=== PATIENT | male | born 1965 | race Caucasian/White ===

== ENCOUNTER 2017-10-21 05:13 | Inpatient (IN) | payer OTHER ==
[2017-10-01 11:06] VITALS: Ht 175.3 cm; Wt 109.5 kg
--- NOTE | 2017-10-01 11:32 | PAT Medication Instructions ---
Service Date Oct 01, 2017. Current Home Medication List Acetaminophen Tab (Tylenol), 650 MG PO PRN Azathioprine (Imuran), 100 MG PO QPM B-Complex W/ Folic Acid (Super B Complex Maxi), 1 TAB PO QPM Cholecalciferol (Vitamin D3), 1,000 UNITS PO BID Cyanocobalamin (Vitamin B12), 1,000 MCG PO QAM Fenugreek (Trigonella Foenum-G (Fenugreek), 1,220 MG PO BID Fish Oil ([place]-3), 1 CAP PO BID Ginkgo Biloba (Ginkgo Biloba), 60 MG PO BID Misc Natural Products (Ginkgo Biloba) Multivitamin (Multivitamin), 1 TAB PO QAM Omeprazole (Prilosec), 20 MG PO QAM Saw Headrick (Serenoa Repens) (Saw Headrick), 900 MG PO BID Blu's Wort (Sand Pillow Perf (St Wyman Wort), 300 MG PO BID Sulfasalazine (Azulfidine), 1,000 MG PO BID [Calcium], 1,200 MG PO BID [Folic Acid], 800 MCG PO QPM [Voltaren Gel], 1 DOSE TOP PRN Medication Instructions For Your Scheduled Surgery - Check with surgeon and prescribing physician for instructions: Sulfasalazine (Azulfidine), 1,000 MG PO BID Azathioprine (Imuran), 100 MG PO QPM - Hold the following medications 2 weeks prior to surgery: Saw Headrick (Serenoa Repens) (Saw Headrick), 900 MG PO BID Blu's Wort (Sand Pillow Perf (St Wyman Wort), 300 MG PO BID Fish Oil ([place]-3), 1 CAP PO BID Ginkgo Biloba (Ginkgo Biloba), 60 MG PO BID Misc Natural Products (Ginkgo Biloba) Fenugreek (Trigonella Foenum-G (Fenugreek), 1,220 MG PO BID - Hold the following medications 24 hours prior to surgery: [Voltaren Gel], 1 DOSE TOP PRN - Hold the following medications the morning of surgery: B-Complex W/ Folic Acid (Super B Complex Maxi), 1 TAB PO QPM Cholecalciferol (Vitamin D3), 1,000 UNITS PO BID Cyanocobalamin (Vitamin B12), 1,000 MCG PO QAM Multivitamin (Multivitamin), 1 TAB PO QAM [Calcium], 1,200 MG PO BID - Take the following medications the morning of surgery with a sip of water: Omeprazole (Prilosec), 20 MG PO QAM Acetaminophen Tab (Tylenol), 650 MG PO PRN (okay to take up to 4 hours prior to surgery if needed) - Take the following medications as scheduled the night before surgery: [Folic Acid], 800 MCG PO QPM [Calcium], 1,200 MG PO BID Acetaminophen Tab (Tylenol), 650 MG PO PRN (if needed) If you have any questions please call us at [phone] or [phone] or [phone]
--- NOTE | 2017-10-01 12:14 | DIAGNOSTIC IMAGING REPORT ---
CHEST 2 VIEWS ROUTINE HISTORY: 52 years-old Male PAT preoperative exam. No acute chest complaints. COMPARISON: None available TECHNIQUE: PA and lateral views of the chest FINDINGS: Cardiac mediastinal and hilar silhouettes are within normal limits. Patient is slightly rotated to the right. There is no pneumothorax, pleural effusion, focal airspace consolidation or overt pulmonary edema. The bones of the chest appear grossly intact. Degenerative changes are seen within the shoulders and spine. Mild anterior wedging of a lower thoracic segment, likely the T11 vertebral body is noted which is age indeterminate. IMPRESSION: No acute process of the chest. The above report was generated using voice recognition software. It may contain grammatical, syntax or spelling errors. Electronically signed by: Jl Apple M.D. 10/01/2017 12:13 PM Dictated Date/Time: 10/01/2017 12:11 PM
[2017-10-01 12:16] LABS: BASO % 0.2 %; BASO ABS # 0.01 K/uL (0-0.2); EOS % 0.4 %; EOS ABS # 0.02 K/uL (0-0.5); HEMATOCRIT 40.4 % (42-52); HEMOGLOBIN 13.5 g/dL (14.0-18.0); IG# 0.01 K/uL (0.00-0.02); LYMPH % 20.2 %; LYMPH ABS # 1.03 K/uL (1.2-3.4); MEAN CELL VOLUME 84.3 fL (80-100); MEAN CORPUSCULAR HEMOGLOBIN 28.2 pg (25-34); MEAN CORPUSCULAR HGB CONC 33.4 g/dl (32-36); MEAN PLATELET VOLUME 8.9 fL (7.4-10.4); MONO ABS # 0.51 K/uL (0.11-0.59); NEUT ABS # 3.52 K/uL (1.4-6.5); PLATELET COUNT 257 K/uL (130-400); RED CELL DISTRIBUTION WIDTH CV 14.3 % (11.5-14.5); RED CELL DISTRIBUTION WIDTH SD 44.6 fL (36.4-46.3)
[2017-10-01 12:27] LABS: ALBUMIN 3.4 gm/dl (3.4-5.0); CALCIUM 9.1 mg/dl (8.5-10.1); CREATININE 0.79 mg/dl (0.60-1.40); POTASSIUM 4.1 mmol/L (3.5-5.1)
[2017-10-01 12:35] LABS: INR 1.1 (0.9-1.1); PTT PATIENT 29.9 SECONDS (21.0-31.0)
[2017-10-01 12:56] LABS: HEMOGLOBIN A1C 4.6 % (4.5-5.6)
--- NOTE | 2017-10-14 15:35 | HISTORY & PHYSICAL EXAMINATION ---
DATE OF ADMISSION: 10/21/2017 CHIEF COMPLAINT: Right knee pain. HISTORY OF PRESENT ILLNESS: Mr. Pham is a 52-year-old male with a multiple year history of right knee pain. The patient rates his pain at 5/10. He has pain with his daily activities. He has limited standing and walking tolerance. Pain is worse with weightbearing. The patient has previous injections, knee arthroscopy and bracing and Tylenol without relief. He has failed conservative treatment and is scheduled for right knee replacement. PAST MEDICAL HISTORY: Crohn's disease. Denies heart disease, diabetes or DVT. PAST SURGICAL HISTORY: Umbilical hernia resection and right knee arthroscopy. SOCIAL HISTORY: The patient denies alcohol or tobacco use. He lives in a single story home with his and his father. He is currently off on disability. FAMILY HISTORY: Negative for DVT. MEDICATIONS: Fish oil, Tylenol, Super B Complex, Prilosec 20 mg, folic acid 1 mg, sulfasalazine 500 mg, and vitamin D3 of 5000 units. ALLERGIES: None. REVIEW OF SYSTEMS: See HPI. Ten other systems reviewed, all negative. PHYSICAL EXAMINATION: VITAL SIGNS: Height 5 feet 9 inches, weight 242 pounds, and BMI 36. GENERAL: This is a well-developed and well-nourished male who is alert and oriented x3. Mood and affect are appropriate. HEENT: Normocephalic and atraumatic. Mucous membranes are moist and intact. NECK: Supple without lymphadenopathy. HEART: Regular rate and rhythm without murmurs, rubs or gallops. LUNGS: Clear to auscultation without wheezes or rhonchi. ABDOMEN: Soft and nontender. Bowel sounds are equal and active. EXTREMITIES: No ecchymosis, redness or warmth. He has varus deformity. Range of motion is from 10-95 degrees with no laxity. He is neurovascularly intact. He has moderate effusion. Mild distal edema noted. Strength is +5/5. X-RAY EXAMINATION: AP and lateral views show joint space narrowing and osteophyte formation. IMPRESSION: Degenerative joint disease, right knee. PLAN: The patient will be admitted for a right total knee arthroplasty. We will plan on aspirin for DVT prophylaxis. The patient will do home health physical therapy upon discharge. VALERIY
[~2017-10-21] VITALS: Ht 175.3 cm; Wt 109.5 kg
[2017-10-21] VITALS (11 sets, daily range): BP systolic 107–132; BP diastolic 72–91; PULSE 80–110; TEMP 36.3–37; O2SAT 94–98
[~2017-10-21 05:13] MED LIST: ACET-1693 PO; AZAT50TA17 PO; B-CO-25 PO; CALC-51 PO; CHOL1CAP57 PO; CYAN100020 PO; FENU1CAP2 PO; FOLIC ACID PO; GINK60TA PO; MISCTAB26; MULT-506 PO; OMEG10007 PO; PRLSR20 PO; SAW450CA5 PO; ST J300T2 PO; SULF500T36 PO; VOLTAREN GEL TOP
[2017-10-21] MEDS ORDERED: CeleBREX 200 MG CAP PO SCH (06:00)
[2017-10-21] MEDS ORDERED: DEXAMETHASONE 4 MG TAB PO SCH (06:00)
[2017-10-21] MEDS ORDERED: CEFAZOLIN 2000MG IV PUSH 15 ML IV SCH (06:00)
[2017-10-21] MEDS ORDERED: GABAPENTIN 900 MG PO SCH (06:00)
[2017-10-21] MEDS ORDERED: LACTATED RINGER'S 1000ML 1,000 ML IV SCH (06:00)
[2017-10-21] MEDS ORDERED: ROPIVACAINE 5MG/ML 30 ML 150 MG, BUPIVACAINE 0.5% MPF INJ 30 ML, EpINEphrine HCL INJ 0.... INFIL SCH ×8 (06:00)
[2017-10-21] MEDS ORDERED: LACTATED RINGER'S 1000ML 500 ML IV SCH (06:00)
[2017-10-21] MEDS ORDERED: METOCLOPRAMIDE HCL 10 MG TAB PO SCH (06:00)
[2017-10-21] MEDS ORDERED: ACETAMINOPHEN 500 MG TAB PO SCH (06:00)
[2017-10-21] MEDS ORDERED: FAMOTIDINE 20 MG TAB PO SCH (06:00)
[2017-10-21] MEDS ORDERED: PROPOFOL IV EMULSION 10 MG/ML 20 ML VIAL IV ONE (06:23)
[2017-10-21] MEDS ORDERED: FENTANYL CITRATE INJ 50 MCG/1 ML 2 ML VIAL ONE (06:24)
[2017-10-21] MEDS ORDERED: MIDAZOLAM HCL 1 MG/ML 2ML VIAL ONE ×2 (06:24→06:46)
[2017-10-21] MEDS: TRANEXAMIC ACID INJ 1,000 MG x 2 Bags IV SCH ×4 (06:30→06:41)
[2017-10-21] MEDS ORDERED: ROPIVACAINE 0.5% 5 MG/ML 30 ML VIAL ONE (06:32)
[2017-10-21] MEDS ORDERED: BUPIVACAINE 0.5 % 5 MG/1 ML PF 10ML VIAL ONE (06:32)
[2017-10-21] MEDS ORDERED: POVIDONE-IODINE OP SOLN 30 ML BTL ONE (06:51)
[2017-10-21] MEDS ORDERED: ORTHO JOINT ANESTHETIC ONE (06:51)
[2017-10-21] MEDS ORDERED: BACITRACIN 50000 UNIT VIAL ONE (06:51)
--- NOTE | 2017-10-21 07:07 | History & Physical Bridge Note ---
H&P Re-Evaluation Bridge Note: I have examined the patient, reviewed the History & Physical and in the interval since the performance of the History & Physical I have noted the following changes of clinical significance: No changes noted
--- NOTE | 2017-10-21 08:29 | [facility] Post Operative Brief Note ---
Immediate Operative Summary Operative Date Oct 21, 2017. Pre-Operative Diagnosis Degenerative joint disease, right knee Post-Operative Diagnosis Same as preop Procedure(s) Performed Right Total Knee Arthroplasty utilizing Mccartney nephPredictivez journey to non block total knee arthroplasty size 7 femur 6 tibia 9 hien [address] Rothman Harvest Manager Surgeon(s) Renato Agosto PA-C Estimated Blood Loss 5 cc Findings Consistent with Post-Op Diagnosis Specimens A: right knee bone and tissue Anesthesia Type MAC Spinal Regional Complication(s) none Disposition Disposition: Recovery Room / PACU
--- NOTE | 2017-10-21 08:30 | [facility] Operative Report ---
Operative Report Operative Date Oct 21, 2017. Pre-Operative Diagnosis Degenerative joint disease, right knee Post-Operative Diagnosis Same as preop Procedure(s) Performed Right Total Knee Arthroplasty utilizing [facility]ney [facility] [employer] journey to non block total knee arthroplasty size 7 femur 6 tibia 9 hien [address] Rothman Drawbench Operator Helper Surgeon(s) Renato Agosto PA-C Estimated Blood Loss 5 cc Findings Patient presents with severe end-stage tricompartmental degenerative joint disease no response to conservative therapy including physical therapy anti- inflammatories relative rest activity modification x-rays will be evidence of subchondral cystic changes marginal osteophyte sclerosis Specimens A: right knee bone and tissue Anesthesia Type MAC Spinal Regional Complication(s) none Disposition Recovery Room / PACU Indications Patient presents after failing attempts at conservative management including physical therapy anti-inflammatories relative rest patient's bone to bone varus alignment subchondral cystic changes marginal osteophyte sclerosis Description of Procedure After proper prepping and draping of the Right lower extremity anterior midline incision was made over the region of the extensor extensor mechanism after meticulous hemostasis was obtained and maintained in subcutaneous tissues a medial parapatellar incision was made The patella was subluxed lateralward the medial lateral gutter were cleaned from any hypertrophic synovitis and scar tissue of the distal femoral block was placed and the distal femoral osteotomy cut was made subsequently the chamfers anterior and posterior osteotomy cuts were made utilizing the 4-in-1 block the tibia was subsequently subluxed anteriorward medial and ateral meniscal remnants were excised in their entirety remnants of the anterior and posterior cruciate ligaments were excised in their entirety excellent exposure of the proximal tibia was obtained the tibial osteotomy guide was placed on the proximal tibial osteotomy cut was made once again the knee was irrigated with copious amounts of sterile saline solution the patella was subsequently everted lateralward thickened scar tissue around the patella was removed the patella was subsequently cut utilizing a freehand technique and was drilled prepared for final preparation and placement of patella socially flexion-extension gaps were checked and the equal and symmetric trials were placed to the appropriate femoral and tibial trials with poly-spacer being placed for equal flexion and extension gaps and full range of motion including extension to 0 and flexion to 140 the trial components after having been taken to recovery range of motion was subsequently removed meticulous hemostasis was obtained and maintained subsequently a knee block injection of joint cocktail including ropivacaine 0.5% 150 mg. Bupivacaine 0.5 % epinephrine 1-200,030 mL's toradol 30 mg dexamethasone 4 mg ketamine 10 mg clonidine 100 micrograms normal saline solution 30 mg was infiltrated into the soft tissues of the posterior knee medial lateral gutters and periosteal synovium special attention was paid to protect neurovascular structures at all times subsequently trial components having been removed the knee was irrigated with sterile saline solution. debris was removed the proximal tibia was subsequently prepared and was made ready for the placement of the tibial component tibial component was also cemented and tamped into position the femoral component was subsequently placed and cemented in the position the patellar component was subsequently cemented in position because hemostasis once again obtained and maintained wound having been thoroughly irrigated with debridement and debridement lavage was performed as well as a medial parapatellar incision closed with #1 Vicryl in interrupted fashion subcutaneous was closed with #2 Vicryl skin was closed with skin clips. PA-C was necessary for prepping and drapping as well as wound closure of deep fascia Sub cutaneous tissue and skin and was necessary for the case. A sterile compressive dressing was placed patient was taken to recovery in stable condition of report dictated by Stephan I attest to the content of the Intraoperative Record and any orders documented therein. Any exceptions are noted below. I attest to the content of the Intraoperative Record and any orders documented therein. Any exceptions are noted below.
[2017-10-21] MEDS ORDERED: EpHEDrine SULFATE INJ 50 MG/ML AMP IV PRN (09:00)
[2017-10-21] MEDS ORDERED: ATROPINE SULFATE 0.1 MG/ML 5ML SYR IV PRN (09:00)
[2017-10-21] MEDS ORDERED: SOD PHOSPHATE/SOD BIPHOSPHATE ENEMA 132 ML BTL PR PRN (09:15)
[2017-10-21] MEDS ORDERED: BISACODYL 10 MG SUPP PR PRN (09:15)
[2017-10-21] MEDS ORDERED: MoRPHine SULFATE 2 MG/ML CARP IV PRN (09:15)
[2017-10-21] MEDS ORDERED: ONDANSETRON INJ 2 MG/ML 2 ML VIAL IV PRN (09:15)
[2017-10-21] MEDS ORDERED: MAGNESIUM HYDROXIDE SUSP 30 ML UDC PO PRN (09:15)
[2017-10-21] MEDS ORDERED: ZOLPIDEM TARTRATE 5 MG TAB PO PRN (09:15)
[2017-10-21] MEDS ORDERED: ALUMINUM/MAGNESIUM/SIMETH (MAALOX MAX) 30 ML UDC PO PRN (09:15)
--- NOTE | 2017-10-21 09:43 | DIAGNOSTIC IMAGING REPORT ---
R KNEE 1 OR 2 VIEWS ROUTINE CLINICAL HISTORY: 52 years-old Male presenting with AP/LATERAL IN PACU RIGHT KNEE. TECHNIQUE: Frontal and lateral views of the right knee were obtained. COMPARISON: None. FINDINGS: Postsurgical changes of total right knee arthroplasty with patellar resurfacing. A surgical drain is in place. Expected intra-articular and soft tissue emphysema. Diffuse soft tissue swelling at the knee. No malalignment. No periprosthetic fracture or complication. IMPRESSION: Expected postsurgical appearance status post total right knee arthroplasty with patellar resurfacing. Electronically signed by: Kevin Martini M.D. 10/21/2017 9:42 AM Dictated Date/Time: 10/21/2017 9:41 AM
--- NOTE | 2017-10-21 09:44 | Anesthesiology Progress Note ---
Anesthesia Post Op Note Date & Time Oct 21, 2017 at 09:43 Vital Signs Pain Intensity: 0 Vital Signs Past 12 Hours Date Time Temp Pulse Resp B/P (MAP) Pulse Ox O2 Delivery O2 Flow Rate FiO2 10/21/17 09:35 36.4 88 22 121/84 97 Nasal Cannula 2 10/21/17 09:05 36.0 100 16 113/73 96 Oxymask 10 10/21/17 06:00 36.7 80 18 125/91 94 Room Air Notes Mental Status: alert / awake / arousable, participated in evaluation Pt Amnestic to Procedure: Yes Nausea / Vomiting: adequately controlled Pain: adequately controlled Airway Patency, RR, SpO2: stable & adequate BP & HR: stable & adequate Hydration State: stable & adequate Neuraxial Anesthesia: was administered, sensory block is resolving Anesthetic Complications: no major complications apparent
[2017-10-21] MEDS: KETOROLAC TROMETHAMINE 30 MG/ML VIAL IV. PRN ×2 (12:43→21:58)
[2017-10-21] MEDS ORDERED: MoRPHine SULFATE 10 MG/ML CARP/VIAL IV PRN (12:45)
[2017-10-21] MEDS ORDERED: MoRPHine SULFATE 4 MG/ML 1 ML CARP\\VIAL IV PRN (12:45)
[2017-10-21] MEDS: ACETAMINOPHEN 500 MG TAB PO SCH ×2 (13:25→21:48)
[2017-10-21] MEDS: D5W AND 1/2NSS + 20MEQ KCL 1,000 ML IV SCH ×2 (13:25→22:51)
[2017-10-21] MEDS: OXYCODONE HCL IR 5 MG TAB (IMMEDIATE RELEASE) PO PRN ×2 (16:03→20:51)
[2017-10-21] MEDS: CEFAZOLIN IV 2,000 MG in SYRINGE 0 ML IV SCH ×2 (16:50→23:57)
[2017-10-21] MEDS: VITAMIN B COMPLEX TAB PO SCH (20:43)
[2017-10-21] MEDS: CHOLECALCIFEROL 1000 INTER.UNIT TAB PO SCH (20:43)
[2017-10-21] MEDS: AZATHIOPRINE 50 MG TAB PO SCH (20:43)
[2017-10-21] MEDS: DOCUSATE SODIUM 100 MG CAP PO SCH (20:44)
[2017-10-21] MEDS: ASPIRIN 81 MG ECTAB PO SCH (20:44)
[2017-10-21] MEDS: FoLIC ACID TAB 400 MCG TAB PO SCH (20:44)
[2017-10-21] MEDS: SULFASALAZINE 500 MG TAB PO SCH (20:45)
[2017-10-21] MEDS: CALCIUM 600MG + VIT D 400 IU TAB PO SCH (20:45)
[2017-10-21] MEDS: SENNA 8.6 MG TAB PO SCH (20:47)
[2017-10-21] MEDS ORDERED: CALCIUM 600MG + VIT D 400 IU TAB PO SCH (21:00)
[2017-10-22] VITALS (7 sets, daily range): BP systolic 106–132; BP diastolic 69–82; PULSE 75–103; TEMP 36.5–36.9; O2SAT 92–95
[2017-10-22] MEDS: OXYCODONE HCL IR 5 MG TAB (IMMEDIATE RELEASE) PO PRN ×3 (02:41→13:41)
[2017-10-22] MEDS: KETOROLAC TROMETHAMINE 30 MG/ML VIAL IV. PRN (04:24)
[2017-10-22] MEDS: ACETAMINOPHEN 500 MG TAB PO SCH ×3 (05:34→20:58)
[2017-10-22 08:23] LABS: HEMATOCRIT 32.3 % (42-52); HEMOGLOBIN 10.8 g/dL (14.0-18.0); MEAN CELL VOLUME 82.8 fL (80-100); MEAN CORPUSCULAR HEMOGLOBIN 27.7 pg (25-34); MEAN CORPUSCULAR HGB CONC 33.4 g/dl (32-36); MEAN PLATELET VOLUME 8.6 fL (7.4-10.4); PLATELET COUNT 203 K/uL (130-400); WHITE BLOOD COUNT 6.57 K/uL (4.8-10.8)
--- NOTE | 2017-10-22 08:23 | Orthopedic Progress Note ---
Orthopedic Progress Note Date of Service Oct 22, 2017. Subjective Post OP Day: 1 Reports: feeling well, Denies: chest pain, SOB, nausea / vomiting, light headedness, calf pain Objective calves soft nontender, N/V intact, capillary refill less than 2 sec., dressing C /D/I, A&O x3, toes mobile, hemovac drainage (475/100CC PER SHIFT) Date Time Temp Pulse Resp B/P (MAP) Pulse Ox O2 Delivery O2 Flow Rate FiO2 10/22/17 07:50 36.6 75 16 122/74 (90) 94 Room Air 10/22/17 03:20 36.8 89 18 106/69 (81) 95 Room Air 10/21/17 23:55 Room Air 10/21/17 23:15 37.0 90 18 107/72 (84) 94 Room Air 10/21/17 19:17 36.5 110 18 112/80 (91) 94 Room Air 10/21/17 16:15 95 Nasal Cannula 2.0 10/21/17 14:51 36.3 102 16 107/73 (84) 95 Nasal Cannula 2.0 10/21/17 13:00 98 16 117/82 (94) 98 Nasal Cannula 2.0 10/21/17 12:02 100 16 132/85 (101) 97 Nasal Cannula 2.0 10/21/17 11:00 89 16 123/86 (98) 97 Nasal Cannula 2.0 10/21/17 10:30 98 16 117/80 (92) 96 Nasal Cannula 2.0 10/21/17 10:00 96 Nasal Cannula 2.0 10/21/17 09:59 96 Nasal Cannula 2.0 10/21/17 09:57 36.9 84 18 113/77 (89) 96 Nasal Cannula 2.0 10/21/17 09:45 92 24 115/86 95 Nasal Cannula 2 10/21/17 09:35 36.4 88 22 121/84 97 Nasal Cannula 2 10/21/17 09:05 36.0 100 16 113/73 96 Oxymask 10 Laboratory Results 24 Hours: Test 10/22/17 07:54 Assessment & Plan Assessment: POD#1 SP RIGHT TKA Plan: PT/OT DVT PROPH-ASA 8MG BID PAIN MANAGEMENT- YONI, TYLENOL, CELEBREX DC PLANNING- DC HOME THURS WITH ADVANTAGE DC DRESSING/DRAIN IN AM.
--- NOTE | 2017-10-22 08:24 | Discharge Instructions ---
Discharge Instructions Date of Service Oct 22, 2017. Admission Reason for Admission: Right Knee Osteoarthritis Discharge Discharge Diagnosis / Problem: SP RIGHT TKA Discharge Goals Goal(s): Decrease discomfort, Improve function, Increase independence Activity Recommendations Activity Limitations: per Instructions/Follow-up section . Instructions / Follow-Up Instructions / Follow-Up ACTIVITY RECOMMENDATIONS: SELF CARE INSTRUCTIONS AFTER TOTAL KNEE REPLACEMENT A. You may need to continue a physical therapy program after discharge from the hospital. There are several options available to you. Your doctor will assist you in selecting the best one for you. 1. An out-patient facility 2 to 3 times a week for therapy or home therapy. 2. Continue working on all exercises taught to you in the hospital. Your goals should be to increase bending of your knee to 90 degrees and beyond and to fully straighten your knee. B. You may progress at your own pace from walking with a walker or crutches to a cane; then to no assistive devices. C. Make walking a part of your daily routine. Be up as much as comfortable with rest periods throughout the day. Rest with leg elevation is very important. Use the ice wrap frequently for the first 3-4 weeks. D. There are no restrictions on activities. You may ride in a car, shop, participate in outreach rep and all social activities. E. Wear the long elastic stockings (BUD hose) 20 hours a day for 2 weeks after surgery. They can be removed several times a day for laundering and for a bath. F. You may shower, no tub baths until cleared by your doctor. SPECIAL CARE INSTRUCTIONS: VERY IMPORTANT TO READ AND REVIEW A. There are a few signs you need to watch for after you are home. Call [facility] if you notice any of the followin. Increased severe knee pain. Some pain is expected especially when you exercise. 2. Increased swelling in your leg or knee; pain or swelling of the calf muscle in either lower leg. 3. Any fluid drainage from the incision. 4. Shortness of breath or chest pain. B. Please call [facility] at if you have any concerns or questions about your operation or recovery. The doctor or his nurse will return your call promptly. C. You must take antibiotics before dental work, bladder, bowel or other surgery. Your doctor will provide you with a permanent care to carry describing this precaution. IMPORTANT: * REMEMBER TO TAKE ASPIRIN, 81 MG, TWICE DAILY FOR 4 WEEKS UNLESS OTHERWISE DIRECTED. THIS IS YOUR BLOOD THINNER. * HIGH RISK PATIENTS MAY BE PRESCRIBED A STRONGER BLOOD THINNER. THIS WILL BE PROVIDED AT DISCHARGE. * CALL IF INCREASED PAIN, REDNESS, DRAINAGE OR FEVER GREATER THAT 101. * WEAR BUD HOSE 20 HOURS PER DAY FOR 2 WEEKS. DERMABOND Prineo- This is a mesh tape dressing that is covered with glue. It should remain in place until the incision is properly healed, usually 10-14 days. This dressing is designed to naturally slough off. You may trim the excess mesh tape as it peels off. Incision may be briefly wet in a shower. Dry immediately by blotting with a clean, dry towel. Do not bath or swim until instructed by your doctor. Do not scratch, rub, or pick at the dressing. Do not apply any topical ointments or lotions until dressing is completely removed and/or instructed by your doctor. There may be a small piece of suture material at one end of your incision. Do not pull or trim this. If it is bothersome or catching on clothing, you may cover it with a band-aid. FOLLOW UP VISIT: If appointment is not already scheduled: Please call [facility] to make a follow-up appointment for 2 weeks after your surgery at . Current Hospital Diet Patient's current hospital diet: Regular Diet Discharge Diet Recommended Diet: Regular Diet Procedures Procedures Performed: Right Total Knee Arthroplasty utilizing Mccartney nephTrader Sam journey to non block total knee arthroplasty size 7 femur 6 tibia 9 hien 32 oval patella Pending Studies Studies pending at discharge: no Laboratory Results Hemoglobin A1c Test 10/01/17 11:36 Range/Units Estimated Average Glucose 85 mg/dl Hemoglobin A1c 4.6 4.5-5.6 % Medical Emergencies . Who to Call and When: Medical Emergencies: If at any time you feel your situation is an emergency, please call 911 immediately. . Non-Emergent Contact Non-Emergency issues call your: Surgeon . "Provider Documentation" section prepared by Malka Youngblood. . [place] Drug Monitoring Program Search Results: patient reviewed within database, no issues identified
[2017-10-22] MEDS: D5W AND 1/2NSS + 20MEQ KCL 1,000 ML IV SCH (08:31)
[2017-10-22 08:32] LABS: INR 1.1 (0.9-1.1)
[2017-10-22] MEDS: PANTOprazole SOD 40 MG TAB PO SCH (08:52)
[2017-10-22] MEDS: CHOLECALCIFEROL 1000 INTER.UNIT TAB PO SCH ×2 (08:52→20:58)
[2017-10-22] MEDS: MULTIVITAMIN TAB PO SCH (08:52)
[2017-10-22] MEDS: CYANOCOBALAMIN 500 MCG TAB (VIT B-12) PO SCH (08:52)
[2017-10-22] MEDS: DOCUSATE SODIUM 100 MG CAP PO SCH ×2 (08:53→20:58)
[2017-10-22] MEDS: ASPIRIN 81 MG ECTAB PO SCH ×2 (08:53→20:57)
[2017-10-22] MEDS: CALCIUM 600MG + VIT D 400 IU TAB PO SCH ×2 (08:53→20:57)
[2017-10-22] MEDS: SULFASALAZINE 500 MG TAB PO SCH ×2 (08:53→20:57)
[2017-10-22 08:55] LABS: CALCIUM 8.7 mg/dl (8.5-10.1); CREATININE 0.76 mg/dl (0.60-1.40); POTASSIUM 3.6 mmol/L (3.5-5.1)
--- NOTE | 2017-10-22 11:00 | Anesthesiology Progress Note ---
Anesthesia Post Op Note Date & Time Oct 22, 2017 at 10:59 Vital Signs Pain Intensity: 2.0 Vital Signs Past 12 Hours Date Time Temp Pulse Resp B/P (MAP) Pulse Ox O2 Delivery O2 Flow Rate FiO2 10/22/17 07:55 94 Room Air 10/22/17 07:50 36.6 75 16 122/74 (90) 94 Room Air 10/22/17 03:20 36.8 89 18 106/69 (81) 95 Room Air 10/21/17 23:55 Room Air 10/21/17 23:15 37.0 90 18 107/72 (84) 94 Room Air Notes Mental Status: alert / awake / arousable, participated in evaluation Pt Amnestic to Procedure: Yes Nausea / Vomiting: adequately controlled Pain: adequately controlled Airway Patency, RR, SpO2: stable & adequate BP & HR: stable & adequate Hydration State: stable & adequate Neuraxial Anesthesia: was administered, sensory block resolved Anesthetic Complications: no major complications apparent
[2017-10-22] MEDS: TRAMADOL HCL 50 MG TAB PO PRN ×3 (11:41→23:59)
[2017-10-22] MEDS: VITAMIN B COMPLEX TAB PO SCH (20:55)
[2017-10-22] MEDS: AZATHIOPRINE 50 MG TAB PO SCH (20:56)
[2017-10-22] MEDS: FoLIC ACID TAB 400 MCG TAB PO SCH (20:57)
[2017-10-22] MEDS: CeleBREX 200 MG CAP PO SCH (20:57)
[2017-10-22] MEDS: SENNA 8.6 MG TAB PO SCH (20:57)
[2017-10-23] VITALS: PULSE 80
[2017-10-23] MEDS: ACETAMINOPHEN 500 MG TAB PO SCH ×2 (05:46→14:37)
[2017-10-23 07:31] VITALS: BP 143/88; PULSE 86; TEMP 36.4; O2SAT 95
--- NOTE | 2017-10-23 07:44 | Orthopedic Progress Note ---
Orthopedic Progress Note Date of Service Oct 23, 2017. Subjective Post OP Day: 2 Reports: feeling well, pain controlled w PO medications, Denies: complaints, chest pain, SOB, nausea / vomiting, light headedness, calf pain Objective calves soft nontender, N/V intact, capillary refill less than 2 sec., incision C /D/I, A&O x3, toes mobile Date Time Temp Pulse Resp B/P (MAP) Pulse Ox O2 Delivery O2 Flow Rate FiO2 10/23/17 07:31 36.4 86 16 143/88 (106) 95 Room Air 10/23/17 00:00 80 10/23/17 00:00 Room Air 10/22/17 23:43 36.9 103 20 132/76 (94) 92 Room Air 10/22/17 15:31 36.7 87 18 119/78 (92) 94 Room Air 10/22/17 15:20 94 Room Air 10/22/17 11:53 36.5 80 16 130/82 (98) 95 Room Air 10/22/17 07:55 94 Room Air 10/22/17 07:50 Room Air 10/22/17 07:50 36.6 75 16 122/74 (90) 94 Room Air Laboratory Results 24 Hours: Test 10/22/17 07:54 Hematocrit 32.3 % Hemoglobin 10.8 g/dL Prothromb Time International Ratio 1.1 Prothrombin Time 11.9 SECONDS Assessment & Plan Assessment: POD#2 SP RIGHT TKA Plan: PT/OT DVT PROPH-ASA 8MG BID PAIN MANAGEMENT- YONI, TYLENOL, CELEBREX DC PLANNING- DC HOME TODAy WITH ADVANTAGE Discharge Planning Discharge Planning: home with home health DVT Prophylaxis: TEDs, SCDs, ASA
[2017-10-23] MEDS ORDERED: CLC100 PO (08:14)
[2017-10-23] MEDS ORDERED: ASPEC81 PO (08:14)
[2017-10-23] MEDS ORDERED: CLB200 PO (08:14)
[2017-10-23] MEDS ORDERED: ACET-24 PO (08:14)
[2017-10-23] MEDS ORDERED: ONDA-170 PO (08:14)
[2017-10-23] MEDS ORDERED: RXC5 PO (08:14)
[2017-10-23] MEDS: CeleBREX 200 MG CAP PO SCH (08:54)
[2017-10-23] MEDS: DOCUSATE SODIUM 100 MG CAP PO SCH (08:55)
[2017-10-23] MEDS: CHOLECALCIFEROL 1000 INTER.UNIT TAB PO SCH (08:55)
[2017-10-23] MEDS: PANTOprazole SOD 40 MG TAB PO SCH (08:55)
[2017-10-23] MEDS: CYANOCOBALAMIN 500 MCG TAB (VIT B-12) PO SCH (08:55)
[2017-10-23] MEDS: ASPIRIN 81 MG ECTAB PO SCH (08:55)
[2017-10-23] MEDS: CALCIUM 600MG + VIT D 400 IU TAB PO SCH (08:55)
[2017-10-23] MEDS: MULTIVITAMIN TAB PO SCH (08:55)
[2017-10-23] MEDS: SULFASALAZINE 500 MG TAB PO SCH (08:55)
[2017-10-23] MEDS: OXYCODONE HCL IR 5 MG TAB (IMMEDIATE RELEASE) PO PRN ×2 (08:57→14:37)
--- NOTE | 2017-10-23 09:57 | Discharge Summary ---
Orthopedic Discharge Summary Admission Date/Reason Oct 21, 2017 at 06:45 Right Knee Osteoarthritis. Discharge Date/Disposition Oct 23, 2017 Home with services Diagnosis Principal Diagnosis: right knee osteoarthritis Procedure(s) Performed Right Total Knee Arthroplasty utilizing Mccartney neph journey to non block total knee arthroplasty size 7 femur 6 tibia 9 hien 32 oval patella Consultations NONE Medication Reconciliation New Medications: Ondansetron Hcl (Zofran) 8 Mg Tab 8 MG PO Q8 PRN for Nausea, #20 TAB Acetaminophen (Sb Non-Aspirin Extra Stre) 500 Mg Tab 1000 MG PO Q8, #63 TAB Aspirin (Aspirin EC Low Dose) 81 Mg Ectab 81 MG PO BID for 30 Days, #60 TAB Celecoxib (Celebrex) 200 Mg Cap 200 MG PO BID for 30 Days, #60 CAP Docusate Sodium (Docusate Sodium) 100 Mg Cap 100 MG PO BID for 10 Days, #20 CAP Oxycodone HCl (Oxycodone HCl) 5 Mg Tab 5-10 MG PO Q4H PRN for Pain, #60 TAB Continued Medications: Azathioprine (Imuran) 50 Mg Tab 100 MG PO QPM, TAB B-Complex W/ Folic Acid (Super B Complex Maxi) 1 Tab Tab 1 TAB PO QPM Cholecalciferol (Vitamin D3) 1,000 Unit Cap 1000 UNITS PO BID Cyanocobalamin (Vitamin B12) 1,000 Mcg Tab 1000 MCG PO QAM Multivitamin (Multivitamin) Tab 1 TAB PO QAM, TAB Omeprazole (Prilosec) 20 Mg Capcr 20 MG PO QAM, CAP Sulfasalazine (Azulfidine) 500 Mg Tab 1000 MG PO BID, TAB [Calcium] () 1200 MG PO BID [Folic Acid] () 800 MCG PO QPM Discontinued Medications: Acetaminophen Tab (Tylenol) 325 Mg Tab 650 MG PO PRN, TAB Fenugreek (Trigonella Foenum-G (Fenugreek) 610 Mg Cap 1220 MG PO BID Fish Oil (Varnell-3) 1 Ea Cap 1 CAP PO BID, CAP Ginkgo Biloba (Ginkgo Biloba) 60 Mg Tab 60 MG PO BID Misc Natural Products (Ginkgo Biloba) 1 Tab Tab Saw Burke (Serenoa Repens) (Saw Burke) 450 Mg Cap 900 MG PO BID Blu's Wort ([place] Perf ([place] Wort) 300 Mg Tab 300 MG PO BID [Voltaren Gel] () 1 DOSE TOP PRN Admission Physical Exam As per Admitting History & Physical. Hospital Course Patient was a same day admission after undergoing a successful right TKA. He tolerated the procedure well. Post-operatively, his activity was progressed and well tolerated. Please refer to daily progress notes and PT notes for complete details. After exam on 10/23/17, patient felt to be stable for discharge home with HHPT. Patient will f/u in the office in 2 weeks for further evaluation including x-rays and incision check, sooner if having any issues or concerns. Below are pertinent labs/studies during their hospital stay: Last Vital Signs Documentation Date Time Temp Pulse Resp B/P (MAP) Pulse Ox O2 Delivery O2 Flow Rate FiO2 10/23/17 07:31 36.4 86 16 143/88 (106) 95 Room Air 10/21/17 16:15 2.0 Last Resulted CBC 10/22/17 07:54 Last Resulted BMP 10/22/17 07:54 Discharge Instructions ACTIVITY RECOMMENDATIONS: SELF CARE INSTRUCTIONS AFTER TOTAL KNEE REPLACEMENT A. You may need to continue a physical therapy program after discharge from the hospital. There are several options available to you. Your doctor will assist you in selecting the best one for you. 1. An out-patient facility 2 to 3 times a week for therapy or home therapy. 2. Continue working on all exercises taught to you in the hospital. Your goals should be to increase bending of your knee to 90 degrees and beyond and to fully straighten your knee. B. You may progress at your own pace from walking with a walker or crutches to a cane; then to no assistive devices. C. Make walking a part of your daily routine. Be up as much as comfortable with rest periods throughout the day. Rest with leg elevation is very important. Use the ice wrap frequently for the first 3-4 weeks. D. There are no restrictions on activities. You may ride in a car, shop, participate in planer operator and all social activities. E. Wear the long elastic stockings (BUD hose) 20 hours a day for 2 weeks after surgery. They can be removed several times a day for laundering and for a bath. F. You may shower, no tub baths until cleared by your doctor. SPECIAL CARE INSTRUCTIONS: VERY IMPORTANT TO READ AND REVIEW A. There are a few signs you need to watch for after you are home. Call [facility] if you notice any of the followin. Increased severe knee pain. Some pain is expected especially when you exercise. 2. Increased swelling in your leg or knee; pain or swelling of the calf muscle in either lower leg. 3. Any fluid drainage from the incision. 4. Shortness of breath or chest pain. B. Please call [facility] at if you have any concerns or questions about your operation or recovery. The doctor or his nurse will return your call promptly. C. You must take antibiotics before dental work, bladder, bowel or other surgery. Your doctor will provide you with a permanent care to carry describing this precaution. IMPORTANT: * REMEMBER TO TAKE ASPIRIN, 81 MG, TWICE DAILY FOR 4 WEEKS UNLESS OTHERWISE DIRECTED. THIS IS YOUR BLOOD THINNER. * HIGH RISK PATIENTS MAY BE PRESCRIBED A STRONGER BLOOD THINNER. THIS WILL BE PROVIDED AT DISCHARGE. * CALL IF INCREASED PAIN, REDNESS, DRAINAGE OR FEVER GREATER THAT 101. * WEAR BUD HOSE 20 HOURS PER DAY FOR 2 WEEKS. * DERMABOND Prineo- This is a mesh tape dressing that is covered with glue. It should remain in place until the incision is properly healed, usually 10-14 days. This dressing is designed to naturally slough off. You may trim the excess mesh tape as it peels off. Incision may be briefly wet in a shower. Dry immediately by blotting with a clean, dry towel. Do not bath or swim until instructed by your doctor. Do not scratch, rub, or pick at the dressing. Do not apply any topical ointments or lotions until dressing is completely removed and/or instructed by your doctor. There may be a small piece of suture material at one end of your incision. Do not pull or trim this. If it is bothersome or catching on clothing, you may cover it with a band-aid. FOLLOW UP VISIT: If appointment is not already scheduled: Please call [facility] to make a follow-up appointment for 2 weeks after your surgery at .
[2017-10-23 10:31] VITALS: BP 143/88; PULSE 86; TEMP 36.4; O2SAT 95
[2017-10-23 15:28] VITALS: BP 118/80; PULSE 102; TEMP 36.8; O2SAT 94
[2017-10-23] MEDS: TRAMADOL HCL 50 MG TAB PO PRN (17:11)
== END 2017-10-23 17:44 | disposition home health service (06) | DRG 470 ==
LOC: C.ACU 05:13 → C.3E 06:45 → ENRESERV 09:34
PROVIDERS: ADMIT Orthopaedic Surgery; ATTEND Orthopaedic Surgery
PROC: 0SRC0J9 Replacement of Right Knee Joint with Synthetic Substitute, Cemented, Open Approach (ICD-10-PCS; principal; 2017-10-21 07:15)
DX: M17.11 Unilateral primary osteoarthritis, right knee (principal); K50.90 Crohn's disease, unspecified, without complications

== ENCOUNTER 2017-12-24 20:37 | Inpatient (IN) | payer OTHER ==
[~2017-12-24] VITALS: Ht 175.3 cm; Wt 103.3 kg
[~2017-12-24 20:37] MED LIST changes: -ACET-1693 PO; +ACET-24 PO; +ASPI-320 PO; +CLB200 PO; +CLC100 PO; -FENU1CAP2 PO; -GINK60TA PO; -MISCTAB26; -OMEG10007 PO; +ONDA-170 PO; +RXC5 PO; -SAW450CA5 PO; -ST J300T2 PO; -VOLTAREN GEL TOP
[2017-12-24] MEDS ORDERED: ACETAMINOPHEN 500 MG TAB PO STA (20:54)
[2017-12-24] MEDS ORDERED: SODIUM CHLORIDE 0.9% 1000ML 1,000 ML IV ONE (20:54)
[2017-12-24] MEDS ORDERED: CEFTRIAXONE SOD INJ 1 GM ADDVIAL IV STA (20:54)
[2017-12-24] MEDS ORDERED: KETOROLAC TROMETHAMINE 30 MG/ML VIAL IV STA (20:54)
--- NOTE | 2017-12-24 21:18 | EMERGENCY ROOM VISIT NOTE ---
History Report prepared by Llaita: Harmony Mathur Under the Supervision of: Dr. Alexandr Soni M.D. First contact with patient: 20:49 Chief Complaint: ILLNESS Stated Complaint: FEVER, BODY PAIN, HEAD ACHE History of Present Illness The patient is a 52 year old male who presents to the Emergency Room with complaints of constant generalized illness beginning Friday, four days ago. The patient reports hot flashes, chills, joint pain, "brain fog" and confusion, sore throat, body aches, and dark urine. He also reports a headache which is focused in the front of his forehead. He reports some chest congestion beginning this afternoon. He denies any productive cough, vomiting, diarrhea, abdominal pain, or urinary burning. The patient was seen in a different ED three days ago. While there, he tested negative for the flu and was told he was having a Crohn's disease flare up. He was discharged with Levaquin which he only took two doses of. The patient reports some recent tic bites. He has a history of Crohn's disease which was diagnosed in the early . He is not currently on prednisone for his Crohn's disease. The patient took Tylenol around 1 pm today. Source of History: patient Onset: four days ago Position: other (generalized) Quality: other (illness) Timing: constant Associated Symptoms: + fevers, + chills, + headache, + urinary symptoms, No nausea, No vomiting, No diarrhea Review of Systems See HPI for pertinent positives & negatives. A total of 10 systems reviewed and were otherwise negative. Past Medical & Surgical Surgical Problems: (1) S/P TKR (total knee replacement) Family History Patient reports no known family medical history. Social History Smoking Status: Never Smoker Current/Historical Medications Scheduled Azathioprine (Imuran), 100 MG PO QPM B-Complex W/ Folic Acid (Super B Complex Maxi), 1 TAB PO QPM Calcium (Calcium), 1,200 MG PO DAILY Cholecalciferol (Vitamin D3), 1,000 UNITS PO BID Cyanocobalamin (Vitamin B12), 1,000 MCG PO QAM Cyanocobalamin (B-12 Super Strength), 5,000 MCG INJ WK Ergocalciferol (Vitamin D 66509 Unit), 50,000 UNIT PO WK Folic Acid (Folic Acid), 800 MCG PO DAILY Multivitamin (Multivitamin), 1 TAB PO QAM Omeprazole (Prilosec), 20 MG PO QAM Sulfasalazine (Azulfidine), 1,000 MG PO BID Scheduled PRN Acetaminophen (Tylenol), 1,000 MG PO Q8 PRN for Pain Oxycodone Hcl (Oxycodone Hcl), 5-10 MG PO Q4H PRN for Pain Tramadol (Ultram), 50-100 MG PO Q4H PRN for Pain Allergies Coded Allergies: No Known Allergies (Unverified , 12/24/17) Physical Exam Vital Signs Date Time Temp Pulse Resp B/P (MAP) Pulse Ox O2 Delivery O2 Flow Rate FiO2 12/25/17 00:26 78 18 121/83 95 Room Air 12/24/17 22:12 95 Room Air 12/24/17 22:11 37.6 12/24/17 22:09 90 18 114/79 95 Room Air 12/24/17 20:44 36.3 106 18 109/76 96 Room Air Physical Exam GENERAL: Patient is in no acute distress. HEENT: No acute trauma, normocephalic atraumatic, mucous membranes moist, no nasal congestion, no scleral icterus. No throat erythema or exudate. NECK: No stridor, no adenopathy, no meningismus, trachea is midline. LUNGS: Clear to auscultation bilaterally, no wheeze, no rhonchi, breath sounds equal. HEART: Without murmurs gallops or rubs, regular rate and rhythm. ABDOMEN: Soft, nontender, bowel sounds positive, no hernias, no peritonitis. EXTREMITIES: No cyanosis or edema, full range of motion of all the joints without pain or difficulty, no signs for acute trauma. NEUROLOGIC: Oriented x 3, no acute motor or sensory deficits, no focal weakness. SKIN: No rash, no jaundice, no diaphoresis. Medical Decision & Procedures ER Provider Diagnostic Interpretation: Radiology results as stated below per my review and radiologist interpretation: SINGLE VIEW CHEST CLINICAL HISTORY: Sepsis. FINDINGS: An AP, portable, upright chest radiograph is compared to study dated 10/01/2017. The examination is degraded by portable technique, apical lordotic positioning, and patient rotation. The heart is mildly enlarged. The pulmonary vasculature is noncongested. There is no airspace consolidation or large pleural effusion. Mild bibasilar atelectasis is noted. No pneumothorax is seen. The skeletal structures are osteopenic. The bony thorax is grossly intact. Degenerative change is noted in the shoulders. IMPRESSION: Mild cardiac enlargement with no acute cardiopulmonary abnormality. Electronically signed by: Alexandr Valentin M.D. Laboratory Results 12/24/17 21:10 Red Blood Count 4.46, Mean Corpuscular Volume 82.3, Mean Corpuscular Hemoglobin 27.8, Mean Corpuscular Hemoglobin Concent 33.8, Mean Platelet Volume 9.7, Neutrophils (%) (Auto) 50.9, Lymphocytes (%) (Auto) 32.3, Monocytes (%) (Auto) 13.0, Eosinophils (%) (Auto) 0.4, Basophils (%) (Auto) 3.0, Neutrophils # (Auto ) 1.37, Lymphocytes # (Auto) 0.87, Monocytes # (Auto) 0.35, Eosinophils # (Auto ) 0.01, Basophils # (Auto) 0.08 12/24/17 21:10 Test 12/24/17 21:10 12/24/17 21:17 12/24/17 21:44 White Blood Count 2.69 K/uL (4.8-10.8) Red Blood Count 4.46 M/uL (4.7-6.1) Hemoglobin 12.4 g/dL (14.0-18.0) Hematocrit 36.7 % (42-52) Mean Corpuscular Volume 82.3 fL (80-100) Mean Corpuscular Hemoglobin 27.8 pg (25-34) Mean Corpuscular Hemoglobin Concent 33.8 g/dl (32-36) Platelet Count 113 K/uL (130-400) Mean Platelet Volume 9.7 fL (7.4-10.4) Neutrophils (%) (Auto) 50.9 % Lymphocytes (%) (Auto) 32.3 % Monocytes (%) (Auto) 13.0 % Eosinophils (%) (Auto) 0.4 % Basophils (%) (Auto) 3.0 % Neutrophils # (Auto) 1.37 K/uL (1.4-6.5) Lymphocytes # (Auto) 0.87 K/uL (1.2-3.4) Monocytes # (Auto) 0.35 K/uL (0.11-0.59) Eosinophils # (Auto) 0.01 K/uL (0-0.5) Basophils # (Auto) 0.08 K/uL (0-0.2) RDW Standard Deviation 45.5 fL (36.4-46.3) RDW Coefficient of Variation 15.3 % (11.5-14.5) Immature Granulocyte % (Auto) 0.4 % Immature Granulocyte # (Auto) 0.01 K/uL (0.00-0.02) Prothrombin Time 12.4 SECONDS (9.0-12.0) Prothromb Time International Ratio 1.2 (0.9-1.1) Activated Partial Thromboplast Time 29.4 SECONDS (21.0-31.0) Partial Thromboplastin Ratio 1.1 Anion Gap 6.0 mmol/L (3-11) Est Creatinine Clear Calc Drug Dose 124.4 ml/min Estimated GFR () 118.3 Estimated GFR (Non- 102.1 BUN/Creatinine Ratio 8.7 (10-20) Calcium Level 8.6 mg/dl (8.5-10.1) Magnesium Level 1.7 mg/dl (1.8-2.4) Total Bilirubin 0.9 mg/dl (0.2-1) Aspartate Amino Transf (AST/SGOT) 36 U/L (15-37) Alanine Aminotransferase (ALT/SGPT) 43 U/L (12-78) Alkaline Phosphatase 102 U/L (45-117) Total Protein 7.1 gm/dl (6.4-8.2) Albumin 3.5 gm/dl (3.4-5.0) Globulin 3.6 gm/dl (2.5-4.0) Albumin/Globulin Ratio 1.0 (0.9-2) Lyme Disease IgG Antibody NEG (NEG) Lyme Disease IgM Antibody NEG (NEG) Bedside Lactic Acid Venous 1.97 mmol/L (0.90-1.70) Urine Color DK YELLOW Urine Appearance CLEAR (CLEAR) Urine pH 5.5 (4.5-7.5) Urine Specific [place] 1.026 (1.000-1.030) Urine Protein TRACE (NEG) Urine Glucose (UA) NEG (NEG) Urine Ketones TRACE (NEG) Urine Occult Blood 3+ (NEG) Urine Nitrite POS (NEG) Urine Bilirubin 1+ (NEG) Urine Urobilinogen NEG (NEG) Urine Leukocyte Esterase TRACE (NEG) Urine WBC (Auto) 1-5 /hpf (0-5) Urine RBC (Auto) >30 /hpf (0-4) Urine Hyaline Casts (Auto) 1-5 /lpf (0-5) Urine Epithelial Cells (Auto) 0-5 /lpf (0-5) Urine Bacteria (Auto) NEG (NEG) Laboratory results reviewed by me. Medications Administered Medications (Trade) Dose Ordered Sig/Tripp Route Start Time Stop Time Status Last Admin Dose Admin Sodium Chloride 1,000 ml @ 999 mls/hr Q1H1M ONCE IV 12/24/17 20:54 12/24/17 21:54 DC 12/24/17 21:32 999 MLS/HR Ketorolac Tromethamine (Toradol Inj) 30 mg NOW STAT IV 12/24/17 20:54 12/24/17 20:57 DC 12/24/17 21:33 30 MG Acetaminophen (Tylenol Tab) 1,000 mg NOW STAT PO 12/24/17 20:54 12/24/17 20:57 DC 12/24/17 21:33 1,000 MG Ceftriaxone Sodium (Rocephin Inj) 1 gm NOW STAT IV 12/24/17 20:54 12/24/17 20:57 DC 12/24/17 21:32 1 GM Magnesium Oxide (Mag-Ox Tab) 400 mg NOW STAT PO 12/24/17 22:00 12/24/17 22:01 DC 12/24/17 22:09 400 MG ED Course 2050: The patient was evaluated in room C7. A complete history and physical exam was performed. 2053: Ordered Rocephin Inj 1 gm IV, Acetaminophen 1000 mg PO, Toradol Inj 30 mg IV, Sodium Chloride 1000 ml @ 999 mls/hr IV. 2256: I updated the patient on his test results. He is agreeable to the treatment plan. 2199: Ordered Magnesium Oxide 400 mg PO. 5: Discussed the patient's case with Dr. Noman Gann. The patient will be evaluated for further management. Medical Decision Differential diagnoses include: dehydration, pneumonia, sepsis, bacteremia, UTI , Lyme's disease, electrolyte imbalance, viral illness, immunocompromise. There is no leukocytosis, in fact, the white count is low. Patient is slightly anemic and the platelet count is slightly low. Magnesium is low. No kidney failure. No hepatitis. Lyme disease testing was negative. Chest film does not show pneumonia or CHF. Blood cultures are pending. Urinalysis is consistent with infection. Urine culture is pending. Lactic acid level is very mildly elevated, consistent with dehydration or possibly infection. The patient received IV saline, IV Toradol and oral Tylenol. He was given IV ceftriaxone as antibiotic coverage. He was given oral magnesium. I do think the patient deserves a hospital stay. He is immunocompromised and has a lower white blood cell count. He appears to have a UTI. He has failed outpatient treatment. I did speak to the patient and case management. The on- call hospitalist was consulted. Medication Reconcilliation Current Medication List: was personally reviewed by me Blood Pressure Screening Patient's blood pressure: Normal blood pressure Consults Time Called: [phone] Consulting Physician: Dr. Noman Gann Returned Call: 9 Discussed the patient's case with Dr. Noman Gann. The patient will be evaluated for further management. Impression Primary Impression: UTI (urinary tract infection) Additional Impressions: Fever Immunocompromised Leukopenia Scribe Attestation The scribe's documentation has been prepared under my direction and personally reviewed by me in its entirety. I confirm that the note above accurately reflects all work, treatment, procedures, and medical decision making performed by me. Departure Information Dispostion Being Evaluated By Hospitalist Referrals Dejon Lang D.O. (PCP) Patient Instructions My [facility] Problem Qualifiers
[2017-12-24] MEDS ORDERED: ACET-1256 PO (21:27)
[2017-12-24] MEDS ORDERED: OXYC1CAP5 PO (21:27)
[2017-12-24] MEDS ORDERED: ERGO500037 PO (21:27)
[2017-12-24] MEDS ORDERED: TRAM-10 PO (21:27)
[2017-12-24] MEDS ORDERED: CALC600T37 PO (21:27)
[2017-12-24] MEDS ORDERED: [UNRECOGNIZED DRUG - CODE] INJ (21:27)
[2017-12-24] MEDS ORDERED: FOLI800T PO (21:27)
[2017-12-24 21:33] LABS: BASO ABS # 0.08 K/uL (0-0.2); EOS % 0.4 %; EOS ABS # 0.01 K/uL (0-0.5); HEMATOCRIT 36.7 % (42-52); HEMOGLOBIN 12.4 g/dL (14.0-18.0); IG# 0.01 K/uL (0.00-0.02); LYMPH % 32.3 %; LYMPH ABS # 0.87 K/uL (1.2-3.4); MEAN CELL VOLUME 82.3 fL (80-100); MEAN CORPUSCULAR HEMOGLOBIN 27.8 pg (25-34); MEAN CORPUSCULAR HGB CONC 33.8 g/dl (32-36); MEAN PLATELET VOLUME 9.7 fL (7.4-10.4); MONO ABS # 0.35 K/uL (0.11-0.59); NEUT % 50.9 %; NEUT ABS # 1.37 K/uL (1.4-6.5); PLATELET COUNT 113 K/uL (130-400); RED CELL DISTRIBUTION WIDTH CV 15.3 % (11.5-14.5); RED CELL DISTRIBUTION WIDTH SD 45.5 fL (36.4-46.3); WHITE BLOOD COUNT 2.69 K/uL (4.8-10.8)
[2017-12-24 21:47] LABS: ALBUMIN 3.5 gm/dl (3.4-5.0); CALCIUM 8.6 mg/dl (8.5-10.1); CREATININE 0.84 mg/dl (0.60-1.40); POTASSIUM 3.4 mmol/L (3.5-5.1); TOTAL PROTEIN 7.1 gm/dl (6.4-8.2)
[2017-12-24 21:48] LABS: INR 1.2 (0.9-1.1); PTT PATIENT 29.4 SECONDS (21.0-31.0)
--- NOTE | 2017-12-24 21:54 | DIAGNOSTIC IMAGING REPORT ---
SINGLE VIEW CHEST CLINICAL HISTORY: Sepsis. FINDINGS: An AP, portable, upright chest radiograph is compared to study dated 10/01/2017. The examination is degraded by portable technique, apical lordotic positioning, and patient rotation. The heart is mildly enlarged. The pulmonary vasculature is noncongested. There is no airspace consolidation or large pleural effusion. Mild bibasilar atelectasis is noted. No pneumothorax is seen. The skeletal structures are osteopenic. The bony thorax is grossly intact. Degenerative change is noted in the shoulders. IMPRESSION: Mild cardiac enlargement with no acute cardiopulmonary abnormality. Electronically signed by: Alexandr Valentin M.D. 12/24/2017 9:53 PM Dictated Date/Time: 12/24/2017 9:52 PM
[2017-12-24] MEDS ORDERED: MAGNESIUM OXIDE 400 MG TAB PO STA (22:00)
[2017-12-24] MEDS ORDERED: MAGNESIUM HYDROXIDE SUSP 30 ML UDC PO PRN (23:30)
[2017-12-24] MEDS ORDERED: ONDANSETRON INJ 2 MG/ML 2 ML VIAL IV PRN (23:30)
[2017-12-24] MEDS ORDERED: ALUMINUM/MAGNESIUM/SIMETH (MAALOX MAX) 30 ML UDC PO PRN (23:30)
[2017-12-25] MEDS: SODIUM CHLORIDE 0.9% 1000ML 1,000 ML IV SCH ×3 (00:15→23:49)
--- NOTE | 2017-12-25 00:15 | History and Physical ---
History & Physical Date & Time of Service: December 25, 2017 at 00:08 Chief Complaint: Fever, Body Pain, Head Ache Primary Care Physician: Dejon Lang D.O. History of Present Illness Source: patient, family, clinic records This is a 52 year old male with a past medical history of Crohn's on chronic immunosuppressive therapy - presents with abdominal pain, generalized weakness, lack of appetite, fevers/chills for the past few days. He went to [facility] and was given Levaquin and discharged - diagnosed with likely viral infection. States he did not get better and presented here. Found to have low white count which is new for him. States he did not have nausea/vomiting/ diarrhea. Chronic urinary frequency, no dysuria, hematuria. Past Medical/Surgical History Surgical Problems: (1) S/P TKR (total knee replacement) Family History Patient reports no known family medical history. Social History Smoking Status: Never Smoker Allergies Coded Allergies: No Known Allergies (Unverified , 12/24/17) Home Medications Scheduled Azathioprine (Imuran), 100 MG PO QPM B-Complex W/ Folic Acid (Super B Complex Maxi), 1 TAB PO QPM Calcium (Calcium), 1,200 MG PO DAILY Cholecalciferol (Vitamin D3), 1,000 UNITS PO BID Cyanocobalamin (Vitamin B12), 1,000 MCG PO QAM Cyanocobalamin (B-12 Super Strength), 5,000 MCG INJ WK Ergocalciferol (Vitamin D 71715 Unit), 50,000 UNIT PO WK Folic Acid (Folic Acid), 800 MCG PO DAILY Multivitamin (Multivitamin), 1 TAB PO QAM Omeprazole (Prilosec), 20 MG PO QAM Sulfasalazine (Azulfidine), 1,000 MG PO BID Scheduled PRN Acetaminophen (Tylenol), 1,000 MG PO Q8 PRN for Pain Oxycodone Hcl (Oxycodone Hcl), 5-10 MG PO Q4H PRN for Pain Tramadol (Ultram), 50-100 MG PO Q4H PRN for Pain Review of Systems Constitutional: + fever, + chills, + weakness, + fatigue, + problem reported ( lack of appetite) Eyes: No worsening of vision ENT: No hearing loss Respiratory: No cough, No sputum, No wheezing, No shortness of breath, No dyspnea on exertion, No dyspnea at rest, No hemoptysis Cardiovascular: No chest pain, No edema, No palpitations Abdomen: No pain, No nausea, No vomiting, No diarrhea, No constipation, No GI bleeding Musculoskeletal: No joint pain, No muscle pain Genitourinary - Male: + urinary frequency, No hematuria, No dysuria, No urinary urgency, No urinary hesitancy, No urinary retention, No urinary incontinence Neurologic: No weakness, No numbness/tingling, No vertigo, No balance problems Psychiatric: No depression symptoms, No anxiety, No insomnia Endocrine: No fatigue, No excessive thirst Hematologic / Lymphatic: No abnormal bleeding/bruising Physical Exam Vital Signs Date Time Temp Pulse Resp B/P (MAP) Pulse Ox O2 Delivery O2 Flow Rate FiO2 12/24/17 22:12 95 Room Air 12/24/17 22:11 37.6 12/24/17 22:09 90 18 114/79 95 Room Air 12/24/17 20:44 36.3 106 18 109/76 96 Room Air General Appearance: no apparent distress Head: normocephalic, atraumatic Eyes: normal inspection ENT: hearing grossly normal Respiratory/Chest: chest non-tender, lungs clear, normal breath sounds, no respiratory distress, no accessory muscle use Cardiovascular: regular rate, rhythm, no edema, no gallop, no JVD, no murmur, normal peripheral pulses Abdomen/GI: normal bowel sounds, non tender, soft Extremities/Musculoskelatal: normal inspection, no calf tenderness, normal capillary refill, no pedal edema, normal range of motion, + pertinent finding ( R knee scar noted) 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, no motor/sensory deficits, alert, normal mood/affect, oriented x 3 Skin: normal color, warm/dry, no rash Lymphatic: no adenopathy Diagnostics Laboratory Results Results Past 24 Hours Test 12/24/17 21:10 12/24/17 21:17 12/24/17 21:44 Range/Units White Blood Count 2.69 4.8-10.8 K/uL Red Blood Count 4.46 4.7-6.1 M/uL Hemoglobin 12.4 14.0-18.0 g/dL Hematocrit 36.7 42-52 % Mean Corpuscular Volume 82.3 80-100 fL Mean Corpuscular Hemoglobin 27.8 25-34 pg Mean Corpuscular Hemoglobin Concent 33.8 32-36 g/dl Platelet Count 113 130-400 K/uL Mean Platelet Volume 9.7 7.4-10.4 fL Neutrophils (%) (Auto) 50.9 % Lymphocytes (%) (Auto) 32.3 % Monocytes (%) (Auto) 13.0 % Eosinophils (%) (Auto) 0.4 % Basophils (%) (Auto) 3.0 % Neutrophils # (Auto) 1.37 1.4-6.5 K/uL Lymphocytes # (Auto) 0.87 1.2-3.4 K/uL Monocytes # (Auto) 0.35 0.11-0.59 K/uL Eosinophils # (Auto) 0.01 0-0.5 K/uL Basophils # (Auto) 0.08 0-0.2 K/uL RDW Standard Deviation 45.5 36.4-46.3 fL RDW Coefficient of Variation 15.3 11.5-14.5 % Immature Granulocyte % (Auto) 0.4 % Immature Granulocyte # (Auto) 0.01 0.00-0.02 K/uL Prothrombin Time 12.4 9.0-12.0 SECONDS Prothromb Time International Ratio 1.2 0.9-1.1 Activated Partial Thromboplast Time 29.4 21.0-31.0 SECONDS Partial Thromboplastin Ratio 1.1 Sodium Level 135 136-145 mmol/L Potassium Level 3.4 3.5-5.1 mmol/L Chloride Level 101 98-107 mmol/L Carbon Dioxide Level 28 21-32 mmol/L Anion Gap 6.0 3-11 mmol/L Blood Urea Nitrogen 7 7-18 mg/dl Creatinine 0.84 0.60-1.40 mg/dl Est Creatinine Clear Calc Drug Dose 124.4 ml/min Estimated GFR () 118.3 Estimated GFR (Non- 102.1 BUN/Creatinine Ratio 8.7 10-20 Random Glucose 112 70-99 mg/dl Calcium Level 8.6 8.5-10.1 mg/dl Magnesium Level 1.7 1.8-2.4 mg/dl Total Bilirubin 0.9 0.2-1 mg/dl Aspartate Amino Transf (AST/SGOT) 36 15-37 U/L Alanine Aminotransferase (ALT/SGPT) 43 12-78 U/L Alkaline Phosphatase 102 45-117 U/L Total Protein 7.1 6.4-8.2 gm/dl Albumin 3.5 3.4-5.0 gm/dl Globulin 3.6 2.5-4.0 gm/dl Albumin/Globulin Ratio 1.0 0.9-2 Lyme Disease IgG Antibody NEG NEG Lyme Disease IgM Antibody NEG NEG Bedside Lactic Acid Venous 1.97 0.90-1.70 mmol/L Urine Color DK YELLOW Urine Appearance CLEAR CLEAR Urine pH 5.5 4.5-7.5 Urine Specific [place] 1.026 1.000-1.030 Urine Protein TRACE NEG Urine Glucose (UA) NEG NEG Urine Ketones TRACE NEG Urine Occult Blood 3+ NEG Urine Nitrite POS NEG Urine Bilirubin 1+ NEG Urine Urobilinogen NEG NEG Urine Leukocyte Esterase TRACE NEG Urine WBC (Auto) 1-5 0-5 /hpf Urine RBC (Auto) >30 0-4 /hpf Urine Hyaline Casts (Auto) 1-5 0-5 /lpf Urine Epithelial Cells (Auto) 0-5 0-5 /lpf Urine Bacteria (Auto) NEG NEG Microbiology Results 12/24/17 Blood Culture, Received Pending 12/24/17 Blood Culture, Received Pending 12/24/17 Urine Culture, Received Pending Diagnostic Radiology SINGLE VIEW CHEST CLINICAL HISTORY: Sepsis. FINDINGS: An AP, portable, upright chest radiograph is compared to study dated 10/01/2017. The examination is degraded by portable technique, apical lordotic positioning, and patient rotation. The heart is mildly enlarged. The pulmonary vasculature is noncongested. There is no airspace consolidation or large pleural effusion. Mild bibasilar atelectasis is noted. No pneumothorax is seen. The skeletal structures are osteopenic. The bony thorax is grossly intact. Degenerative change is noted in the shoulders. IMPRESSION: Mild cardiac enlargement with no acute cardiopulmonary abnormality Impression Assessment and Plan This is a 52 year old male with a past medical history of Crohn's on chronic immunosuppressive therapy - presents with abdominal pain, generalized weakness, lack of appetite, fevers/chills for the past few days. Possible Urinary Tract Infection - UA dirty, urine culture pending - chronic urinary frequency - follows with urology, was prescribed Flomax, but now stopped - started on Rocephin - IVFs Leukopenia Thrombocytopenia - possibly related to infection - monitor for improvement Crohn's Disease - hold Imuran and Sulfasalazine - restart prior to discharge DVT ppx - SCDs FULL CODE Resuscitation Status VTE Prophylaxis Will order VTE Prophylaxis: Yes
[2017-12-25 00:45] VITALS: BP 111/73; PULSE 91; TEMP 37.2; O2SAT 95; Ht 175.3 cm; Wt 103.3 kg
[2017-12-25 06:27] LABS: HEMATOCRIT 34.4 % (42-52); HEMOGLOBIN 11.6 g/dL (14.0-18.0); MEAN CELL VOLUME 81.5 fL (80-100); MEAN CORPUSCULAR HEMOGLOBIN 27.5 pg (25-34); MEAN CORPUSCULAR HGB CONC 33.7 g/dl (32-36); PLATELET COUNT 101 K/uL (130-400); RED CELL DISTRIBUTION WIDTH CV 15.4 % (11.5-14.5); RED CELL DISTRIBUTION WIDTH SD 45.6 fL (36.4-46.3); WHITE BLOOD COUNT 2.67 K/uL (4.8-10.8)
[2017-12-25] MEDS: ACETAMINOPHEN 325 MG TAB PO PRN ×2 (06:30→23:49)
[2017-12-25 07:12] LABS: CALCIUM 8.1 mg/dl (8.5-10.1); CREATININE 0.77 mg/dl (0.60-1.40); POTASSIUM 3.7 mmol/L (3.5-5.1)
[2017-12-25] MEDS: PANTOprazole SOD 40 MG TAB PO SCH (07:39)
[2017-12-25 08:26] VITALS: BP 106/68; PULSE 78; TEMP 36.7; O2SAT 94
[2017-12-25 12:16] VITALS: BP 120/77; PULSE 94; O2SAT 98
[2017-12-25 16:25] VITALS: BP 112/74; PULSE 91; TEMP 37.1; O2SAT 94
--- NOTE | 2017-12-25 18:49 | Progress Note ---
Internal Med Progress Note Date of Service: December 25, 2017. Provider Documentation: SUBJECTIVE: feeling better today but still weak and tired afebrile no nausea no chest pain or sob no diarrhea OBJECTIVE: Vital Signs-as noted below Exam: General-alert and awake and oriented. Not in distress ENT-normal hearing Neck-supple Lungs-cta b/l no wheezing or crackles Heart-s1 and s2 heard regular rate and rhythm,no Murmur Abdomen-soft bowel sounds present non tender no distension Extremities-no edema present non tender Neuro-alert and awake moves extremities Lab data as noted below. ASSESSMENT & PLAN: This is a 52 year old male with a past medical history of Crohn's on chronic immunosuppressive therapy - presents with abdominal pain, generalized weakness, lack of appetite, fevers/chills for the past few days. Possible Urinary Tract Infection chronic urinary frequency - follows with urology, was prescribed Flomax, but now stopped on Rocephin on IVFs will f/u cx Leukopenia Thrombocytopenia possibly related to infection Will monitor for improvement Crohn's Disease holding Imuran and Sulfasalazine will restart prior to discharge DVT ppx SCDs FULL CODE DISPOSITION to be determined Vital Signs: Date Time Temp Pulse Resp B/P (MAP) Pulse Ox O2 Delivery O2 Flow Rate FiO2 12/25/17 16:25 37.1 91 22 112/74 (87) 94 Room Air 12/25/17 12:16 94 98 12/25/17 08:26 36.7 78 16 106/68 (81) 94 Room Air 12/25/17 07:45 Room Air 12/25/17 00:45 37.2 91 18 111/73 95 Room Air 12/25/17 00:26 78 18 121/83 95 Room Air 12/24/17 22:12 95 Room Air 12/24/17 22:11 37.6 12/24/17 22:09 90 18 114/79 95 Room Air 12/24/17 20:44 36.3 106 18 109/76 96 Room Air Lab Results: Results Past 24 Hours Test 12/24/17 21:10 12/24/17 21:17 12/24/17 21:44 12/25/17 05:55 Range/Units White Blood Count 2.69 2.67 4.8-10.8 K/uL Red Blood Count 4.46 4.22 4.7-6.1 M/uL Hemoglobin 12.4 11.6 14.0-18.0 g/dL Hematocrit 36.7 34.4 42-52 % Mean Corpuscular Volume 82.3 81.5 80-100 fL Mean Corpuscular Hemoglobin 27.8 27.5 25-34 pg Mean Corpuscular Hemoglobin Concent 33.8 33.7 32-36 g/dl Platelet Count 113 101 130-400 K/uL Mean Platelet Volume 9.7 10.0 7.4-10.4 fL Neutrophils (%) (Auto) 50.9 % Lymphocytes (%) (Auto) 32.3 % Monocytes (%) (Auto) 13.0 % Eosinophils (%) (Auto) 0.4 % Basophils (%) (Auto) 3.0 % Neutrophils # (Auto) 1.37 1.4-6.5 K/uL Lymphocytes # (Auto) 0.87 1.2-3.4 K/uL Monocytes # (Auto) 0.35 0.11-0.59 K/uL Eosinophils # (Auto) 0.01 0-0.5 K/uL Basophils # (Auto) 0.08 0-0.2 K/uL RDW Standard Deviation 45.5 45.6 36.4-46.3 fL RDW Coefficient of Variation 15.3 15.4 11.5-14.5 % Immature Granulocyte % (Auto) 0.4 % Immature Granulocyte # (Auto) 0.01 0.00-0.02 K/uL Prothrombin Time 12.4 9.0-12.0 SECONDS Prothromb Time International Ratio 1.2 0.9-1.1 Activated Partial Thromboplast Time 29.4 21.0-31.0 SECONDS Partial Thromboplastin Ratio 1.1 Sodium Level 135 138 136-145 mmol/L Potassium Level 3.4 3.7 3.5-5.1 mmol/L Chloride Level 101 103 98-107 mmol/L Carbon Dioxide Level 28 29 21-32 mmol/L Anion Gap 6.0 6.0 3-11 mmol/L Blood Urea Nitrogen 7 7 7-18 mg/dl Creatinine 0.84 0.77 0.60-1.40 mg/dl Est Creatinine Clear Calc Drug Dose 124.4 136.0 ml/min Estimated GFR () 118.3 122.6 Estimated GFR (Non- 102.1 105.8 BUN/Creatinine Ratio 8.7 8.9 10-20 Random Glucose 112 95 70-99 mg/dl Calcium Level 8.6 8.1 8.5-10.1 mg/dl Magnesium Level 1.7 1.8 1.8-2.4 mg/dl Total Bilirubin 0.9 0.2-1 mg/dl Aspartate Amino Transf (AST/SGOT) 36 15-37 U/L Alanine Aminotransferase (ALT/SGPT) 43 12-78 U/L Alkaline Phosphatase 102 45-117 U/L Total Protein 7.1 6.4-8.2 gm/dl Albumin 3.5 3.4-5.0 gm/dl Globulin 3.6 2.5-4.0 gm/dl Albumin/Globulin Ratio 1.0 0.9-2 Lyme Disease IgG Antibody NEG NEG Lyme Disease IgM Antibody NEG NEG Bedside Lactic Acid Venous 1.97 0.90-1.70 mmol/L Urine Color DK YELLOW Urine Appearance CLEAR CLEAR Urine pH 5.5 4.5-7.5 Urine Specific [place] 1.026 1.000-1.030 Urine Protein TRACE NEG Urine Glucose (UA) NEG NEG Urine Ketones TRACE NEG Urine Occult Blood 3+ NEG Urine Nitrite POS NEG Urine Bilirubin 1+ NEG Urine Urobilinogen NEG NEG Urine Leukocyte Esterase TRACE NEG Urine WBC (Auto) 1-5 0-5 /hpf Urine RBC (Auto) >30 0-4 /hpf Urine Hyaline Casts (Auto) 1-5 0-5 /lpf Urine Epithelial Cells (Auto) 0-5 0-5 /lpf Urine Bacteria (Auto) NEG NEG Microbiology Results 12/24/17 Blood Culture, Received Pending 12/24/17 Blood Culture, Received Pending 12/24/17 Urine Culture, Received Pending
[2017-12-25] MEDS: CEFTRIAXONE SOD INJ 1 GM in DEXTROSE 5% ADD-VANTAGE 50ML 50 ML IV SCH (21:32)
[2017-12-25 23:07] VITALS: BP 125/82; PULSE 91; TEMP 36.9; O2SAT 96
--- NOTE | 2017-12-26 06:42 | Clinical Documentation Query ---
CLINICAL DOCUMENTATION QUERY 52 yo male with Crohn's on chronic immunosuppressive therapy is admitted with possible UTI. Patient has leukopenia, thrombocytopenia and anemia. In your clinical opinion is this patient being managed for: ( ) Pancytopenia ( ) Not Agree ( ) Other explanation of clinical findings (No explanation is considered a No Response) ( ) Unable to determine ( ) Need to Discuss (Phone CDS or qliq) (No discussion is considered a No Response) The medical record reflects the following clinical findings, treatment, and risk factors. Clinical Indicators: As above Treatment: Serial CBCs, IV hydration, IV Rocephin Risk Factors: Immunosuppressive therapy, UTI Please clarify and document your clinical opinion in the progress notes and discharge summary. Terms such as "probable", "suspected", "likely", "questionable", "possible", or "still to be ruled out" are acceptable. IF IN AGREEMENT, YOU MUST DOCUMENT ABOVE DIAGNOSTIC STATEMENT IN DAILY PROGRESS NOTES AND DISCHARGE SUMMARY. This document is not part of the patient's record. Thank You, Francine Powers RN [phone]
[2017-12-26 07:09] VITALS: BP 123/84; PULSE 92; TEMP 37; O2SAT 96
[2017-12-26] MEDS: ACETAMINOPHEN 325 MG TAB PO PRN (07:37)
[2017-12-26] MEDS: PANTOprazole SOD 40 MG TAB PO SCH (08:42)
[2017-12-26] MEDS ORDERED: TRAMADOL HCL 50 MG TAB PO ONE (12:45)
[2017-12-26 12:55] LABS: BASO % 3.1 %; BASO ABS # 0.09 K/uL (0-0.2); EOS % 0.7 %; EOS ABS # 0.02 K/uL (0-0.5); HEMATOCRIT 36.5 % (42-52); HEMOGLOBIN 12.2 g/dL (14.0-18.0); LYMPH ABS # 1.12 K/uL (1.2-3.4); MEAN CELL VOLUME 81.3 fL (80-100); MEAN CORPUSCULAR HEMOGLOBIN 27.2 pg (25-34); MEAN CORPUSCULAR HGB CONC 33.4 g/dl (32-36); MEAN PLATELET VOLUME 9.9 fL (7.4-10.4); MONO % 11.9 %; MONO ABS # 0.35 K/uL (0.11-0.59); NEUT % 46.3 %; NEUT ABS # 1.37 K/uL (1.4-6.5); PLATELET COUNT 120 K/uL (130-400); RED CELL DISTRIBUTION WIDTH CV 15.4 % (11.5-14.5); RED CELL DISTRIBUTION WIDTH SD 46.1 fL (36.4-46.3); WHITE BLOOD COUNT 2.95 K/uL (4.8-10.8)
[2017-12-26 14:49] VITALS: BP 128/85; PULSE 89; TEMP 36.6; O2SAT 98
--- NOTE | 2017-12-26 17:01 | Progress Note ---
Internal Med Progress Note Date of Service: December 26, 2017. Provider Documentation: SUBJECTIVE: feeling better today but has headache afebrile eating ok no diarrhea seems comfortable OBJECTIVE: Vital Signs-as noted below Exam: General-alert and awake and oriented. Not in distress ENT-normal hearing Neck-supple Lungs-cta b/l no wheezing or crackles Heart-s1 and s2 heard regular rate and rhythm,no Murmur Abdomen-soft bowel sounds present non tender no distension Extremities-no edema present non tender Neuro-alert and awake moves extremities Lab data as noted below. ASSESSMENT & PLAN: This is a 52 year old male with a past medical history of Crohn's on chronic immunosuppressive therapy - presents with abdominal pain, generalized weakness, lack of appetite, fevers/chills for the past few days. Possible Urinary Tract Infection chronic urinary frequency - follows with urology, was prescribed Flomax, but now stopped on Rocephin on IVFs will f/u cx-no growth so far Leukopenia Thrombocytopenia possibly related to infection Will monitor for improvement f/u labs Crohn's Disease holding Imuran and Sulfasalazine will restart prior to discharge DVT ppx SCDs FULL CODE DISPOSITION possible d/c in am Vital Signs: Date Time Temp Pulse Resp B/P (MAP) Pulse Ox O2 Delivery O2 Flow Rate FiO2 12/26/17 14:49 36.6 89 20 128/85 (99) 98 Room Air 12/26/17 09:55 Room Air 12/26/17 07:09 37.0 92 16 123/84 (97) 96 12/26/17 00:00 Room Air 12/25/17 23:07 36.9 91 18 125/82 (96) 96 Room Air 12/25/17 19:24 Room Air Lab Results: Results Past 24 Hours Test 12/26/17 12:47 Range/Units White Blood Count 2.95 4.8-10.8 K/uL Red Blood Count 4.49 4.7-6.1 M/uL Hemoglobin 12.2 14.0-18.0 g/dL Hematocrit 36.5 42-52 % Mean Corpuscular Volume 81.3 80-100 fL Mean Corpuscular Hemoglobin 27.2 25-34 pg Mean Corpuscular Hemoglobin Concent 33.4 32-36 g/dl Platelet Count 120 130-400 K/uL Mean Platelet Volume 9.9 7.4-10.4 fL Neutrophils (%) (Auto) 46.3 % Lymphocytes (%) (Auto) 38.0 % Monocytes (%) (Auto) 11.9 % Eosinophils (%) (Auto) 0.7 % Basophils (%) (Auto) 3.1 % Neutrophils # (Auto) 1.37 1.4-6.5 K/uL Lymphocytes # (Auto) 1.12 1.2-3.4 K/uL Monocytes # (Auto) 0.35 0.11-0.59 K/uL Eosinophils # (Auto) 0.02 0-0.5 K/uL Basophils # (Auto) 0.09 0-0.2 K/uL RDW Standard Deviation 46.1 36.4-46.3 fL RDW Coefficient of Variation 15.4 11.5-14.5 % Immature Granulocyte % (Auto) 0.0 % Immature Granulocyte # (Auto) 0.00 0.00-0.02 K/uL
[2017-12-26] MEDS: TRAMADOL HCL 50 MG TAB PO PRN (20:00)
[2017-12-26] MEDS: CEFTRIAXONE SOD INJ 1 GM in DEXTROSE 5% ADD-VANTAGE 50ML 50 ML IV SCH (22:13)
[2017-12-26 23:26] VITALS: BP 118/75; PULSE 88; TEMP 37.6; O2SAT 95
[2017-12-27] MEDS: TRAMADOL HCL 50 MG TAB PO PRN (04:19)
[2017-12-27 06:55] LABS: BASO % 3.2 %; BASO ABS # 0.12 K/uL (0-0.2); EOS % 0.8 %; EOS ABS # 0.03 K/uL (0-0.5); HEMATOCRIT 34.4 % (42-52); HEMOGLOBIN 11.3 g/dL (14.0-18.0); IG# 0.01 K/uL (0.00-0.02); LYMPH % 48.9 %; LYMPH ABS # 1.86 K/uL (1.2-3.4); MEAN CELL VOLUME 81.9 fL (80-100); MEAN CORPUSCULAR HEMOGLOBIN 26.9 pg (25-34); MEAN CORPUSCULAR HGB CONC 32.8 g/dl (32-36); MEAN PLATELET VOLUME 9.8 fL (7.4-10.4); MONO % 11.6 %; MONO ABS # 0.44 K/uL (0.11-0.59); NEUT % 35.2 %; NEUT ABS # 1.34 K/uL (1.4-6.5); PLATELET COUNT 125 K/uL (130-400); RED CELL DISTRIBUTION WIDTH CV 15.4 % (11.5-14.5); RED CELL DISTRIBUTION WIDTH SD 46.3 fL (36.4-46.3)
[2017-12-27 07:21] LABS: CALCIUM 8.6 mg/dl (8.5-10.1); CREATININE 0.64 mg/dl (0.60-1.40); POTASSIUM 3.6 mmol/L (3.5-5.1)
[2017-12-27 07:48] VITALS: BP 114/74; PULSE 83; TEMP 36.8; O2SAT 93
[2017-12-27] MEDS: PANTOprazole SOD 40 MG TAB PO SCH (08:18)
[2017-12-27] MEDS: ACETAMINOPHEN 325 MG TAB PO PRN (08:19)
[2017-12-27] MEDS ORDERED: SULFAMETHOXAZOLE/TRIMETHOPRIM DS 800/160MG TAB PO ONE (11:00)
[2017-12-27] MEDS ORDERED: SULF-302 PO ×2 (13:52→13:53)
--- NOTE | 2017-12-27 13:54 | Discharge Instructions ---
Discharge Instructions Date of Service December 27, 2017. Admission Reason for Admission: Leukopenia, Uti Discharge Discharge Diagnosis / Problem: UTI Discharge Goals Goal(s): Decrease discomfort, Improve function Activity Recommendations Activity Limitations: resume your previous activity . Instructions / Follow-Up Instructions / Follow-Up FOLLOWUP WITH FAMILY DOCTOR IN ONE WEEK LAB: CBC WITH DIFF IN ONE WEEK WITH FAMILY DOCTOR( FOR LEUKOPENIA) Current Hospital Diet Patient's current hospital diet: Regular Diet Discharge Diet Recommended Diet: Regular Diet Pending Studies Studies pending at discharge: no Laboratory Results Hemoglobin A1c Test 10/01/17 11:36 Range/Units Estimated Average Glucose 85 mg/dl Hemoglobin A1c 4.6 4.5-5.6 % Medical Emergencies . Who to Call and When: Medical Emergencies: If at any time you feel your situation is an emergency, please call 911 immediately. . Non-Emergent Contact Non-Emergency issues call your: Primary Care Provider . . "Provider Documentation" section prepared by Karlos Ochoa. .
[2017-12-27 14:41] VITALS: BP 114/74; PULSE 83; TEMP 36.8; O2SAT 93
--- NOTE | 2017-12-27 19:12 | Progress Note ---
Internal Med Progress Note Date of Service: December 27, 2017. Provider Documentation: SUBJECTIVE: feeling better eating fine ambulating ok no nausea ok for home OBJECTIVE: Vital Signs-as noted below Exam: General-alert and awake and oriented. Not in distress ENT-normal hearing Neck-supple Lungs-cta b/l no wheezing or crackles Heart-s1 and s2 heard regular rate and rhythm,no Murmur Abdomen-soft bowel sounds present non tender no distension Extremities-no edema present non tender Neuro-alert and awake moves extremities Lab data as noted below. ASSESSMENT & PLAN: This is a 52 year old male with a past medical history of Crohn's on chronic immunosuppressive therapy - presents with abdominal pain, generalized weakness, lack of appetite, fevers/chills for the past few days. Possible Urinary Tract Infection chronic urinary frequency - follows with urology, was prescribed Flomax, but now stopped on Rocephin on IVFs will f/u cx-no growth so far d/c on bactrim Leukopenia Thrombocytopenia possibly related to infection improving f/u labs with pcp Crohn's Disease holding Imuran and Sulfasalazine will restart prior to discharge discharged home Vital Signs: Date Time Temp Pulse Resp B/P (MAP) Pulse Ox O2 Delivery O2 Flow Rate FiO2 12/27/17 14:41 36.8 83 22 93 Room Air 12/27/17 08:00 Room Air 12/27/17 07:48 36.8 83 22 114/74 (87) 93 Room Air 12/27/17 00:12 Room Air 12/26/17 23:26 37.6 88 18 118/75 (89) 95 Room Air Lab Results: Results Past 24 Hours Test 12/27/17 06:32 Range/Units White Blood Count 3.80 4.8-10.8 K/uL Red Blood Count 4.20 4.7-6.1 M/uL Hemoglobin 11.3 14.0-18.0 g/dL Hematocrit 34.4 42-52 % Mean Corpuscular Volume 81.9 80-100 fL Mean Corpuscular Hemoglobin 26.9 25-34 pg Mean Corpuscular Hemoglobin Concent 32.8 32-36 g/dl Platelet Count 125 130-400 K/uL Mean Platelet Volume 9.8 7.4-10.4 fL Neutrophils (%) (Auto) 35.2 % Lymphocytes (%) (Auto) 48.9 % Monocytes (%) (Auto) 11.6 % Eosinophils (%) (Auto) 0.8 % Basophils (%) (Auto) 3.2 % Neutrophils # (Auto) 1.34 1.4-6.5 K/uL Lymphocytes # (Auto) 1.86 1.2-3.4 K/uL Monocytes # (Auto) 0.44 0.11-0.59 K/uL Eosinophils # (Auto) 0.03 0-0.5 K/uL Basophils # (Auto) 0.12 0-0.2 K/uL RDW Standard Deviation 46.3 36.4-46.3 fL RDW Coefficient of Variation 15.4 11.5-14.5 % Immature Granulocyte % (Auto) 0.3 % Immature Granulocyte # (Auto) 0.01 0.00-0.02 K/uL Sodium Level 138 136-145 mmol/L Potassium Level 3.6 3.5-5.1 mmol/L Chloride Level 103 98-107 mmol/L Carbon Dioxide Level 29 21-32 mmol/L Anion Gap 5.0 3-11 mmol/L Blood Urea Nitrogen 8 7-18 mg/dl Creatinine 0.64 0.60-1.40 mg/dl Est Creatinine Clear Calc Drug Dose 163.6 ml/min Estimated GFR () 132.3 Estimated GFR (Non- 114.2 BUN/Creatinine Ratio 12.9 10-20 Random Glucose 91 70-99 mg/dl Calcium Level 8.6 8.5-10.1 mg/dl Magnesium Level 1.7 1.8-2.4 mg/dl
--- NOTE | 2017-12-27 19:33 | Discharge Summary ---
Discharge Summary Date of Service December 27, 2017. Discharge Summary Admission Date: December 24, 2017 at 23:28 Discharge Date: December 27, 2017 Discharge Disposition: Home Principal Diagnosis: UTI LEUKOPENIA Secondary Diagnoses/Problems: Crohn's Procedures: CXR: Mild cardiac enlargement with no acute cardiopulmonary abnormality. Medication Reconciliation New Medications: Sulfamethoxazole-Trimethoprim (Smz-Tmp Ds) 1 Tab Tab 1 TAB PO Q12 for 5 Days, #10 TAB Continued Medications: Acetaminophen (Tylenol) 500 Mg Tab 1000 MG PO Q8 PRN for Pain, TAB Azathioprine (Imuran) 50 Mg Tab 100 MG PO QPM, TAB B-Complex W/ Folic Acid (Super B Complex Maxi) 1 Tab Tab 1 TAB PO QPM Calcium (Calcium) 600 Mg Tab 1200 MG PO DAILY Cholecalciferol (Vitamin D3) 1,000 Unit Cap 1000 UNITS PO BID Cyanocobalamin (Vitamin B12) 1,000 Mcg Tab 1000 MCG PO QAM Cyanocobalamin (B-12 Super Strength) 5,000 Mcg/Ml Liq 5000 MCG INJ WK TAKES ON THURSDAYS. Ergocalciferol (Vitamin D 96747 Unit) 50,000 Unit Cap 86553 UNIT PO WK, CAP TAKES ON THURSDAYS. Folic Acid (Folic Acid) 800 Mcg Tab 800 MCG PO DAILY Multivitamin (Multivitamin) Tab 1 TAB PO QAM, TAB Omeprazole (Prilosec) 20 Mg Capcr 20 MG PO QAM, CAP Oxycodone Hcl (Oxycodone Hcl) 5 Mg Cap 5-10 MG PO Q4H PRN for Pain for 30 Days, CAP Sulfasalazine (Azulfidine) 500 Mg Tab 1000 MG PO BID, TAB Tramadol (Ultram) 50 Mg Tab 50-100 MG PO Q4H PRN for Pain, TAB Admission Information HPI (per Admitting provider): This is a 52 year old male with a past medical history of Crohn's on chronic immunosuppressive therapy - presents with abdominal pain, generalized weakness, lack of appetite, fevers/chills for the past few days. He went to [facility] and was given Levaquin and discharged - diagnosed with likely viral infection. States he did not get better and presented here. Found to have low white count which is new for him. States he did not have nausea/vomiting/ diarrhea. Chronic urinary frequency, no dysuria, hematuria. Physical Exam (per Admitting): General Appearance: no apparent distress Head: normocephalic, atraumatic Eyes: normal inspection ENT: hearing grossly normal Respiratory/Chest: chest non-tender, lungs clear, normal breath sounds, no respiratory distress, no accessory muscle use Cardiovascular: regular rate, rhythm, no edema, no gallop, no JVD, no murmur , normal peripheral pulses Abdomen/GI: normal bowel sounds, non tender, soft Extremities/Musculoskelatal: normal inspection, no calf tenderness, normal capillary refill, no pedal edema, normal range of motion, + pertinent finding ( R knee scar noted) Neurologic/Psych: bid manager II-XII nml as tested, no motor/sensory deficits, alert , normal mood/affect, oriented x 3 Skin: normal color, warm/dry, no rash Lymphatic: no adenopathy Hospital Course This is a 52 year old male with a past medical history of Crohn's on chronic immunosuppressive therapy - presents with abdominal pain, generalized weakness, lack of appetite, fevers/chills for the past few days. Possible Urinary Tract Infection chronic urinary frequency - follows with urology, was prescribed Flomax, but now stopped on Rocephin on IVFs will f/u cx-no growth so far d/c on bactrim Leukopenia Thrombocytopenia possibly related to infection improving f/u labs with pcp Crohn's Disease holding Imuran and Sulfasalazine will restart prior to discharge discharged home Total time spent on discharge = 35MINUTES This includes examination of the patient, discharge planning, medication reconciliation, and communication with other providers. Discharge Instructions Discharge Instructions Date of Service December 27, 2017. Admission Reason for Admission: Leukopenia, Uti Discharge Discharge Diagnosis / Problem: UTI Discharge Goals Goal(s): Decrease discomfort, Improve function Activity Recommendations Activity Limitations: resume your previous activity . Instructions / Follow-Up Instructions / Follow-Up FOLLOWUP WITH FAMILY DOCTOR IN ONE WEEK LAB: CBC WITH DIFF IN ONE WEEK WITH FAMILY DOCTOR( FOR LEUKOPENIA) Current Hospital Diet Patient's current hospital diet: Regular Diet Discharge Diet Recommended Diet: Regular Diet Pending Studies Studies pending at discharge: no Laboratory Results Hemoglobin A1c Test 10/01/17 11:36 Range/Units Estimated Average Glucose 85 mg/dl Hemoglobin A1c 4.6 4.5-5.6 % Medical Emergencies . Who to Call and When: Medical Emergencies: If at any time you feel your situation is an emergency, please call 911 immediately. . Non-Emergent Contact Non-Emergency issues call your: Primary Care Provider . .
[2017-12-27] MEDS ORDERED: SULFAMETHOXAZOLE/TRIMETHOPRIM DS 800/160MG TAB PO SCH (21:00)
== END 2017-12-27 15:24 | disposition home or self-care (01) | DRG 690 ==
LOC: C.EDB 20:38 → C.4E 23:28 → ENRESERV 23:47 → CANRESERV 23:47 → ENRESERV 12-25 00:32
PROVIDERS: ADMIT Family Medicine; ATTEND Internal Medicine
DX: N39.0 Urinary tract infection, site not specified (principal); K50.90 Crohn's disease, unspecified, without complications; D89.9 Disorder involving the immune mechanism, unspecified; D69.6 Thrombocytopenia, unspecified; Z96.653 Presence of artificial knee joint, bilateral

== ENCOUNTER 2019-05-05 10:59 | Observation (INO) ==
--- NOTE | 2019-05-04 09:45 | History & Physical Report ---
Date of Service May 04, 2019 date of surgery: 05-05-19 Assessment & Plan (1) Rotator cuff tear, right: Further care discussed with patient and at this point in time has failed conservative measures and would like to proceed with a Right shoulder scope, subacromial decompression, distal clavicle excision, rotator cuff repair. Plan on discharge will be home with outpatient physical therapy. Patient will have follow up appointment in our office two weeks post op for suture removal and re- evaluation. Patient otherwise has no other questions or concerns. (2) AC (acromioclavicular) arthritis: History of Present Illness Chief Complaint: right shoulder pain Primary Care Provider: Dejon Lang DO Mr Pham is a 54 year old male who is here for a follow up of right shoulder pain, presents for pre-op evaluation prior to a right shoulder scope, subacromial decompression, distal clavicle excision and rotator cuff repair at [facility]. He presents with pain and weakness on the right side. The symptoms occur intermittently. Currently the patient states that the symptoms are moderate- severe. The pain is described as aching and throbbing. The symptoms occur intermittently. The symptoms are aggravated by daily activities, driving, lifting, pulling, pushing, repetitive activities and sleeping in any position. In addition to shoulder pain, he is also experiencing decreased mobility, difficulty initiating sleep, nocturnal awakening, joint tenderness and weakness, MRI completed showing tears involving supraspinatus and infraspinatus. Allergies Allergy/AdvReac Type Severity Reaction Status Date / Time azathioprine AdvReac Intermediate Neuro Verified 11/26/18 15:43 changes Home Medications Home Medications Medication Instructions Recorded Confirmed Type Rodri's wort 300 mg PO DAILY 11/26/18 11/26/18 History acetaminophen 1,000 mg PO Q8H PRN 11/26/18 11/26/18 History calcium carbonate [Calcium 600] 1,200 mg PO DAILY 11/26/18 11/26/18 History cholecalciferol (vitamin D3) 1,000 units PO BID 11/26/18 11/26/18 History [Vitamin D3] cyanocobalamin (vitamin B-12) 5,000 mcg IM WK 11/26/18 11/26/18 History cyanocobalamin (vitamin B-12) 1,000 mcg PO DAILY 11/26/18 11/26/18 History [Vitamin B-12] cyclobenzaprine 10 mg PO TID PRN 11/26/18 11/26/18 History ergocalciferol (vitamin D2) 50,000 unit PO WK 11/26/18 11/26/18 History folic acid 800 mcg PO DAILY 11/26/18 11/26/18 History ginkgo biloba 1,000 mg PO BID 11/26/18 11/26/18 History methotrexate sodium 12.5 mg PO WK 11/26/18 11/26/18 History multivitamin 1 tab PO DAILY 11/26/18 11/26/18 History omega 2-ciq-nnq-fish oil [Fish Oil] 1,000 mg PO BID 11/26/18 11/26/18 History omeprazole 40 mg PO QAM 11/26/18 11/26/18 History saw palmetto 1,000 mg PO BID 11/26/18 11/26/18 History sulfasalazine 500 mg PO BID 11/26/18 11/26/18 History tramadol 50 - 100 mg PO Q4H PRN 11/26/18 11/26/18 History vitamin B complex 1 tab PO QPM 11/26/18 11/26/18 History Past Med/Surg History Medical History Arthritis Crohn's disease Surgical History S/P TKR (total knee replacement) Social History Preferred Language: Indonesian Current Living Situation: Spouse Feels Safe at Home: Yes Smoking Status: Former smoker Review of Systems Review of Systems: All systems reviewed & are unremarkable except as noted in HPI & below Constitutional: no fever, no chills and no sweats Respiratory: no cough and no dyspnea Cardiovascular: no chest pain, no dyspnea and no orthopnea Gastrointestinal: no abdominal pain, no nausea and no vomiting Musculoskeletal: as per Subjective / HPI Physical Exam Physical Exam: Ht: 69 inches wt: 258lb BP: 128/82 Pulse: 80 Constitutional: WD/WN, vitals as above no acute distress Respiratory: normal respiratory effort, lungs clear to auscultation no respiratory distress, no labored breathing and does not use accessory muscles Cardiovascular: RRR, no murmur, no edema Gastrointestinal (Abdomen): normal bowel sounds, soft, nontender, no hepatosplenomegaly Musculoskeletal: Right Shoulder Physical Exam no ecchymosis, negative crepitation with motion, tenderness anterior aspect shoulder, subacromial space and AC joint. Belly press - Positive. Jacobs Positive. Cross Body Positive. Neer's - positive. Strength tests - External rotation 4/5, Supraspinatus 4/5 no atrophy, Right shoulder ROM Active ROM - Flexion: 120 degrees, Ext Rot 90 Flex: 30 degrees, Abduction: 45 degrees, Factors: pain, Description: Pain with ROM. Passive ROM - Factors: pain. Neurovascular- Radial pulse palpable, radial/median/ulnar nerves intact. hand/wrist/elbow- full painless ROM. Results & Data Diagnostic Findings right shoulder MRI confirms DJD AC joint as well as glenohumeral joint, full thickness tear of the supraspinatus and infraspinatus.
--- NOTE | 2019-05-04 11:03 | Anesthesiology Consultation ---
Date of Service May 04, 2019 Assessment & Plan (1) Encounter for pre-operative examination: Chart Review Chart Review: Acceptable Risk for Surgery and Patient NOT seen in Pre Admission Testing Consults Requested none History Surgery Operation Date: 05/05/19 14:00 Proposed Procedures p Right Shoulder Arthroscopy with Subacromial Decompression, Distal Clavicle Excision, Rotator Cuff Repair - Jamey Rothman DO Height/Weight Height: 5 ft 9 in Weight: 110.677 kg Allergies Allergy/AdvReac Type Severity Reaction Status Date / Time azathioprine Allergy Intermediate Neuro Verified 05/04/19 10:17 changes Medications Home Medications Medication Instructions Recorded Confirmed Last Taken [place]'s wort 300 mg PO DAILY 11/26/18 05/04/19 Unknown acetaminophen 1,000 mg PO Q8H PRN 11/26/18 05/04/19 Unknown calcium carbonate [Calcium 600] 1,200 mg PO DAILY 11/26/18 05/04/19 Unknown cholecalciferol (vitamin D3) 1,000 units PO BID 11/26/18 05/04/19 Unknown [Vitamin D3] cyanocobalamin (vitamin B-12) 5,000 mcg IM WK 11/26/18 05/04/19 Unknown cyanocobalamin (vitamin B-12) 1,000 mcg PO DAILY 11/26/18 05/04/19 Unknown [Vitamin B-12] cyclobenzaprine 10 mg PO TID PRN 11/26/18 05/04/19 Unknown ergocalciferol (vitamin D2) 50,000 unit PO WK 11/26/18 05/04/19 Unknown folic acid 800 mcg PO DAILY 11/26/18 05/04/19 Unknown ginkgo biloba 1,000 mg PO BID 11/26/18 05/04/19 Unknown methotrexate sodium 12.5 mg PO WK 11/26/18 05/04/19 Unknown multivitamin 1 tab PO DAILY 11/26/18 05/04/19 Unknown omega 5-beb-lhp-fish oil [Fish Oil] 1,000 mg PO BID 11/26/18 05/04/19 Unknown omeprazole 40 mg PO QAM 11/26/18 05/04/19 Unknown saw palmetto 1,000 mg PO BID 11/26/18 05/04/19 Unknown sulfasalazine 500 mg PO BID 11/26/18 05/04/19 Unknown tramadol 50 - 100 mg PO Q4H PRN 11/26/18 05/04/19 Unknown vitamin B complex 1 tab PO QPM 11/26/18 05/04/19 Unknown Past Medical History Medical History Crohn's disease Anemia BPH (benign prostatic hyperplasia) Bipolar disorder GERD (gastroesophageal reflux disease) Hypertension Osteoarthritis Rheumatoid arthritis Past Family History Family History Mother Family history of diabetes mellitus Father Family history of diabetes mellitus Past Surgical History Surgical History H/O resection of small bowel History of appendectomy History of colonoscopy History of cystoscopy History of esophagogastroduodenoscopy (EGD) History of herniorrhaphy UMBILICAL HERNIA History of tonsillectomy and adenoidectomy History of tooth extraction History of total knee replacement RT Hx of vasectomy Social History Smoking Status: Former smoker tobacco type: cigarettes Do You Dip or Chew Tobacco: No Smoking End Date: 7 YEARS AGO Hx Alcohol Use: No Hx Substance Use: No substance use type: does not use Testing Laboratory Results Laboratory Tests 05/03/19 17:22 WBC 6.41 Hgb 12.9 L Hct 39.1 L Plt Count 236 Electrocardiogram Date: 05/03/19 NSR with sinus arrhythmia. Normal ECG. HR 81 Chest X-Ray Date: 05/03/19 TWO VIEW CHEST CLINICAL HISTORY: Preoperative examination. FINDINGS: PA and lateral chest radiographs are compared to study dated 11/26/2018. The heart is enlarged. The pulmonary vasculature is noncongested. The lungs and pleural spaces are clear. There is no pneumothorax. The skeletal structures are osteopenic. The bony thorax appears intact. IMPRESSION: Cardiomegaly with no active disease in the chest.
[~2019-05-05 10:59] MED LIST changes: -ACET-24 PO; -ASPI-320 PO; -AZAT50TA17 PO; -B-CO-25 PO; -CALC-51 PO; -CHOL1CAP57 PO; -CLB200 PO; -CLC100 PO; -CYAN100020 PO; +DEXAMETHASONE SOD INJ 4 MG/ML VIAL ONE; +EPINEPHrine INJ 1 MG/ML AMP ONE; -FOLIC ACID PO; +LR 15ML/HR IV SCH; -MULT-506 PO; -ONDA-170 PO; -PRLSR20 PO; +ROPIVACAINE 0.5% 5 MG/ML 30 ML VIAL ONE; -RXC5 PO; -SULF500T36 PO
[2019-05-05] MEDS ORDERED: MIDAZOLAM HCL 1 MG/ML 2ML VIAL ONE (11:44)
[2019-05-05] MEDS ORDERED: ONDANSETRON INJ 2 MG/ML 2 ML VIAL ONE (11:44)
[2019-05-05] MEDS ORDERED: fentaNYL citrate 100 MCG/2 ML VIAL ONE (11:44)
[2019-05-05] MEDS ORDERED: LIDOCAINE HCL 2% 2 ML VIAL/AMP(20MG/ML) INFIL ONE (11:44)
[2019-05-05] MEDS ORDERED: DEXAMETHASONE SOD INJ 4 MG/ML VIAL ONE (11:44)
[2019-05-05] MEDS ORDERED: PROPOFOL IV EMULSION 10 MG/ML 20 ML VIAL IV ONE (11:44)
--- NOTE | 2019-05-05 12:24 | History & Physical Bridge Note ---
Date of Service May 05, 2019 History & Physical Bridge Note I have examined the patient, reviewed the History & Physical and in the interval since the performance of the History & Physical I have noted the following changes of clinical significance: no changes noted
[2019-05-05] MEDS ORDERED: EpINEphrine HCL INJ 1 MG/ML 1ML SYRINGE ONE (13:11)
[2019-05-05] MEDS ORDERED: PROMETHAZINE HCL 12.5 MG in SODIUM CHLORIDE 0.9% 50 ML IV PRN (13:54)
[2019-05-05] MEDS ORDERED: ePHEDrine sulfate 50 MG/ML AMP IV PRN (13:54)
[2019-05-05] MEDS ORDERED: ONDANSETRON INJ 2 MG/ML 2 ML VIAL IV PRN ×3 (13:54→17:36)
[2019-05-05] MEDS ORDERED: NALOXONE HCL 0.4 MG/1 ML VIAL/CARP IV PRN ×2 (13:54→17:36)
[2019-05-05] MEDS ORDERED: ATROPINE SULFATE 0.1 MG/ML 10ML SYR IV PRN (13:54)
[2019-05-05] MEDS ORDERED: HYDROmorphone INJ 1 MG/ML SYRINGE IV PRN (13:54)
[2019-05-05] MEDS ORDERED: FLUMAZENIL 0.1 MG/1 ML 10 ML VIAL IV PRN (13:54)
[2019-05-05] MEDS ORDERED: LABETALOL HCL IV 5 MG/ML 20ML IV PRN (13:54)
[2019-05-05] MEDS ORDERED: CEFAZOLIN 250 MG/ML 1 GM VIAL ONE (14:28)
[2019-05-05] MEDS ORDERED: SUCCINYLCHOLINE 100MG/5ML SYR ONE (14:29)
[2019-05-05] MEDS ORDERED: LARYING-O-JET KIT (LTA) ONE (14:29)
[2019-05-05] MEDS ORDERED: ROCURONIUM BROMIDE 10 MG/ML 5 ML VIAL ONE (14:29)
[2019-05-05] MEDS ORDERED: GLYCOPYRROLATE 0.2 MG/ML VIAL ONE (14:47)
[2019-05-05] MEDS ORDERED: NEOSTIGMINE METHYLSULFATE 5 MG/5 ML SYR ONE (14:47)
--- NOTE | 2019-05-05 14:52 | Operative Report ---
Post Operative Report Pre & Post Diagnosis Operation Date: 05/05/19 14:00 Pre-Op Diagnosis: Right Shoulder Subacromial Joint Arthritis Post-Op Diagnosis: Right Shoulder Subacromial Joint Arthritis Procedure Operation Date: 05/05/19 14:00 Actual Procedures p Right Shoulder Arthroscopy with Subacromial Decompression,acromioplasty, removal of loose bodies, synovectomy debridement of articular side and bursal side cuff tears (Right) - Jamey Rothman DO Surgeon Jamey Rothman DO Fruit Sprayer Carter DUNNE Estimated Blood Loss 5 Findings Consistent with Post-Op Diagnosis Patient presents with glenohumeral DJD articular and bursal side cuff tears market synovitis 30% tearing bicep tendon impingement syndrome subacromial impingement Specimens None Drains None Complications none Disposition Accompanied Patient To Recovery: No Disposition: Recovery Room Indications Patient patient presents with complaints of ongoing pain about the right shoulder is got some adhesive capsulitis as well as a synovitis intraoperative finding of the intra-articular bursal side partial-thickness cuff there is no full-thickness cuff tear was noted the patient is failed attempted conservative management physical therapy injections anti-inflammatories relative rest presents today for endoscopic evaluation subacromial decompression from a large anterior osteophyte in the subacromial space Description of Procedure After proper notification the patient the right upper extremity socially prepped draped usual fashion first laparoscopic examination beginning in the region of the glenohumeral joint revealed to be evidence of market glenohumeral joint DJD market synovitis involving the anterior superior posterior portions of the capsule inferior portion of the capsule was all markedly synovitic as well there were loose bodies measuring 1 x 1 cm x 2 that were removed a synovectomy was performed the articular portion of the rotator cuff was visualized and there is evidence of some partial-thickness tearing which were debrided to stable margin there is a 30% tear involving the biceps tendon with fraying and market inflammation these were all debrided to stable margins subacromial decompression was performed anterior inferior acromioplasty performed converting a type III with large osteophyte to a type I subacromial decompression having been completed form the bursal surface of the cuff was evaluated there was bursal areas of flap tearing and fraying but no full-thickness tear was noted this was all debrided back to stable margin the AC joint was inspected and was otherwise in satisfactory condition the wound was irrigated with copious muscle sterile saline solution operative matter region moved meticulous hemostasis having been performed and the skin was closed with 4-0 nylon sterile compressive dressings placed patient was taken to recovery room in stable condition operative report dictated by Stephan please note Carter DUNNE was necessary for prepping draping retraction arm management and was necessary for the case I attest to the content of the Intraoperative Record and any orders documented therein. Any exceptions are noted below.
[2019-05-05] MEDS ORDERED: HYDROmorphone INJ 0.5 MG/0.5 ML SYR IV PRN ×2 (15:02→17:36)
[2019-05-05] MEDS ORDERED: OXYCODONE HCL IR 5 MG TAB (IMMEDIATE RELEASE) PO PRN ×3 (15:02→17:36)
[2019-05-05] MEDS ORDERED: ACETAMINOPHEN 325 MG TAB PO PRN (15:02)
--- NOTE | 2019-05-05 15:50 | Anesthesiology Progress Note ---
Date of Service May 05, 2019 Anesthesia Post Procedure Vital Signs Vital Signs: Temp Pulse Pulse Resp BP Pulse Ox 05/05/19 15:40 36.3 C L 104 H 18 138/94 93 05/05/19 15:30 95 H 18 146/92 H 94 05/05/19 15:20 100 H 20 140/96 96 05/05/19 15:10 104 H 22 139/94 98 05/05/19 15:02 36.8 C 103 H 21 149/96 H 97 05/05/19 12:30 36.4 C L 76 20 145/88 H 95 Transfer of Care Handoff Completed per policy Notes Mental Status: alert / awake / arousable Patient Amnestic to Procedure: Yes Nausea / Vomiting: adequately controlled Pain: adequately controlled Airway Patency, RR, SpO2: stable & adequate BP & HR: stable & adequate Hydration State: stable & adequate Neuraxial Anesthesia: was administered and sensory block is resolving Anesthetic Complications: no major complications apparent
[2019-05-05] MEDS ORDERED: SODIUM CHLORIDE 0.9% 1000ML 1,000 ML IV SCH (17:36)
[2019-05-05] MEDS ORDERED: MAGNESIUM HYDROXIDE SUSP 30 ML UDC PO PRN (17:36)
[2019-05-05] MEDS ORDERED: METOPROLOL SUCC 25MG EXT REL TAB PO ONE (19:30)
[2019-05-05] MEDS: CEFAZOLIN 2000MG 2,000 MG/15 ML SYR IV SCH (20:33)
[2019-05-05] MEDS: CHOLECALCIFEROL 1,000 UNITS TAB PO SCH (20:36)
[2019-05-05] MEDS: DOCUSATE SODIUM 100 MG CAP PO SCH (20:37)
[2019-05-05] MEDS: sulfaSALAzine 500 MG TABLET PO SCH (20:37)
[2019-05-05] MEDS: ACETAMINOPHEN 500 MG TAB PO SCH (21:33)
[2019-05-06] MEDS: CEFAZOLIN 2000MG 2,000 MG/15 ML SYR IV SCH (06:17)
[2019-05-06] MEDS: ACETAMINOPHEN 500 MG TAB PO SCH (06:18)
[2019-05-06] MEDS ORDERED: COUGH DROP (SUGAR FREE) LOZ 24 LOZ/1 BOX BUCCAL ONE (06:29)
--- NOTE | 2019-05-06 08:42 | Orthopedic Progress Note ---
Date of Service May 06, 2019 Assessment & Plan (1) AC (acromioclavicular) arthritis: Postop day 1 status post right shoulder arthroscopy. Vital signs remaining stable and latest vitals show room air O2 sats at 95. Patient is without complaints and is ready to go home. Plan for discharge to home this morning. Subjective Postop day 1 status post right shoulder arthroscopy with subacromial decompression and debridement. Patient was admitted observation last night due to somnolence and at times dropping his O2 sats below 90. Patient's was uncomfortable taking him home without state and stated that he normally wakes up pretty fast after surgeries. At the time patient was somewhat groggy but answering questions appropriately. This morning he is awake and alert and has no complaints pain is controlled and states he is ready to go home. Physical Exam Physical Exam: Dressings are intact. Her fascia is intact. He has good hand strength at this time and sensation is intact in all fingers. Sling is in place. Results & Data Vital Signs (Past 12 Hours) Vital Signs Temp Pulse Resp BP Pulse Ox 05/06/19 07:40 36.7 C 73 18 133/87 95 05/06/19 03:10 37.0 C 95 H 18 143/97 H 95 05/05/19 22:30 36.3 C L 103 H 16 133/86 96 05/05/19 21:30 37.0 C 111 H 16 131/90 96
--- NOTE | 2019-05-06 08:44 | Anesthesiology Progress Note ---
Date of Service May 06, 2019 Anesthesia Post Procedure Vital Signs Vital Signs: Temp Pulse Pulse Resp BP Pulse Ox 05/06/19 07:40 36.7 C 73 18 133/87 95 05/06/19 03:10 37.0 C 95 H 18 143/97 H 95 05/05/19 22:30 36.3 C L 103 H 16 133/86 96 05/05/19 21:30 37.0 C 111 H 16 131/90 96 05/05/19 20:32 36.6 C 109 H 16 142/90 H 96 05/05/19 19:58 36.7 C 107 H 16 148/77 H 96 05/05/19 19:25 36.8 C 115 H 16 182/111 H 94 05/05/19 19:03 123 H 16 172/108 H 94 05/05/19 18:20 36.8 C 104 H 18 142/102 H 93 05/05/19 17:20 36.8 C 94 H 18 148/95 H 94 05/05/19 16:49 37 C 93 H 18 135/92 95 05/05/19 16:34 91 05/05/19 16:33 86 L 05/05/19 16:26 89 L 05/05/19 16:20 36.3 C L 95 H 16 139/94 92 05/05/19 15:50 36.3 C L 94 H 16 139/95 93 05/05/19 15:40 36.3 C L 104 H 18 138/94 93 05/05/19 15:30 95 H 18 146/92 H 94 05/05/19 15:20 100 H 20 140/96 96 05/05/19 15:10 104 H 22 139/94 98 05/05/19 15:02 36.8 C 103 H 21 149/96 H 97 05/05/19 12:30 36.4 C L 76 20 145/88 H 95 Notes Mental Status: alert / awake / arousable and participated in evaluation Patient Amnestic to Procedure: Yes Nausea / Vomiting: adequately controlled Pain: adequately controlled Airway Patency, RR, SpO2: stable & adequate BP & HR: stable & adequate Hydration State: stable & adequate Anesthetic Complications: no major complications apparent and Pt Satisfied with anesthetic care
[2019-05-06] MEDS: DOCUSATE SODIUM 100 MG CAP PO SCH (08:46)
[2019-05-06] MEDS: sulfaSALAzine 500 MG TABLET PO SCH (08:47)
[2019-05-06] MEDS: CHOLECALCIFEROL 1,000 UNITS TAB PO SCH (08:48)
[2019-05-06] MEDS ORDERED: ASPIRIN 81 MG ECTAB PO SCH (09:00)
[2019-05-06] MEDS ORDERED: METOPROLOL SUCC 25MG EXT REL TAB PO SCH ×2 (09:00)
[2019-05-06] MEDS ORDERED: CYANOCOBALAMIN 500 MCG TABLET (VITAMIN B-12) PO SCH (09:00)
[2019-05-06] MEDS ORDERED: INFLUENZA VIRUS QUAD VACCINE 0.5 ML SYR IM ONE (09:00)
[2019-05-06] MEDS ORDERED: INFLUENZA ADMINISTRATION CHARGE ONE (09:00)
[2019-05-06] MEDS ORDERED: PANTOprazole 40 MG TAB PO SCH (09:00)
[2019-05-06] MEDS ORDERED: MULTIVITAMIN TAB PO SCH (09:00)
[2019-05-06] MEDS ORDERED: PNEUMOCOCCAL ADMINISTRATION CHARGE ONE (10:45)
[2019-05-06] MEDS ORDERED: PNEUMOCOCCAL POLYSACCHARIDES 25 MCG/0.5 ML VIAL/SYR IM ONE (10:45)
[2019-05-10] MEDS ORDERED: ERGOCALCIFEROL 50,000 UNITS CAP PO SCH (09:00)
--- NOTE | 2019-05-10 11:23 | Discharge Summary ---
Date of Service May 10, 2019 Admission HPI Per Admitting Provider Mr Pham is a 54 year old male who is here for a follow up of right shoulder pain, presents for pre-op evaluation prior to a right shoulder scope, subacromial decompression, distal clavicle excision and rotator cuff repair at [facility]. He presents with pain and weakness on the right side. The symptoms occur intermittently. Currently the patient states that the symptoms are moderate- severe. The pain is described as aching and throbbing. The symptoms occur intermittently. The symptoms are aggravated by daily activities, driving, lifting, pulling, pushing, repetitive activities and sleeping in any position. In addition to shoulder pain, he is also experiencing decreased mobility, difficulty initiating sleep, nocturnal awakening, joint tenderness and weakness, MRI completed showing tears involving supraspinatus and infraspinatus. Admission Exam Per Admitting Provider Physical Exam Physical Exam: Ht: 69 inches wt: 258lb BP: 128/82 Pulse: 80 Constitutional: WD/WN, vitals as above no acute distress Respiratory: normal respiratory effort, lungs clear to auscultation no respiratory distress, no labored breathing and does not use accessory muscles Cardiovascular: RRR, no murmur, no edema Gastrointestinal (Abdomen): normal bowel sounds, soft, nontender, no hepatosplenomegaly Musculoskeletal: Right Shoulder Physical Exam no ecchymosis, negative crepitation with motion, tenderness anterior aspect shoulder, subacromial space and AC joint. Belly press - Positive. Jacobs Positive. Cross Body Positive. Neer's - positive. Strength tests - External rotation 4/5, Supraspinatus 4/5 no atrophy, Right shoulder ROM Active ROM - Flexion: 120 degrees, Ext Rot 90 Flex: 30 degrees, Abduction: 45 degrees, Factors: pain, Description: Pain with ROM. Passive ROM - Factors: pain. Neurovascular- Radial pulse palpable, radial/median/ulnar nerves intact. hand/wrist/elbow- full painless ROM. Principal Diagnosis Right Shoulder Subacromial Joint Arthritis Discharge Exam Dressings are intact. Her fascia is intact. He has good hand strength at this time and sensation is intact in all fingers. Sling is in place Discharge Data Allergies Allergy/AdvReac Type Severity Reaction Status Date / Time azathioprine Allergy Intermediate Neuro Verified 05/05/19 12:19 changes Procedures Performed Operation Date: 05/05/19 14:00 Actual Procedures p Right Shoulder Arthroscopy with Subacromial Decompression,acromioplasty, removal of loose bodies, synovectomy(Right) - Jamey Rothman DO Ordered Studies 05/05/19 05:00 US - OR guided needle placemen Routine Hospital Course (1) AC (acromioclavicular) arthritis: Patient was brought in to the hospital for the above-noted surgery. He underwent the the right shoulder arthroscopy with subacromial decompression. Postoperatively in the SDA unit, the patient was taking longer to wake up and had dropped his O2 saturation level down to 86 and was put on O2 per nasal cannu la. He fluctuated between the high 80s and low 90s for his O2 sats. His was uncomfortable with taking him home and he was admitted for observation overnight. By his first postoperative day following morning, he was awake and alert without complaints. He no longer needed O2 per nasal cannula. He denies any shortness of breath, chest pain, lightheadedness. The latest vital signs showed O2 saturation of 95 on room air, BP 133/87, pulse 73, respirations 18. Patient stated that he was ready to be discharged. Total Time Total Time Spent Total Time Spent (In Minutes): 5 Discharge Plan Discharge Items Patient Disposition: Home - Self-Care Reason For Visit: Right Shoulder Subacromial Joint Arthritis Discharge Diagnosis: Right Shoulder Djd; Subacromial Joint Djd Activity: Per Instructions section Non-emergency contact: Surgeon Call non-emergency contact if: your pain is not controlled, your temperature is above 101.5, your wound has increased redness and your wound has increased drainage Follow-up/Referrals: Jamey Rothman DO [Surgeon] - Dejon Lang DO [Primary Care Provider] - Addtl Attending Provider Instructions: [facility] DISCHARGE INSTRUCTIONS: SHOULDER ARTHROSCOPY without Distal Clavicle Excision SELF CARE INSTRUCTIONS AFTER: A. You are allowed to use your arm actively as comfort allows. Recommend NOT doing repetitive overhead activity or heavy lifting. B. You should start Physical Therapy within 1-3 days from your surgery. You will be provided a prescription with specific restrictions, if needed, at time of discharge. C. You can discontinue the sling as comfort allows within one to two days after surgery. A. At 48 hours post-operatively, you may change your dressing. . (Leave white steri-strips intact if present). Use band-aids and change daily. You are allowed to shower at this time and get the incision area wet, but DO NOT soak or submerge incision area in water. (No baths, swimming pools, hot tubs) B. Do NOT apply soap or any ointment/lotions directly over incision. C. You may use ice as needed to operative shoulder SPECIAL CARE INSTRUCTIONS: VERY IMPORTANT TO READ AND REVIEW A. There are a few signs you need to watch for after you are home. Call [facility] at [phone] if you experience any of the following: a. Increased severe shoulder pain. Some pain is expected especially when you exercise b. Increased swelling in your shoulder or arm; pain or swelling in either upper extremity. (Note: swelling and stiffness is normal and expected for several weeks post op, depending on type of shoulder surgery you had). c. Any fluid or drainage from the incision; redness of the incision. d. Shortness of breath or chest pain. B. Please call [facility] at [phone] if you have any questions or concerns about your operation or recovery. C. Call your physician if: a. Temperature is greater than 101 degrees (F). b. Pain is not relieved by prescribed pain medications. c. Increase drainage or redness from incision. d. Unanswered questions or concerns. D. Pain Medication: a. You will be prescribed pain medication upon discharge that should last till your first post-operative appointment. b. You may also take Advil or Ibuprofen between medication doses if you do not have any contraindication to taking them. c. You may also take Advil or Ibuprofen in place of your pain medication if the pain is tolerable. d. If you experience nausea and/or skin rash, discontinue this medication and contact our office for an alternative medication. e. Caution- narcotic pain medication can cause constipation. FOLLOW UP VISIT: Please call [facility] at [phone] to schedule a follow u p appointment 10-14 days from your surgery date. Pending Studies at Discharge: No Stand-Alone Forms: My [employer], Opioid Pain Management Medications and DC Order Prescriptions: New oxycodone 5 mg Tablet 5 mg PO Q4H PRN (Reason: pain) Qty: 30 RF: 0 Continued multivitamin Tablet 1 tab PO DAILY RF: 0 sulfasalazine 500 mg tablet 500 mg PO BID RF: 0 cyanocobalamin (vitamin B-12) [Vitamin B-12] 1,000 mcg Tablet 1,000 mcg PO DAILY RF: 0 acetaminophen 500 mg Tablet 1,000 mg PO Q8H PRN (Reason: Pain) RF: 0 calcium carbonate [Calcium 600] 600 mg calcium (1,500 mg) Tablet 1,200 mg PO DAILY RF: 0 methotrexate sodium 2.5 mg tablet 12.5 mg PO WK RF: 0 cyanocobalamin (vitamin B-12) 1,000 mcg/mL Solution 5,000 mcg IM WK RF: 0 vitamin B complex Tablet 1 tab PO QPM RF: 0 ergocalciferol (vitamin D2) 50,000 unit Capsule 50,000 unit PO WK RF: 0 folic acid 800 mcg Tablet 800 mcg PO DAILY RF: 0 cholecalciferol (vitamin D3) [Vitamin D3] 1,000 unit Capsule 1,000 units PO BID RF: 0 omeprazole 40 mg capsule,delayed release(DR/EC) 40 mg PO QAM RF: 0 saw palmetto 500 mg Capsule 1,000 mg PO BID RF: 0 [place]'s wort 300 mg Capsule 300 mg PO DAILY RF: 0 ginkgo biloba 500 mg Capsule 1,000 mg PO BID RF: 0 omega 2-fvi-rqq-fish oil [Fish Oil] 1,000 mg (120 mg-180 mg) Capsule 1,000 mg PO BID RF: 0 metoprolol succinate 25 mg Tablet Extended Release 24 Hr 25 mg PO DAILY RF: 0 Discontinued tramadol 50 mg Tablet 50 - 100 mg PO Q4H PRN (Reason: Pain) RF: 0 Discharge Orders: Discharge Order (Routine); Ordered 05/06/19 Ordered By: Carter Srivastava/Other Patient Handouts: Surgery Prevent DVT After Admission Data Admit Date/Time: 05/05/19 17:36 Attending Provider: Jamey Rothman Admit Provider: Jamey Rothman Primary Care Provider: Dejon Lang Other Interventions: Discharge Summary Assessment (RN) Last Done: 05/06/19 10:11 DC Date/Time DO NOT enter until pt leaves facility: 05/06/19 13:05
== END 2019-05-06 13:05 | disposition home or self-care (01) ==
LOC: ASU 10:59 → 3E 10:59
DX: I10 Essential (primary) hypertension; Z87.891 Personal history of nicotine dependence; Z79.899 Other long term (current) drug therapy; M13.811 Other specified arthritis, right shoulder; N40.0 Benign prostatic hyperplasia without lower urinary tract symptoms; M19.90 Unspecified osteoarthritis, unspecified site; M75.01 Adhesive capsulitis of right shoulder; M75.101 Unspecified rotator cuff tear or rupture of right shoulder, not specified as traumatic

== ENCOUNTER 2020-01-05 10:58 | Observation (INO) ==
--- NOTE | 2020-01-03 08:43 | History & Physical Report ---
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 The risks and benefits have been discussed including, but not limited to, risk of infection, nerve injury, stiffness, loss of motion, failure to improve, etc. Reasonable outcomes and options of treatment were discussed. An explanation of appropriate alternatives to the procedure that may be advantageous were discussed and their risks and benefits, as well as the risks and benefits of not proceeding with treatment. I offered to answer any additional inquiries concerning the treatment involved. All the patient's questions were answered. The patient is agreeable, understanding of the treatment plan and alternatives, and wishes to proceed with the treatment plan. will plan on d/c home with HHPT, ASA 81mg po bid. History of Present Illness Chief Complaint: Right knee pain Primary Care Provider: Dejon Lang DO Ramon is a 54 year old male who complains of Right knee pain, presents for pre- op evaluation prior to a Right knee arthrotomy medial retinaculum repair with possible poly exchange at [facility]. Tristen sustained a fall onto his right knee approximately 6-8 weeks ago. he had x-ray showing lateral tilt to his patella as well as a defect within the medial retinaculum. He complains of pain, decreased range of motion, and weakness in his right knee. Currently the patient states that the symptoms are moderate-severe. The pain is described as aching, sharp and throbbing. The symptoms occur continuously. The symptoms are aggravated by ascending stairs, daily activities, first steps while awake walking. He is currently using a brace and occasionally a cane when ambulating. Allergies Allergy/AdvReac Type Severity Reaction Status Date / Time azathioprine Allergy Intermediate Neuro Verified 06/15/19 05:42 changes Home Medications Home Medications Medication Instructions Recorded Confirmed Type [place]'s wort 300 mg PO QAM 11/26/18 08/01/19 History acetaminophen 1,000 mg PO Q8H PRN 11/26/18 08/01/19 History calcium carbonate [Calcium 600] 1,200 mg PO QAM 11/26/18 08/01/19 History cholecalciferol (vitamin D3) 1,000 units PO BID 11/26/18 08/01/19 History [Vitamin D3] cyanocobalamin (vitamin B-12) 5,000 mcg IM WK 11/26/18 08/01/19 History cyanocobalamin (vitamin B-12) 1,000 mcg PO QAM 11/26/18 08/01/19 History [Vitamin B-12] ergocalciferol (vitamin D2) 50,000 unit PO WK 11/26/18 08/01/19 History folic acid 800 mcg PO QAM 11/26/18 08/01/19 History ginkgo biloba 1,000 mg PO BID 11/26/18 08/01/19 History methotrexate sodium 12.5 mg PO .Friday11/26/18 08/01/19 History multivitamin 1 tab PO QAM 11/26/18 08/01/19 History omega 5-rfw-mcf-fish oil [Fish Oil] 1,000 mg PO BID 11/26/18 08/01/19 History omeprazole 40 mg PO QAM 11/26/18 08/01/19 History saw palmetto 1,000 mg PO BID 11/26/18 08/01/19 History sulfasalazine [Azulfidine] 500 mg PO BID 11/26/18 08/01/19 History vitamin B complex 1 tab PO QPM 11/26/18 08/01/19 History metoprolol succinate 25 mg PO QAM 05/05/19 08/01/19 History oxycodone 5 mg PO Q6H PRN #30 tab 06/15/19 08/01/19 Rx Past Med/Surg History Medical History Anemia Bipolar disorder BPH (benign prostatic hyperplasia) Crohn's disease (Acute) GERD (gastroesophageal reflux disease) Hx of tuberculosis FOUND WHEN TESTED FOR HUMIRA AND POSITIVE AND HAD MEDICINE TREATMENT AND NO FURTHER PROBLEMS Hypertension Osteoarthritis Rheumatoid arthritis Surgical History H/O resection of small bowel History of appendectomy History of arthroscopy of right shoulder History of colonoscopy History of cystoscopy History of esophagogastroduodenoscopy (EGD) History of herniorrhaphy UMBILICAL HERNIA History of tonsillectomy and adenoidectomy History of tooth extraction History of total knee replacement RT Hx of vasectomy Family History Mother Family history of diabetes mellitus Father Family history of diabetes mellitus Social History Preferred Language: Slovak Communication Ability: Effective Shift Engineer Required: No Beliefs That Will Affect Care: None marital status: Current Living Situation: Spouse Feels Safe at Home: Yes Smoking Status: Never smoker Tobacco Type: cigarettes ; Second Hand Exposure: No ; Hx Alcohol Use: No Hx Substance Use: No Review of Systems Review of Systems: All systems reviewed & are unremarkable except as noted in HPI & below Constitutional: no fever, no chills and no sweats Respiratory: no cough and no dyspnea Cardiovascular: no chest pain, no dyspnea and no orthopnea Gastrointestinal: no abdominal pain, no nausea and no vomiting Musculoskeletal: as per Subjective / HPI Physical Exam Physical Exam: Ht: 5ft 9in Wt: 244lb BP: 132/82 Constitutional: WD/WN, vitals as above no acute distress Respiratory: normal respiratory effort, lungs clear to auscultation no respiratory distress, no labored breathing and does not use accessory muscles Cardiovascular: RRR, no murmur, no edema Gastrointestinal (Abdomen): normal bowel sounds, soft, nontender, no hepatosplenomegaly Musculoskeletal: Knee: + knee abnormal to inspection (Right knee), + effusion (+1 effusion), + surgical incision (well healed portals) and + limited ROM of knee (ROM 0/3/110); no deformity, no skin erythema, no ecchymosis, no crepitation with knee ROM, no joint line tenderness (medial joint line), no valgus laxity and no varus laxity lateral tilt to patella, palpable defect present medial retinaculum. Results & Data Results & Data ([facility]) Diagnostic Findings Radiographs reveal a cemented total knee replacement arthroplasty in acceptable position and alignment. No evidence of loosening or loss of fixation is noted. Patella is tracking laterally indicating torn medial retinaculum. ASSESSMENT: status post cemented posterior stabilized total knee replacement arthroplasty with lateral tracking of his patella.
--- NOTE | 2020-01-04 09:28 | Anesthesiology Consultation ---
Date of Service January 04, 2020 Assessment & Plan (1) Encounter for pre-operative examination: Chart Review Chart Review: Acceptable Risk for Surgery and Patient NOT seen in Pre Admission Testing Per nursing assessment 01/04/20, pt resides in [facility]. No known contact with PUIs or Covid positive people. No history of Covid testing. Nurse did note cough during phone interview which patient states his chronic and stable. No SOB or fever. Pt will need assessed AM of surgery. Did discuss with Dr. Emery- recommended evaluation AM of surgery to ensure patient appropriate to undergo surgery. Left shoulder arthroscopy, RCR, acromioplasty 06/15/19= Done under [place]. Grade 2 view with Glidescope #4 and ETT 8.0. History Surgery Operation Date: 01/05/20 13:30 Proposed Procedures p Right Knee Arthrotomy Medial Retinaculr Repair, Possible Poly Vilma - Jamey Rothman DO Height/Weight Height: 5 ft 9 in Weight: 117.934 kg Allergies Allergy/AdvReac Type Severity Reaction Status Date / Time azathioprine Allergy Intermediate Neuro Verified 01/04/20 07:32 changes Medications Home Medications Medication Instructions Recorded Confirmed Last Taken [place]'s wort 300 mg PO QAM 11/26/18 01/04/20 06/14/19 19:00 acetaminophen 1,000 mg PO Q8H PRN 11/26/18 01/04/20 06/14/19 19:00 calcium carbonate [Calcium 600] 1,200 mg PO QAM 11/26/18 01/04/20 06/14/19 19:00 cholecalciferol (vitamin D3) 1,000 units PO BID 11/26/18 01/04/20 06/14/19 19:00 [Vitamin D3] cyanocobalamin (vitamin B-12) 5,000 mcg IM WK 11/26/18 01/04/20 06/11/19 cyanocobalamin (vitamin B-12) 1,000 mcg PO QAM 11/26/18 01/04/20 06/14/19 06:00 [Vitamin B-12] ergocalciferol (vitamin D2) 50,000 unit PO WK 11/26/18 01/04/20 06/14/19 19:00 folic acid 800 mcg PO QAM 11/26/18 01/04/20 06/14/19 19:00 ginkgo biloba 1,000 mg PO BID 11/26/18 01/04/20 06/14/19 19:00 methotrexate sodium 12.5 mg PO .Friday11/26/18 01/04/20 06/14/19 08:00 multivitamin 1 tab PO QAM 11/26/18 01/04/20 06/14/19 19:00 omega 2-yck-ivr-fish oil [Fish Oil] 1,000 mg PO BID 11/26/18 01/04/20 06/14/19 19:00 omeprazole 40 mg PO QAM 11/26/18 01/04/20 06/14/19 08:00 saw palmetto 1,000 mg PO BID 11/26/18 01/04/20 06/14/19 19:00 sulfasalazine [Azulfidine] 500 mg PO BID 11/26/18 01/04/20 06/14/19 19:00 vitamin B complex 1 tab PO QPM 11/26/18 01/04/20 06/14/19 19:00 metoprolol succinate 25 mg PO QAM 05/05/19 01/04/20 06/14/19 08:00 oxycodone 5 mg PO Q6H PRN #30 tab 06/15/19 01/04/20 Unknown Past Medical History Medical History (Updated 01/04/20 @ 09:19 by Anneliese Back PA-C) Anemia Bipolar disorder BPH (benign prostatic hyperplasia) Crohn's disease GERD (gastroesophageal reflux disease) Hx of tuberculosis FOUND WHEN TESTED FOR HUMIRA (~2006); POSITIVE FOR TB- WAS TREATED AND HAS NO FURTHER PROBLEMS Hypertension Osteoarthritis Rheumatoid arthritis Past Family History Family History Mother Family history of diabetes mellitus Father Family history of diabetes mellitus Other No family history of adverse response to anesthesia Past Surgical History Surgical History H/O resection of small bowel History of appendectomy History of arthroscopy of right shoulder History of colonoscopy History of cystoscopy History of esophagogastroduodenoscopy (EGD) History of herniorrhaphy UMBILICAL HERNIA History of tonsillectomy and adenoidectomy History of tooth extraction History of total knee replacement RT Hx of vasectomy S/P arthroscopy of left shoulder Social History Smoking Status: Never smoker tobacco type: cigarettes Do You Dip or Chew Tobacco: No Hx Alcohol Use: No Hx Substance Use: No substance use type: does not use Testing Laboratory Results Blood Type A Negative 01/04/20 11:21 Antibody Screen NEGATIVE 01/04/20 11:21 Laboratory Tests 01/04/20 01/04/20 01/04/20 11:09 11:09 11:09 WBC 6.60 Hgb 14.2 Hct 42.9 Plt Count 233 PT 11.4 INR 1.1 APTT 27.4 Sodium 139 Potassium 3.8 Chloride 103 Carbon Dioxide 32 BUN 7 Creatinine 0.83 Glucose 87 Hemoglobin A1c 01/04/20 11:09 WBC Hgb Hct Plt Count PT INR APTT Sodium Potassium Chloride Carbon Dioxide BUN Creatinine Glucose Hemoglobin A1c 4.9 UA 01/04/20 = 1+ protein, 1+ blood, 10-30 urine red blood cells Electrocardiogram Date: 01/04/20 Findings: + NSR @ (84) Chest X-Ray Date: 01/04/20 Findings: + NAD
--- NOTE | 2020-01-04 10:06 | Communication Note ---
Date of Service: January 04, 2020 COVID 19 assessment: pt history/travel reviewed. No travel history to note but per nursing assessment on 01/04/2020 patient had cough which he said was chronic and denied any other s/s concerning for covid infection. Will need to assess this DOS to ensure patient is appropriate to undergo surgery on 01/05/2020.
[~2020-01-05 10:58] MED LIST changes: +CEFAZOLIN 2000MG 2,000 MG/15 ML SYR IV SCH; -DEXAMETHASONE SOD INJ 4 MG/ML VIAL ONE; -EPINEPHrine INJ 1 MG/ML AMP ONE; -ROPIVACAINE 0.5% 5 MG/ML 30 ML VIAL ONE; +ROPIVACAINE 0.5% HCL/PF 150 MG, BUPIVACAINE 0.5% MPF 30 ML, EPINEPHrine 0.15 MG, Ketoro... INFIL SCH
--- NOTE | 2020-01-05 12:13 | History & Physical Bridge Note ---
Date of Service January 05, 2020 History & Physical Bridge Note I have examined the patient, reviewed the History & Physical and in the interval since the performance of the History & Physical I have noted the following changes of clinical significance: no changes noted
[2020-01-05] MEDS ORDERED: PROPOFOL IV EMULSION 10 MG/ML 20 ML VIAL IV ONE (12:46)
[2020-01-05] MEDS ORDERED: MIDAZOLAM HCL 1 MG/ML 2ML VIAL ONE (12:46)
[2020-01-05] MEDS ORDERED: ONDANSETRON INJ 2 MG/ML 2 ML VIAL ONE (12:46)
[2020-01-05] MEDS ORDERED: LIDOCAINE HCL 2% 2 ML VIAL/AMP(20MG/ML) INFIL ONE (12:46)
[2020-01-05] MEDS ORDERED: fentaNYL citrate 100 MCG/2 ML VIAL ONE ×2 (12:46→14:49)
[2020-01-05] MEDS ORDERED: ROPIVACAINE 0.5% 5 MG/ML 30 ML VIAL ONE (12:50)
[2020-01-05] MEDS ORDERED: BACITRACIN INJ 50,000 UNIT VIAL ONE (12:52)
[2020-01-05] MEDS ORDERED: ATROPINE SULFATE 0.1 MG/ML 10ML SYR IV PRN (13:11)
[2020-01-05] MEDS ORDERED: LABETALOL HCL IV 5 MG/ML 20ML IV PRN (13:11)
[2020-01-05] MEDS ORDERED: ONDANSETRON INJ 2 MG/ML 2 ML VIAL IV PRN ×2 (13:11→17:08)
[2020-01-05] MEDS ORDERED: KETOROLAC 30 MG/ML VIAL IV PRN (13:11)
[2020-01-05] MEDS ORDERED: SUCCINYLCHOLINE 100MG/5ML SYR IV ONE (14:23)
--- NOTE | 2020-01-05 14:31 | Operative Report ---
Post Operative Report Pre & Post Diagnosis Operation Date: 01/05/20 13:30 Pre-Op Diagnosis: Right Knee Medial Retinacular Tear Post-Op Diagnosis: Right Knee Medial Retinacular Tear I identified the patient and participated in the time-out.: Yes Procedure Operation Date: 01/05/20 13:30 Actual Procedures p Right Knee Arthrotomy Medial Retinaculr Repair(Right) - Jamey Rothman DO Surgeon Jamey Rothman DO Straddle Truck Driver VIBHA Almeida Estimated Blood Loss 5 Findings Consistent with Post-Op Diagnosis Patient presents with a palpable defect the medial retinaculum with lateral subluxation of the patella status post total knee arthroplasty with a hyperflexion injury and a tear of the medial retinacular repair Specimens Culture joint fluid Drains None Anesthesia Type General Regional Complications none Disposition Accompanied Patient To Recovery: No Disposition: Recovery Room Indications Patient presents with a subluxed patella tracking lateralward after tearing medial retinacular repair for medial retinacular repair and revision the polyethylene and ligament attention was then to be excellent in flexion mid flexion and full extension no instability was noted Description of Procedure aftre initiation of general anesthesia the right lower extremity subsequentally prepped draped sterile fashion for surgery this type incision made in the region of the previous incision dissection carried down to subcutaneous tissues the medial parapatellar retinacular incision was opened in the region of the palpable thinning defected area the patella was subsequently evaluated and tracking was in the lateral position excision of hypertrophic scar and a partial synovectomy for as well as lateral release the medial VMO repair with #2 FiberWire patellar tracking was noted to be excellent knee ligament stability was noted be excellent in flexion extension and mid flexion no instability was noted the wound having been irrigated with copious muscle sterile saline solution the mid medial parapatellar retinaculum was closed with #2 Vicryl with #2 FiberWire and #1 Vicryl subcu was closed 2-0 Vicryl skin was closed with skin clips a sterile compressive dressings placed as well as a knee immobilizer patient is taken recovery in stable condition please note VIBHA Almeida was necessary for prepping draping retraction wound closure of deep fascia subcu and skin was necessary for the case I attest to the content of the Intraoperative Record and any orders documented therein. Any exceptions are noted below.
[2020-01-05] MEDS: HYDROmorphone INJ 1 MG/ML SYRINGE IV PRN ×2 (15:30→15:40)
--- NOTE | 2020-01-05 15:57 | Anesthesiology Progress Note ---
Date of Service January 05, 2020 Anesthesia Post Procedure Vital Signs Vital Signs: Temp Pulse Pulse Resp BP Pulse Ox 01/05/20 15:45 94 H 20 130/86 96 01/05/20 15:35 93 H 20 116/87 93 01/05/20 15:25 96 H 20 129/98 98 01/05/20 15:15 98 H 18 117/97 96 01/05/20 15:09 36.7 C 102 H 20 132/88 96 01/05/20 11:37 36.9 C 88 20 149/101 H 94 Pain Intensity Right Knee: Pain Intensity: 2 Transfer of Care Handoff Completed per policy Notes Mental Status: alert / awake / arousable and participated in evaluation Patient Amnestic to Procedure: Yes Nausea / Vomiting: adequately controlled Pain: adequately controlled Airway Patency, RR, SpO2: stable & adequate BP & HR: stable & adequate Hydration State: stable & adequate Anesthetic Complications: no major complications apparent and Pt Satisfied with anesthetic care
--- NOTE | 2020-01-05 17:04 | XRay Report ---
RIGHT KNEE 2 VIEWS History: Right total knee arthroplasty. Degenerative arthritis. Postop. FINDINGS: The patient is status post a right total knee arthroplasty. The hardware is intact. No frac ture or dislocation. Skin don are in place. IMPRESSION: Right total knee arthroplasty. No evidence for hardware complication. ACT 112: Negative or not required by law. Electronically signed by: Alexsander Coombs M.D. 01/05/2020 5:03 PM
[2020-01-05] MEDS ORDERED: MAGNESIUM HYDROXIDE SUSP 30 ML UDC PO PRN (17:08)
[2020-01-05] MEDS ORDERED: HYDROmorphone INJ 1 MG/ML SYRINGE IV PRN (17:08)
[2020-01-05] MEDS ORDERED: bisacodyL 10 MG SUPP PR PRN (17:08)
[2020-01-05] MEDS ORDERED: OXYCODONE HCL IR 5 MG TAB (IMMEDIATE RELEASE) PO PRN (17:08)
[2020-01-05] MEDS ORDERED: NALOXONE HCL 0.4 MG/1 ML VIAL/CARP IV PRN (17:08)
[2020-01-05] MEDS ORDERED: METOCLOPRAMIDE HCL INJ 5 MG/ML 2 ML VIAL IV PRN (17:08)
[2020-01-05] MEDS: SODIUM CHLORIDE 0.9% 1000ML 1,000 ML IV SCH (18:06)
[2020-01-05] MEDS: KETOROLAC 30 MG/ML VIAL IV SCH ×2 (18:11→23:52)
[2020-01-05] MEDS: CEFAZOLIN 2000MG 2,000 MG/15 ML SYR IV SCH (20:40)
[2020-01-05] MEDS: CHOLECALCIFEROL 1,000 UNITS 25 MCG TAB PO SCH (20:41)
[2020-01-05] MEDS: DOCUSATE SODIUM 100 MG CAP PO SCH (20:42)
[2020-01-05] MEDS: sulfaSALAzine 500 MG TABLET PO SCH (20:42)
[2020-01-05] MEDS: ASPIRIN 81 MG ECTAB PO SCH (20:43)
[2020-01-05] MEDS: ACETAMINOPHEN 500 MG TAB PO SCH (20:43)
[2020-01-05] MEDS ORDERED: VITAMIN B COMPLEX TAB PO SCH (21:00)
[2020-01-05] MEDS ORDERED: SENNA 8.6 MG TAB PO SCH (21:00)
[2020-01-05] MEDS ORDERED: CeleBREX 200 MG CAP PO SCH (21:00)
[2020-01-06] MEDS: CEFAZOLIN 2000MG 2,000 MG/15 ML SYR IV SCH (05:20)
[2020-01-06] MEDS: KETOROLAC 30 MG/ML VIAL IV SCH ×2 (05:21→11:32)
[2020-01-06] MEDS: ACETAMINOPHEN 500 MG TAB PO SCH (05:21)
[2020-01-06] MEDS: SODIUM CHLORIDE 0.9% 1000ML 1,000 ML IV SCH (05:21)
[2020-01-06 06:10] LABS: Hematocrit (blood only) 39.7 % (42-52); Hemoglobin 12.5 g/dL (14.0-18.0); Mean Corpuscular Hemoglobin 27.1 pg (25-34); Mean Corpuscular Hgb Conc 31.5 g/dL (32-36); Mean Corpuscular Volume 85.9 fL (80-100); Mean Platelet Volume 9.1 fL (7.4-10.4); Platelet Count 201 K/uL (130-400); RDW Coefficient of Variation 14.1 % (11.5-14.5); RDW Standard Deviation 44.2 fL (36.4-46.3); Red Blood Count 4.62 M/uL (4.7-6.1); White Blood Count 7.55 K/uL (4.8-10.8)
[2020-01-06 06:55] LABS: BUN Creatinine Ratio 12.9 (10-20); Creatinine Clr Calc Pharmacy 126.3 ml/min; Est GFR (African American) 114.5; Est GFR (Non-African American) 98.8
--- NOTE | 2020-01-06 07:11 | Orthopedic Progress Note ---
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: POD #1 s/p right knee medial retinaculum repair pt/ot dvt proph with BUD/SCD/ASA plan for d/c home with OPPT at [facility] locked in extension for ambulation, ROM 0-30 in bed Admission and Anticipated Discharge Date Admission Date: January 05, 2020 Subjective POD #1 s/p Right knee medial retinaculum repair Review of Systems Constitutional: no fever, no chills and no sweats Respiratory: no cough and no dyspnea Cardiovascular: no chest pain and no dyspnea Gastrointestinal: no abdominal pain, no nausea and no vomiting Physical Exam Physical Exam: 01/05/20 14:15 Gram Stain - Pendi ng Knee,Right Aerobic and Anaero bic Culture - Pend ing Vital Signs Temp 37.0 C 01/06/20 03:24 Pulse 84 01/06/20 03:24 Resp 22 01/06/20 03:24 BP 137/89 01/06/20 03:24 Pulse Ox 93 01/06/20 03:24 Intake & Output 01/05/20 01/06/20 01/06/20 18:59 06:59 18:59 Intake Total 1750 / 2900 1150 / 2900 Output Total 255 / 555 300 / 555 Balance 1495 / 2345 850 / 2345 Weight 121.291 kg Intake: IV 300 / 1300 1000 / 1300 Lr 1,000 ml @ 15 mls/hr IV . 300 / 300 Q24H FLORECITA Rx#:[id number] Nss 1000ML 1,0 00 ml @ 100 mls/ 1000 / 1000 hr IV .Q10H SC H Rx#:[id number] IV Perioperative 1450 / 1450 Oral 150 / 150 Output: Urine 250 / 550 300 / 550 Estimated Blood Loss 5 / 5 Constitutional: WD/WN, vitals as above no acute distress Musculoskeletal: Right Leg: NVDI, calf SNT, negative triston sign. DP palpable, able to wiggle toes/ankle movement without difficulty. dressing clean dry and intact. Results & Data ([facility]) Vital Signs (Past 12 Hours) Vital Signs Temp Pulse Pulse Resp BP Pulse Ox 01/06/20 03:24 37.0 C 84 22 137/89 93 01/05/20 23:34 36.8 C 87 20 136/81 93 01/05/20 20:00 36.9 C 90 18 141/92 H 96 Laboratory Results Laboratory Results WBC 7.55 K/uL (4.8-10.8) 01/06/20 05:55 RBC 4.62 M/uL (4.7-6.1) L 01/06/20 05:55 Hgb 12.5 g/dL (14.0-18.0) L 01/06/20 05:55 Hct 39.7 % (42-52) L 01/06/20 05:55 MCV 85.9 fL (80-100) 01/06/20 05:55 MCH 27.1 pg (25-34) 01/06/20 05:55 MCHC 31.5 g/dL (32-36) L 01/06/20 05:55 RDW Std Deviation 44.2 fL (36.4-46.3) 01/06/20 05:55 RDW Coeff of Ale 14.1 % (11.5-14.5) 01/06/20 05:55 Plt Count 201 K/uL (130-400) 01/06/20 05:55 MPV 9.1 fL (7.4-10.4) 01/06/20 05:55 Sodium 138 mmol/L (136-145) 01/06/20 05:55 Potassium mmol/L (3.5-5.1) 01/06/20 05:55 Chloride 105 mmol/L (98-107) 01/06/20 05:55 Carbon Dioxide 30 mmol/L (21-32) 01/06/20 05:55 Anion Gap 3.0 (3-11) 01/06/20 05:55 BUN 11 mg/dl (7-18) D 01/06/20 05:55 Creatinine 0.88 mg/dl (0.6-1.4) 01/06/20 05:55 Est Cr Clr Drug Dosing 126.3 ml/min 01/06/20 05:55 Est GFR ( Amer) 114.5 01/06/20 05:55 Est GFR (Non-Af Amer) 98.8 01/06/20 05:55 BUN/Creatinine Ratio 12.9 (10-20) 01/06/20 05:55 Glucose 97 mg/dl (70-99) 01/06/20 05:55 Calcium 8.0 mg/dl (8.5-10.1) L 01/06/20 05:55 Blood Type A Negative 01/04/20 11:21 Antibody Screen NEGATIVE 01/04/20 11:21 Diagnostic Findings RIGHT KNEE 2 VIEWS History: Right total knee arthroplasty. Degenerative arthritis. Postop. FINDINGS: The patient is status post a right total knee arthroplasty. The hardware is intact. No fracture or dislocation. Skin don are in place. IMPRESSION: Right total knee arthroplasty. No evidence for hardware complication.
[2020-01-06 07:56] LABS: Potassium 3.8 mmol/L (3.5-5.1)
[2020-01-06] MEDS ORDERED: CYANOCOBALAMIN 500 MCG TABLET (VITAMIN B-12) PO SCH (09:00)
[2020-01-06] MEDS ORDERED: METOPROLOL SUCC 25MG EXT REL TAB PO SCH (09:00)
[2020-01-06] MEDS ORDERED: MULTIVITAMIN TAB PO SCH (09:00)
[2020-01-06] MEDS ORDERED: CALCIUM CARBONATE 1250MG TAB PO SCH (09:00)
[2020-01-06] MEDS ORDERED: FOLIC ACID 400 MCG TAB PO SCH (09:00)
[2020-01-06] MEDS: ASPIRIN 81 MG ECTAB PO SCH (09:12)
[2020-01-06] MEDS: DOCUSATE SODIUM 100 MG CAP PO SCH (09:12)
[2020-01-06] MEDS: sulfaSALAzine 500 MG TABLET PO SCH (09:12)
[2020-01-06] MEDS: CHOLECALCIFEROL 1,000 UNITS 25 MCG TAB PO SCH (09:13)
--- NOTE | 2020-01-06 19:12 | Discharge Summary ---
Date of Service date of discharge: January 06, 2020 date of admission: 01-05-20 Admission HPI Per Admitting Provider Tristen is a 54 year old male who complains of Right knee pain, presents for pre-op evaluation prior to a Right knee arthrotomy medial retinaculum repair with possible poly exchange at [facility]. Tristen sustained a fall onto his right knee approximately 6-8 weeks ago. he had x-ray showing lateral tilt to his patella as well as a defect within the medial retinaculum. He complains of pain, decreased range of motion, and weakness in his right knee. Currently the patient states that the symptoms are moderate-severe. The pain is described as aching, sharp and throbbing. The symptoms occur continuously. The symptoms are aggravated by ascending stairs, daily activities, first steps while awake walking. He is currently using a brace and occasionally a cane when ambulating. Principal Diagnosis Right Knee Arthrotomy Medial Retinacular Repair Discharge Exam Vital Signs Temp 36.8 C 01/06/20 11:58 Pulse 93 H 01/06/20 11:58 Resp 16 01/06/20 11:58 BP 144/87 H 01/06/20 11:58 Pulse Ox 96 01/06/20 11:58 Intake & Output 01/06/20 01/06/20 01/07/20 06:59 18:59 06:59 Intake Total 1150 / 2900 1070 / 1070 Output Total 300 / 555 451 / 451 Balance 850 / 2345 619 / 619 Weight 121.291 kg Intake: IV 1000 / 1300 Nss 1000ML 1,000 ml @ 100 mls/ 1000 / 1000 hr IV .Q10H FLORECITA Rx#:[id number] Oral 150 / 150 1070 / 1070 Output: Urine 300 / 550 450 / 450 # Bowel Movements / Constitutional WD/WN, vitals as above no acute distress Musculoskeletal right knee: NVDI, calf SNT, negative triston sign. DP palpable, able to wiggle toes/ankle movement without difficulty. dressing clean dry and intact. expected post-operative bruising noted. 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: POD #1 s/p right knee medial retinaculum repair pt/ot dvt proph with BUD/SCD/ASA plan for d/c home with OPPT at [facility] locked in extension for ambulation, ROM 0-30 in bed Total Time Total Time Spent Total Time Spent (In Minutes): 20 Discharge Plan Discharge Items Patient Disposition: Home - Self-Care Reason For Visit: POST SURGICAL CARE Discharge Diagnosis: right knee medial retinaculum repair Condition on Discharge: Good Activity: Per Instructions section Weightbearing: Full weightbearing and Right weightbearing Non-emergency contact: Surgeon Call non-emergency contact if: you have any medication questions, your pain is not controlled, your temperature is above 101, your wound has increased redness, your wound has increased drainage and your wound pain has increased Follow-up/Referrals: Dejon Lang DO [Primary Care Provider] - Diet: Regular Addtl Attending Provider Instructions: ACTIVITY RECOMMENDATIONS: SELF CARE INSTRUCTIONS A. You may need to continue a physical therapy program after discharge from the hospital. There are several options available to you. Your doctor will assist you in selecting the best one for you. 1. An out-patient facility 2 to 3 times a week for therapy or home therapy. 2. Continue working on all exercises taught to you in the hospital. Your goals should be to increase bending of your knee to 90 degrees and beyond and to fully straighten your knee. B. You may progress at your own pace from walking with a walker or crutches to a cane; then to no assistive devices. C. Make walking a part of your daily routine. Be up as much as comfortable with rest periods throughout the day. Rest with leg elevation is very important. Use the ice wrap frequently for the first 3-4 weeks. D. There are no restrictions on activities. You may ride in a car, shop, participate in mortician investigator and all social activities. E. Wear the long elastic stockings (BUD hose) 20 hours a day for 2 weeks after surgery. They can be removed several times a day for laundering and for a bath. F. You may shower, no tub baths until cleared by your doctor. G. IMMOBILIZER ON WHILE WALKING, CAN UNLOCK WHEN SITTING AND ROM 0-30 DEGREES. ADVANCE 15 DEGREES PER WEEK TOLERATED. SPECIAL CARE INSTRUCTIONS: VERY IMPORTANT TO READ AND REVIEW A. There are a few signs you need to watch for after you are home. Call [facility] if you notice any of the followin. Increased severe knee pain. Some pain is expected especially when you exercise. 2. Increased swelling in your leg or knee; pain or swelling of the calf muscle in either lower leg. 3. Any fluid drainage from the incision. 4. Shortness of breath or chest pain. B. Please call [facility] at if you have any concerns or questions about your operation or recovery. The doctor or his nurse will return your call promptly. C. You must take antibiotics before dental work, bladder, bowel or other surgery. Your doctor will provide you with a permanent care to carry describing this precaution. IMPORTANT: * REMEMBER TO TAKE ASPIRIN, 81 MG, TWICE DAILY FOR 4 WEEKS UNLESS OTHERWISE DIRECTED. THIS IS YOUR BLOOD THINNER. * HIGH RISK PATIENTS MAY BE PRESCRIBED A STRONGER BLOOD THINNER. THIS WILL BE PROVIDED AT DISCHARGE. * CALL IF INCREASED PAIN, REDNESS, DRAINAGE OR FEVER GREATER THAT 101. * WEAR BUD HOSE 20 HOURS PER DAY FOR 2 WEEKS. * YOU MAY HAVE A LARGE BAND-AID LIKE DRESSING (SILVERON). THIS WILL REMAIN ON YOUR INCISION FOR 7 DAYS, THEN CAN BE REMOVED. IF INCISION IS LEAKING THROUGH DRESSING, CALL THE OFFICE . FOLLOW UP VISIT: If appointment is not already scheduled: Please call [facility] to make a follow-up appointment for 2 weeks after your surgery at . Pending Studies at Discharge: No Stand-Alone Forms: My [employer], Opioid Pain Management, Smoking Cessation Medications and DC Order Prescriptions: New acetaminophen 500 mg Tablet 1,000 mg PO Q8 Qty: 90 RF: 0 celecoxib [Celebrex] 200 mg Capsule 200 mg PO BID Qty: 60 RF: 0 aspirin 81 mg Tablet,Delayed Release (Dr/Ec) 81 mg PO BID 30 Days Qty: 60 RF: 0 oxycodone 5 mg Tablet 5 - 10 mg PO Q4H PRN (Reason: pain) Qty: 30 RF: 0 docusate sodium 100 mg Capsule 100 mg PO BID 10 Days Qty: 20 RF: 0 cefadroxil 500 mg capsule 500 mg PO BID Qty: 20 RF: 0 Continued multivitamin Tablet 1 tab PO QAM RF: 0 sulfasalazine [Azulfidine] 500 mg tablet 500 mg PO BID RF: 0 cyanocobalamin (vitamin B-12) [Vitamin B-12] 1,000 mcg Tablet 1,000 mcg PO QAM RF: 0 calcium carbonate [Calcium 600] 600 mg calcium (1,500 mg) Tablet 1,200 mg PO QAM RF: 0 cyanocobalamin (vitamin B-12) 1,000 mcg/mL Solution 5,000 mcg IM WK RF: 0 vitamin B complex Tablet 1 tab PO QPM RF: 0 ergocalciferol (vitamin D2) 50,000 unit Capsule 50,000 unit PO WK RF: 0 folic acid 800 mcg Tablet 800 mcg PO QAM RF: 0 cholecalciferol (vitamin D3) [Vitamin D3] 1,000 unit Capsule 1,000 units PO BID RF: 0 omeprazole 40 mg capsule,delayed release(DR/EC) 40 mg PO QAM RF: 0 metoprolol succinate 25 mg Tablet Extended Release 24 Hr 25 mg PO QAM RF: 0 Discontinued acetaminophen 500 mg Tablet 1,000 mg PO Q8H PRN (Reason: Pain) RF: 0 methotrexate sodium 2.5 mg tablet 12.5 mg PO .FRIDAY RF: 0 saw palmetto 500 mg Capsule 1,000 mg PO BID RF: 0 Rodri's wort 300 mg Capsule 300 mg PO QAM RF: 0 ginkgo biloba 500 mg Capsule 1,000 mg PO BID RF: 0 omega 1-bol-ulz-fish oil [Fish Oil] 1,000 mg (120 mg-180 mg) Capsule 1,000 mg PO BID RF: 0 oxycodone 5 mg Tablet 5 mg PO Q6H PRN (Reason: pain) Qty: 30 RF: 0 Discharge Orders: Discharge Order (Routine); Ordered 01/06/20 Ordered By: Fox Srivastava/Other Patient Handouts: Tips Knee Post Op Admission Data Admit Date/Time: 01/05/20 13:49 Attending Provider: Jamey Rothman Admit Provider: Jamey Rothman Primary Care Provider: Dejon Lang Other Interventions: Discharge Summary Assessment (RN) Last Done: 01/06/20 11:47 DC Date/Time DO NOT enter until pt leaves facility: 01/06/20 15:18
[2020-01-06] MEDS ORDERED: CeleBREX 200 MG CAP PO SCH (21:00)
[2020-01-07] MEDS ORDERED: CYANOCOBALAMIN 1000 MCG/ML VIAL IM SCH (09:00)
[2020-01-10] MEDS ORDERED: ERGOCALCIFEROL 50,000 UNITS CAP PO SCH (09:00)
== END 2020-01-06 15:18 | disposition home or self-care (01) | DRG 489 ==
LOC: ASU 10:58 → 3E 13:49 → INTOOBSV 13:49 → 3E 15:44

== ENCOUNTER 2025-02-05 19:17 | Observation (INO) ==
--- NOTE | 2025-02-05 19:32 | Emergency Department Note ---
Impression & Plan Acute cholecystitis, Right sided abdominal pain, Cholelithiasis ED Provider Note NAME: CONCHIS ESPINOZA AGE: 59 SEX: M : 1965 ARRIVES VIA: Walk-In INFORMANT: Patient, significant other ED PROVIDER(S): Ernst Baum MD CHIEF COMPLAINT: Abdominal pain, possible Crohn's flare or UTI MEDICAL DECISION MAKING: Patient presents with the above. IV was established and blood work was obtained. Patient was ordered IV Tylenol Zofran and IV fluids. CT abdomen pelvis ordered along with urinalysis. Patient's blood work shows a normal white count with normal hemoglobin. Platelet count of 80,000 which is new from comparison. Mild hyponatremia at 132. Bilirubin of 2.2 has been elevated in the past. Other LFTs are unremarkable. Urinalysis shows blood but no signs of obvious infection. Patient was reassessed and was feeling improved. Patient reassessed and sleeping comfortably. Patient CT shows portal vein dilation and portal venous hypertension. Splenomegaly also noted. Bowel is nondilated no inflammatory changes of the bowel. There is concern for possible cholecystitis as there are gallstones 6 mm gallbladder wall thickening and surrounding fluid. Patient was reassessed and does not have significant right upper quadrant pain. Patient had presented more with right lower quadrant pain. Given the patient's symptoms though do believe the patient would benefit from inpatient monitoring and treatment as well as surgical consultation which may occur in the morning. I did message with the on-call general surgeon Dr. Timur Neri agrees with plan of care. Patient was ordered IV Zosyn gallbladder ultrasound I did speak with the on-call hospitalist service Dr. Levine and the patient was admitted to the medicine service. Discussion w/ other healthcare providers: Dr. Timur Neri general surgery Dr. Levine inpatient medicine service Prior /Outside records reviewed: I reviewed part of a primary care visit note from December 16, 2024 from Armaan Guzman. Patient was treated for cellulitis and had a tick bite. Patient with a history of cirrhosis fatty liver BPH GERD hypertension. Differential diagnosis: Inflammatory bowel disease, appendicitis, testicular torsion, UTI, diverticulitis, obstruction, renal colic, mesenteric adenitis, enteririts, PUD, pancreatitis, biliary pathology, hernia, volvulus, constipation, as well as other pathologies were considered. Diagnostics, as interpreted by me: ECG: None Cardiac monitoring: An order was placed for continuous cardiac monitoring. The monitor shows a rate of 105 with tachycardic and regular rhythm. Patient was placed on pulse oximetry Medical decision rules: None Imaging studies: I informally interpreted the patient's CT abdomen pelvis does show pericholecystic fluid with formal report to follow. HPI: Patient presents due to concern for fevers chills abdominal pain dysuria. The patient states that he initially began having symptoms on Friday. The patient states that his symptoms been fairly constant. He did try some Tylenol and Benadryl at home sometimes the Benadryl does help with his Crohn's related pain but this did not seem to improve it. The patient has felt fevered and chilled though is not taking a temperature at home. Patient denies any blood in the stools. He does follow with a Dr. Leonardo at [facility] in [place] for his Crohn's and does receive Humira twice monthly. Patient states it could be a Crohn's flare or just a generalized illness. The patient also stated that he thought maybe he had some pain by his right kidney and has had some associated dysuria. No blood in the urine or stool. PAST MEDICAL HISTORY: See Below PAST SURGICAL HISTORY: See Below SOCIAL HISTORY: See Below HOME MEDICATIONS: See Below ALLERGIES: See Below VITALS: See Below PHYSICAL EXAMINATION: GENERAL: NAD, non-toxic. Wearing glasses. EYE EXAM: Normal conjunctiva. PERRL, no anisocoria and EOM's grossly intact w/o pain. OROPHARYNX: Dry mucous membranes, edentulous. NECK: Trachea midline, no stridor. LUNGS: Clear to auscultation. Normal chest wall mechanics. HEART: NSR, no MRG. ABDOMEN: Abdomen soft, right lower quadrant pain, not peritonitic, no masses, no rebound or guarding. BACK: No CVA TTP. SKIN: No rashes and no bruising. UPPER EXTREMITIES: Upper extremities are grossly normal. LOWER EXTREMITIES: Grossly normal, no edema. NEURO EXAM: Awake and alert, follows commands, no obvious facial asymmetry, normal speech, moves all 4 extremities. 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 Esophageal varices (08/2023) Grade 1, EGD Aug 2023 Liver cirrhosis Arthritis associated with inflammatory bowel disease Urinary urgency Venous insufficiency (chronic) (peripheral) Idiopathic polyneuropathy Cholelithiasis Hepatic steatosis Sleep apnea H/O attention deficit disorder Lower urinary tract symptoms (LUTS) Allergic rhinitis Osteoarthritis BPH (benign prostatic hyperplasia) GERD (gastroesophageal reflux disease) Hypertension Crohn's disease Follows with GI Medical History Left maxillary sinusitis History of anesthesia reaction "has had wonky breathing issues after surgery in the past, his blood oxygen levels seem to drop and they have a hard time keeping them up without oxygen. 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 Idiopathic polyneuropathy Hypertension Hepatic steatosis Hx of attention deficit hyperactivity disorder GERD (gastroesophageal reflux disease) Hx of esophageal varices Grade 1, EGD Aug 2023 > procedure completed in [place] Dysphagia Crohn's disease Sleep apnea CPAP History of COVID-19 06/2021: loss taste/smell, SOB, chest congestion > resolved Hx of tuberculosis s/p INH therapy x 1 yr (~2007) Bipolar disorder Rotator cuff tear, right Surgical History S/P sinus surgery (07/27/24) H/O unilateral orchiectomy History of esophagogastroduodenoscopy (EGD) Hx of colonoscopy 2023 S/P orchiectomy (08/2022) Left Hx of knee surgery Knee cap "put back in place" S/P arthroscopy of left shoulder rotator cuff repair History of arthroscopy of right shoulder rotator cuff repair History of total knee replacement Right History of cystoscopy Hx of vasectomy History of herniorrhaphy Umbilical hernia History of appendectomy H/O resection of small bowel (2008) History of tooth extraction History of tonsillectomy and adenoidectomy Family History Mother Diabetes Hypertension Multiple sclerosis Father Diabetes Hypertension Skin cancer Dementia Parkinson disease Other No family history of adverse response to anesthesia No family history of bleeding disorder Denies family history of Ovarian cancer Prostate cancer Myocardial infarction Breast cancer Colorectal cancer Social History Smoking Status: Former smoker Tobacco Type: Cigarettes Age Started Using Tobacco: 19; Age Quit Using Tobacco: 45; packs per day: 1; Second Hand Exposure: No; Do You Dip or Chew Tobacco: No; Hx Alcohol Use: Yes Alcohol type: hard liquor Hx Substance Use: No Preferred Language: Argentine Communication Ability: Effective Visual Impairment: No Limitations Hearing Ability: Normal Retail Banking Manager Required: No Beliefs That Will Affect Care: Hinduism Hinduism Beliefs: Restorationist marital status: Current Living Situation: Spouse Current Living Situation Comment: lives with current occupational status: retired current occupation: retired How many Children do You have: 5 Other Information That Helps Us Care for You: No Feels Safe at Home: Yes Safety Concerns: Feels Safe At This Time Childhood Exposure to Second-Hand Smoke: Yes Diet: regular Diet Comment: regular/ low residue caffeine: Yes (Coffee x 3 per day) during the past year weight has: decreased > 10 lbs Dental Care, Regularly: No Physical Activity Frequency: Daily Seatbelt Use: sometimes Sunscreen Use: Yes Assistive Devices: CPAP and Glasses Allergies Allergies Allergy/AdvReac Type Severity Reaction Status Date / Time azathioprine AdvReac Intermediate Neuro Verified 12/16/24 13:35 changes, flu-like symptoms Home Meds Home Medications Medication Instructions Recorded Confirmed cyanocobalamin (vitamin B-12) 5,000 mcg IM WK 11/26/18 12/16/24 1,000 mcg/mL injection solution multivitamin 1 tab PO QAM 11/26/18 12/16/24 adalimumab 40 mg/0.8 mL 40 mg subcut Q14D 04/19/21 12/16/24 subcutaneous pen kit (Humira Pen) zinc acetate 50 mg (zinc) capsule 50 mg PO QAM 06/22/21 12/16/24 (Galzin) [place] 1 tab PO BID 08/30/22 12/16/24 magnesium oxide 400 mg PO DAILY 11/21/22 12/16/24 aczxftjt-unttkx-qvk-pdp-yrw-hdoj-horse 1 tab PO BID 01/23/23 12/16/24 100 mg-100 mg-100 mg-125 mg tab ginkgo biloba 60 mg capsule 60 mg PO QAM 03/10/23 12/16/24 acetaminophen 500 mg tablet 1,000 mg PO BID PRN 09/03/24 12/16/24 celecoxib 200 mg capsule (Celebrex) 200 mg PO QAM PRN 09/03/24 12/16/24 cyclosporine 0.05 % eye drops in a 1 drp OPB BID PRN 09/03/24 12/16/24 dropperette (Restasis) fenugreek seed extract 500 mg 500 mg PO BID 09/03/24 12/16/24 capsule Previous Rx's Medication Instructions Recorded folic acid 400 mcg tablet 0.4 mg PO BID #30 tabs 04/19/21 insulin syringe-needle U-100 1 mL #100 ea 04/19/21 30 gauge x 1/2" (BD Insulin Syringe Ultra-Fine) omega 0-rke-jbz-fish oil 1,200 mg 1 cap PO BID #60 caps 04/19/21 (144 mg-216 mg) capsule (Fish Oil) saw palmetto 450 mg capsule 900 mg (2 x 450 mg) PO BID #60 caps 04/19/21 albuterol sulfate 90 mcg/actuation 2 puff inhalation Q6H PRN 11/19/21 aerosol inhaler shortness of breath or wheezing #18 grams inhalational spacing device #10 ea 11/19/21 (Aerochamber MV spacer) tramadol 50 mg tablet 50 mg PO Q6H PRN pain #10 tabs 09/03/22 ondansetron HCl 8 mg tablet 8 mg PO Q12H PRN nausea and 07/26/24 vomiting 6 days #12 tabs budesonide 0.5 mg/2 mL suspension 0.5 mg (2 mL) inhalation DAILY 30 08/06/24 for nebulization days #60 mL comp.stocking,knee,long,medium #12 ea 09/03/24 cholecalciferol (vitamin D3) 1,250 50,000 unit PO Q7D #14 caps 10/26/24 mcg (50,000 unit) capsule Auto Titrating CPAP See Rx Instructions .Route 12/08/24 .COMPLEX #1 ea Results & Data (ED) Vital Signs Vital Signs - 24 hr 02/05/25 19:18 02/05/25 19:18 02/05/25 19:21 Temperature 36.7 C Temperature Source Temporal Artery Scan Pulse Rate 105 H Pulse Rate [Finger] 104 H Pulse Rhythm Pulse Rhythm [Finger] Regular Respiratory Rate 18 20 Respiratory Effort / Characteristics Non-Labored Spontaneous Respiratory Depth Normal Blood Pressure 121/80 Blood Pressure [Right Arm] 119/71 Blood Pressure Mean 93 Blood Pressure Mean [Right Arm] 87 Pulse Oximetry 94 94 Oxygen Delivery Method Room Air Room Air Room Air Sepsis Recent Fever Within 48 Hours No Sepsis New/Unexplained Change in Mental Status N/A Sepsis Action Taken by Nursing No Action Required 02/05/25 19:41 02/05/25 19:58 02/05/25 21:18 Temperature Temperature Source Pulse Rate 106 H 104 H Pulse Rate [Finger] 97 H Pulse Rhythm Regular Pulse Rhythm [Finger] Regular Respiratory Rate 16 16 Respiratory Effort / Characteristics Respiratory Depth Normal Blood Pressure Blood Pressure [Right Arm] 111/76 Blood Pressure Mean Blood Pressure Mean [Right Arm] 87 Pulse Oximetry 94 93 Oxygen Delivery Method Room Air Room Air Sepsis Recent Fever Within 48 Hours Sepsis New/Unexplained Change in Mental Status Sepsis Action Taken by Nursing 02/05/25 23:00 02/05/25 23:33 Temperature Temperature Source Pulse Rate 89 Pulse Rate [Finger] 80 Pulse Rhythm Pulse Rhythm [Finger] Regular Respiratory Rate 16 Respiratory Effort / Characteristics Respiratory Depth Normal Blood Pressure Blood Pressure [Right Arm] 109/63 Blood Pressure Mean Blood Pressure Mean [Right Arm] 78 Pulse Oximetry 95 Oxygen Delivery Method Room Air Sepsis Recent Fever Within 48 Hours Sepsis New/Unexplained Change in Mental Status Sepsis Action Taken by Correction Medications Current Medication List: was personally reviewed by me Laboratory Data Attestation: I reviewed the patient's lab results. 02/06/25 06:03 02/06/25 06:03 Lab Results 02/05/25 02/05/25 02/05/25 Range/Units 19:50 19:56 20:29 WBC 6.11 (4.8-10.8) K/ul RBC 5.14 (4.70-6.10) M/uL Hgb 14.7 (14.0-18.0) g/dl POC Hgb 13.9 L (14.0-18.0) g/dl Hct 41.5 L (42.0-52.0) % POC Hct 41 L (42-52) % MCV 80.7 (80.0-100.0) fL MCH 28.6 (25.0-34.0) pg MCHC 35.4 (32.0-36.0) g/dL RDW Std Deviation 42.4 (36.4-46.3) fL RDW Coeff of Ale 14.5 (11.5-14.5) % Plt Count 80 L (130-400) K/uL MPV 10.6 (9.4-12.4) fL Neutrophils % (Manual) 55 % Lymphocytes % (Manual) 16 % Reactive Lymphs % (Man) 24 % Monocytes % (Manual) 5 % Neutrophils # (Manual) 3.36 (1.40-6.50) K/uL Total Absolute Neuts 3.36 (1.4-6.5) K/uL Lymphocytes # (Manual) 0.98 L (1.2-3.4) K/uL Reactive Lymphs # 1.47 K/uL Total Abs Lymphocytes 2.44 (1.2-3.4) K/uL Monocytes # (Manual) 0.31 (0.11-0.59) K/uL Platelet Estimate Decreased L (Normal) POC Sodium 134 L (135-144) mmol/L Sodium 132 L (136-145) mmol/L POC Potassium 3.3 (3.3-5.0) mmol/L Potassium 3.5 (3.5-5.1) mmol/L POC Chloride 97 L (101-112) mmol/L Chloride 98 (98-107) mmol/L Carbon Dioxide 25 (21-32) mmol/L POC Total CO2 22 L (24-31) mmol/L Anion Gap 9 (3-11) POC Anion Gap 19.0 (16-25) mmol/L POC BUN 11 (7-18) mg/dl BUN 13 (6-23) mg/dl Creatinine 0.87 (0.6-1.4) mg/dl POC Creatinine 0.8 (0.6-1.3) mg/dl Est Cr Clr Drug Dosing 116.3 ml/min eGFR 100.64 BUN/Creatinine Ratio 14.9 (10-20) Glucose 99 (70-99(Fasting)) mg/dl POC Glucose (other) 101 H (70-99) mg/dl Calcium 8.9 (8.6-10.3) mg/dl POC Ioniz Calcium Edel 1.13 (1.12-1.32) mmol/l Total Bilirubin 2.2 H (0.2-1.0) mg/dl AST 20 (13-39) U/L ALT 24 (7-52) U/L Alkaline Phosphatase 68 (34-104) U/L Total Protein 6.7 (6.0-8.3) gm/dl Albumin 3.7 (3.4-5.0) gm/dl Globulin 3.0 (2.5-4.0) gm/dl Albumin/Globulin Ratio 1.2 (0.9-2) Urine Color Yellow Urine Appearance Clear (Clear) Urine pH 6.0 (4.5-7.5) Ur Specific [place] 1.008 (1.000-1.030) Urine Protein Negative (Negative) Urine Glucose (UA) Negative (Negative) Urine Ketones Negative (Negative) Urine Blood 2+ H (Negative) Urine Nitrite Negative (Negative) Urine Bilirubin Negative (Negative) Urine Urobilinogen Negative (Negative) Ur Leukocyte Esterase Negative (Negative) Urine WBC (Auto) 0-5 (0-5) /hpf Urine RBC (Auto) 3-5 H (0-2) /hpf U Hyaline Cast (Auto) 0-2 (0-2) /lpf U Epithel Cells (Auto) 0-2 (0-2) /hpf Urine Bacteria (Auto) None Seen (None Seen) Urine Comment Administered Medications Acetaminophen (Acetaminophen 325 Mg Tab) 650 mg PO Q4H PRN PRN Reason: Pain or Fever Stop: 03/08/25 11:50 Last Admin: 02/06/25 12:25 Dose: 650 mg Documented By: RICARDO Budesonide (Budesonide 0.5 Mg/2 Ml Vial (Pulmicort)) 0.5 mg INH QDR [facility] Stop: 03/08/25 07:59 Last Admin: 02/06/25 07:01 Dose: 0.5 mg Documented By: LINDA Lactated Ringer's (Lr) 1,000 mls @ 80 mls/hr IV .[id number] [facility] Stop: 02/07/25 01:29 Last Admin: 02/06/25 13:28 Dose: 80 mls/hr Documented By: Infusion: 02/06/25 13:28 Dose: Infused Documented By: Admin: 02/06/25 01:04 Dose: 80 mls/hr Documented By: KATHRYN Piperacillin Sod/Tazobactam Sod (Zosyn) 4.5 gm in 100 mls @ 25 mls/hr IV Q8H FLORECITA; Protocol Stop: 02/16/25 05:59 Last Admin: 02/06/25 13:28 Dose: 25 mls/hr Documented By: RRAida Infusion: 02/06/25 10:57 Dose: Infused Documented By: Infusion: 02/06/25 05:59 Dose: 25 mls/hr Documented By: Infusion: 02/06/25 05:37 Dose: 0 mls/hr Documented By: Admin: 02/06/25 05:37 Dose: 25 mls/hr Documented By: RUDDY Discontinued Medications Acetaminophen (Ofirmev) 1,000 mg in 100 mls @ 400 mls/hr IV NOW STA Stop: 02/05/25 20:12 Last Infusion: 02/05/25 21:51 Dose: Infused Documented By: Admin: 02/05/25 21:26 Dose: 400 mls/hr Documented By: VANESSA Sodium Chloride (Nss) 1,000 mls @ 999 mls/hr IV .Q1H1M ONE Stop: 02/05/25 20:59 Last Infusion: 02/05/25 22:45 Dose: Infused Documented By: Admin: 02/05/25 21:29 Dose: 999 mls/hr Documented By: VANESSA Piperacillin Sod/Tazobactam Sod (Zosyn) 4.5 gm in 100 mls @ 200 mls/hr IV NOW ONE; Protocol Stop: 02/06/25 00:08 Last Infusion: 02/06/25 00:16 Dose: Infused Documented By: Admin: 02/05/25 23:44 Dose: 200 mls/hr Documented By: KATHRYN Acetaminophen (Ofirmev) 1,000 mg in 100 mls @ 400 mls/hr IV Q8H PRN PRN Reason: Pain or Fever Stop: 02/09/25 02:13 Last Infusion: 02/06/25 05:59 Dose: Infused Documented By: Admin: 02/06/25 05:42 Dose: 400 mls/hr Documented By: LRA Ioversol (Optiray 320 100ml) 90 ml IV ONCE ONE Stop: 02/05/25 20:37 Last Admin: 02/05/25 20:37 Dose: 90 ml Documented By: GIULIA Ondansetron HCl (Ondansetron Inj 2 Mg/Ml 2 Ml Vial) 4 mg IV NOW STA Stop: 02/05/25 19:59 Last Admin: 02/05/25 21:26 Dose: 4 mg Documented By: NAW Imaging Data Radiologist's Impression: Gallbladder Ultrasound 02/06/25 00:00 EXAM: US gallbladder CLINICAL HISTORY: ?acute [place] on CT TECHNIQUE: Limited ultrasound of the liver and gallbladder (RUQ) was performed in greyscale and Doppler. COMPARISON: No prior studies are available for comparison. FINDINGS: Liver: Liver size: Mildly enlarged, the right lobe measuring 20.6 cm, displays heterogenous echotexture with nodular outlines no definite focal lesions. Hepatic vasculature appears normal. Gallbladder: The gallbladder is distended with multiple calculi within the lumen of the gallbladder. The wall of the gallbladder appeared edematous and thickened, wall thickness of about 4.2 mm. A streak of pericholecystic fluid is seen. Comet tail artifact also noted along the nondependent wall of the gallbladder findings are likely to represent acute, on top of chronic, cholecystitis associated with adenomyomatosis. Please correlate clinically, and follow-up is advised. Biliary Tree: Common bile duct diameter: [5 mm].The common bile duct is within normal limits in caliber and not dilated evidence of choledocholithiasis or biliary obstruction. Right kidney is normal in size measuring 13.5 centimeters sin agittal diameter with normal parenchymal thickness and normal corticomedullary differentiation, no hydronephrosis or stones small cyst is seen near the lower pole, measuring about 1.7 x 1.4 x 1.4 cm with no septations no calcifications and no sizable soft tissue component IMPRESSION: 1. Parenchyma to his liver disease [early cirrhotic changes] with no focal lesions. 2. The gallbladder is distended with multiple calculi within the lumen of the gallbladder. The wall of the gallbladder appeared edematous and thickened, wall thickness of about 4.2 mm. A streak of pericholecystic fluid is seen. Comet tail artifact also noted along the nondependent wall of the gallbladder findings are likely to represent acute, on top of chronic, cholecystitis associated with adenomyomatosis. Please correlate clinically, and follow-up is advised. 3. Right renal benign-looking cyst. Electronically signed by Yasir Garcia 02-06-2025 03:36 AM Abdomen/Pelvis CT 02/05/25 19:58 Exam(s): CT ABDOMEN + PELVIS With Contrast IV Amt: 90 ml optiray 320 EXAM: CT Abdomen and Pelvis With Intravenous Contrast CLINICAL HISTORY: Reason for exam: RLQ pain; dysuria, h/o Crohn's disease TECHNIQUE: Axial computed tomography images of the abdomen and pelvis with intravenous contrast. CTDI is 28.14 mGy and DLP is 1415.4 mGy-cm. Automated exposure control was utilized for the study. A dose lowering technique was utilized adhering to the principles of ALARA. CONTRAST: Patient received 90 ml optiray 320 of IV contrast COMPARISON: 03/10/2023 FINDINGS: Lung bases: Unremarkable. No mass. No consolidation. ABDOMEN: Liver: The liver is enlarged measuring 21 cm craniocaudad. No focal liver mass lesion is seen. Gallbladder and bile ducts: There are multiple noncalcified gallstones in the dependent portion of the gallbladder as well as 6 mm gallbladder wall thickening and surrounding fluid. No ductal dilation. Pancreas: Unremarkable. No mass. No ductal dilation. Spleen: The spleen is enlarged measuring 20 x 20.8 x 12.7 cm 2.77 L, increased since previous when it measured 16 x 10.5 x 16.5 cm 1.45 L. Adrenals: Unremarkable. No mass. Kidneys and ureters: Nonobstructive 3 mm caliceal calculus in the left kidney. No hydronephrosis or ureterolithiasis is seen involving either kidney. Stomach and bowel: Unremarkable. No obstruction. No mucosal thickening. PELVIS: Appendix: No findings to suggest acute appendicitis. Bladder: Unremarkable. No mass. Reproductive: Unremarkable as visualized. ABDOMEN and PELVIS: Intraperitoneal space: Bowel loops are nondilated. There is a staple line at a small bowel to mid right colon anastomosis. No pneumoperitoneum, free fluid, or acute inflammatory changes are seen involving the bowel. Bones/joints: Mild degenerative changes in the spine. No acute fracture or subluxation. Soft tissues: Unremarkable. Vasculature: The portal vein is dilated measuring 19 mm suggesting portal venous hypertension. No ascites. Lymph nodes: Unremarkable. No enlarged lymph nodes. IMPRESSION: 1. The portal vein is dilated measuring 19 mm suggesting portal venous hypertension. No ascites. 2. There are multiple noncalcified gallstones in the dependent portion of the gallbladder as well as 6 mm gallbladder wall thickening and surrounding fluid. Consider acute cholecystitis. 3. The spleen is enlarged measuring 20 x 20.8 x 12.7 cm 2.77 L, increased since previous when it measured 16 x 10.5 x 16.5 cm 1.45 L. 4. Bowel loops are nondilated. There is a staple line at a small bowel to mid right colon anastomosis. No pneumoperitoneum, free fluid, or acute inflammatory changes are seen involving the bowel. Electronically signed by: Christ Ruiz MD 02/05/25 23:28 PM Gallbladder Ultrasound 02/06/25 00:00 EXAM: US gallbladder CLINICAL HISTORY: ?acute [place] on CT TECHNIQUE: Limited ultrasound of the liver and gallbladder (RUQ) was performed in greyscale and Doppler. COMPARISON: No prior studies are available for comparison. FINDINGS: Liver: Liver size: Mildly enlarged, the right lobe measuring 20.6 cm, displays heterogenous echotexture with nodular outlines no definite focal lesions. Hepatic vasculature appears normal. Gallbladder: The gallbladder is distended with multiple calculi within the lumen of the gallbladder. The wall of the gallbladder appeared edematous and thickened, wall thickness of about 4.2 mm. A streak of pericholecystic fluid is seen. Comet tail artifact also noted along the nondependent wall of the gallbladder findings are likely to represent acute, on top of chronic, cholecystitis associated with adenomyomatosis. Please correlate clinically, and follow-up is advised. Biliary Tree: Common bile duct diameter: [5 mm].The common bile duct is within normal limits in caliber and not dilated evidence of choledocholithiasis or biliary obstruction. Right kidney is normal in size measuring 13.5 centimeters sin agittal diameter with normal parenchymal thickness and normal corticomedullary differentiation, no hydronephrosis or stones small cyst is seen near the lower pole, measuring about 1.7 x 1.4 x 1.4 cm with no septations no calcifications and no sizable soft tissue component IMPRESSION: 1. Parenchyma to his liver disease [early cirrhotic changes] with no focal lesions. 2. The gallbladder is distended with multiple calculi within the lumen of the gallbladder. The wall of the gallbladder appeared edematous and thickened, wall thickness of about 4.2 mm. A streak of pericholecystic fluid is seen. Comet tail artifact also noted along the nondependent wall of the gallbladder findings are likely to represent acute, on top of chronic, cholecystitis associated with adenomyomatosis. Please correlate clinically, and follow-up is advised. 3. Right renal benign-looking cyst. Electronically signed by Yasir Garcia 02-06-2025 03:36 AM Discharge Plan Visit Data Chief Complaint: Dizziness Stated Complaint: DIZZINESS, COUGH, LIGHTHEADED, TINGLING ED Provider: Ernst Baum Discharge Problem: Acute cholecystitis, Right sided abdominal pain, Cholelithiasis Patient Disposition: Admitted As Inpatient Condition: Good Discharge Instructions Interventions: ED Discharge Assessment Last Done: 02/06/25 01:45 Discharge Problem: Cholelithiasis Qualifiers: Cholelithiasis location: gallbladder Cholecystitis presence: with cholecystitis Cholecystitis acuity: acute and chronic Biliary obstruction: without biliary obstruction Qualified Code(s): K80.12 - Calculus of gallbladder with acute and chronic cholecystitis without obstruction
[2025-02-05 20:27] LABS: Appearance Urine Clear (Clear); Bacteria Urine Automated None Seen (None Seen); Cast Urine Automated 0-2 /lpf (0-2); Epithelial Cell Urine Auto 0-2 /hpf (0-2); Glucose Urine UA Negative (Negative); WBC Urine Automated 0-5 /hpf (0-5)
[2025-02-05 20:30] LABS: Alanine Aminotransferase 24.0 U/L (7-52); Albumin Globulin Ratio 1.2 (0.9-2); Alkaline Phosphatase 68.0 U/L (34-104); Anion Gap 9.0 (3-11); Bilirubin,Total 2.2 mg/dl (0.2-1.0); Blood Urea Nitrogen 13.0 mg/dl (6-23); Calcium 8.9 mg/dl (8.6-10.3); Carbon Dioxide 25.0 mmol/L (21-32); Chloride 98.0 mmol/L (98-107); Creatinine Clr Calc Pharmacy 116.3 ml/min; Globulin 3.0 gm/dl (2.5-4.0); Glucose 99.0 mg/dl (70-99(Fasting)); Potassium 3.5 mmol/L (3.5-5.1); Sodium 132.0 mmol/L (136-145); Total Protein 6.7 gm/dl (6.0-8.3)
[2025-02-05 20:31] LABS: Hematocrit (blood only) 41.5 % (42.0-52.0); Hemoglobin 14.7 g/dl (14.0-18.0); Mean Corpuscular Hemoglobin 28.6 pg (25.0-34.0); Mean Corpuscular Volume 80.7 fL (80.0-100.0); Platelet Count 80 K/uL (130-400); RDW Standard Deviation 42.4 fL (36.4-46.3); Red Blood Count 5.14 M/uL (4.70-6.10); White Blood Count 6.11 K/ul (4.8-10.8)
[2025-02-05] MEDS: OPTIRAY 320 100ml IV ONE (20:37)
[2025-02-05 20:56] LABS: ALC (manual) 2.44 K/uL (1.2-3.4); ANC (manual) 3.36 K/uL (1.4-6.5); Reactive Lymphocytes # (manual) 1.47 K/uL; Reactive Lymphocytes % (manual) 24 %
[2025-02-05] MEDS: ONDANSETRON INJ 2 MG/ML 2 ML VIAL IV STA (21:26)
[2025-02-05] MEDS: ACETAMINOPHEN 1,000 MG/100 ML VIAL IV STA (21:26)
[2025-02-05] MEDS: SODIUM CHLORIDE 0.9% 1,000 ML IV ONE (21:29)
--- NOTE | 2025-02-05 23:29 | CT Scan Report ---
Exam(s): CT ABDOMEN + PELVIS With Contrast IV Amt: 90 ml optiray 320 EXAM: CT Abdomen and Pelvis With Intravenous Contrast CLINICAL HISTORY: Reason for exam: RLQ pain; dysuria, h/o Crohn's disease TECHNIQUE: Axial computed tomography images of the abdomen and pelvis with intravenous contrast. CTDI is 28.14 mGy and DLP is 1415.4 mGy-cm. Automated exposure control was utilized for the study. A dose lowering technique was utilized adhering to the principles of ALARA. CONTRAST: Patient received 90 ml optiray 320 of IV contrast COMPARISON: 03/10/2023 FINDINGS: Lung bases: Unremarkable. No mass. No consolidation. ABDOMEN: Liver: The liver is enlarged measuring 21 cm craniocaudad. No focal liver mass lesion is seen. Gallbladder and bile ducts: There are multiple noncalcified gallstones in the dependent portion of the gallbladder as well as 6 mm gallbladder wall thickening and surrounding fluid. No ductal dilation. Pancreas: Unremarkable. No mass. No ductal dilation. Spleen: The spleen is enlarged measuring 20 x 20.8 x 12.7 cm 2.77 L, increased since previous when it measured 16 x 10.5 x 16.5 cm 1.45 L. Adrenals: Unremarkable. No mass. Kidneys and ureters: Nonobstructive 3 mm caliceal calculus in the left kidney. No hydronephrosis or ureterolithiasis is seen involving either kidney. Stomach and bowel: Unremarkable. No obstruction. No mucosal thickening. PELVIS: Appendix: No findings to suggest acute appendicitis. Bladder: Unremarkable. No mass. Reproductive: Unremarkable as visualized. ABDOMEN and PELVIS: Intraperitoneal space: Bowel loops are nondilated. There is a staple line at a small bowel to mid right colon anastomosis. No pneumoperitoneum, free fluid, or acute inflammatory changes are seen involving the bowel. Bones/joints: Mild degenerative changes in the spine. No acute fracture or subluxation. Soft tissues: Unremarkable. Vasculature: The portal vein is dilated measuring 19 mm suggesting portal venous hypertension. No ascites. Lymph nodes: Unremarkable. No enlarged lymph nodes. IMPRESSION: 1. The portal vein is dilated measuring 19 mm suggesting portal venous hypertension. No ascites. 2. There are multiple noncalcified gallstones in the dependent portion of the gallbladder as well as 6 mm gallbladder wall thickening and surrounding fluid. Consider acute cholecystitis. 3. The spleen is enlarged measuring 20 x 20.8 x 12.7 cm 2.77 L, increased since previous when it measured 16 x 10.5 x 16.5 cm 1.45 L. 4. Bowel loops are nondilated. There is a staple line at a small bowel to mid right colon anastomosis. No pneumoperitoneum, free fluid, or acute inflammatory changes are seen involving the bowel. Electronically signed by: Christ Ruiz MD 02/05/25 23:28 PM
[2025-02-05] MEDS: PIPERACILLIN/TAZOBACTAM 4.5 GM/100 ML BAG IV ONE (23:44)
--- NOTE | 2025-02-05 23:57 | History & Physical Report ---
Date of Service February 05, 2025 Assessment & Plan (1) Acute cholecystitis: (2) Hyponatremia: (3) Crohn's disease: (4) Liver cirrhosis: Plan Patient is a 59-year-old male with past medical history of Crohn's disease on Humira, liver cirrhosis with grade 1 esophageal varices, KELLY on CPAP, GERD, BPH. Patient presented due to abdominal pain, fever, and chills that began on Friday and was found to have acute cholecystitis with a T bilirubin 2.2. He is being admitted for IV antibiotics and to have surgery eval. #acute cholecystitisAP CT showed multiple noncalcified gallstones with gallbladder wall thickening (6mm) suggestive of acute cholecystitis. LFTs showed T. bili 2.2, otherwise WNL. Nonseptic presentation at time of admission, no leukocytosis, VSS, afebrile. RUQ pain, worse with palpation. Continue Zosyn N.p.o.; anticipate surgical management Surgery consulted Received 1L NSS bolus in ED, continue fluid resuscitation with LR at 80 mL/hour Trend CMP Pain control with IV Tylenol as needed Nausea control Zofran as needed Ultrasound pending #HyponatremiaNA 132, suspect hypovolemic hyponatremia with poor p.o. intake. Fluids as above Anticipate to improve with IVF Trend BMP [facility] - Immunocompromise on Humira, twice monthly - most recent injection 02/03 #Cirrhosisfollows with [facility] hepatology. AP CT showed portal venous hypertension which patient has known history of. Known portal gastropathy/grade 1 esophageal varices. #OSACPAP at bedtime VTE ppx: SCDs, defer chemical with possible surgical management Dispo: MedSur Admission and Anticipated Discharge Date Admission Date: 02/06/25 History of Present Illness Chief Complaint: dizziness Primary Care Provider: Jaki Handley DO Patient is a 59-year-old male with past medical history of Crohn's disease on Humira, liver cirrhosis with grade 1 esophageal varices, KELLY on CPAP, GERD, BPH. Patient presented due to abdominal pain, fever, and chills that began on Friday and was found to have acute cholecystitis with a T bilirubin 2.2. He is being admitted for IV antibiotics and to have surgery eval. Patient seen at bedside With his present. He stated that since Friday he has had right lower quadrant abdominal pain as well as fevers and chills. He did not take his temperature at home. He thought it might have been a Crohn's flareup so he took Benadryl and Tylenol at home, which typically relieve his Crohn's flareups, which did not help his symptoms. Pain does get worse with eating however patient has not been able to eat or drink much. He endorses nausea but no vomiting. He also endorses yellow diarrhea since Friday, denies any hematochezia. He denies any chest pain or shortness of breath. He denies nicotine use. He does occasionally drink alcohol, did have a beverage last . He did take his home medications today, has discontinued many of them including metoprolol and spironolactone. He still uses CPAP for sleep apnea. He wishes to be full code. Allergies Allergy/AdvReac Type Severity Reaction Status Date / Time azathioprine AdvReac Intermediate Neuro Verified 12/16/24 13:35 changes, flu-like symptoms Home Medications Medication Instructions Recorded Confirmed Type cyanocobalamin (vitamin B-12) 5,000 mcg IM WK 11/26/18 12/16/24 History 1,000 mcg/mL injection solution multivitamin 1 tab PO QAM 11/26/18 12/16/24 History adalimumab 40 mg/0.8 mL 40 mg subcut Q14D 04/19/21 12/16/24 History subcutaneous pen kit (Humira Pen) folic acid 400 mcg tablet 0.4 mg PO BID #30 tabs 04/19/21 12/16/24 Rx insulin syringe-needle U-100 1 mL #100 ea 04/19/21 12/16/24 Rx 30 gauge x 1/2" (BD Insulin Syringe Ultra-Fine) omega 6-ahl-hev-fish oil 1,200 mg 1 cap PO BID #60 caps 04/19/21 12/16/24 Rx (144 mg-216 mg) capsule (Fish Oil) saw palmetto 450 mg capsule 900 mg (2 x 450 mg) PO BID #60 caps 04/19/21 12/16/24 Rx zinc acetate 50 mg (zinc) capsule 50 mg PO QAM 06/22/21 12/16/24 History (Galzin) albuterol sulfate 90 mcg/actuation 2 puff inhalation Q6H PRN 11/19/21 12/16/24 Rx aerosol inhaler shortness of breath or wheezing #18 grams inhalational spacing device #10 ea 11/19/21 12/16/24 Rx (Aerochamber MV spacer) [place] 1 tab PO BID 08/30/22 12/16/24 History tramadol 50 mg tablet 50 mg PO Q6H PRN pain #10 tabs 09/03/22 12/16/24 Rx magnesium oxide 400 mg PO DAILY 11/21/22 12/16/24 History jrjiokbq-bpygyo-dxf-dvw-jep-lupn-horse 1 tab PO BID 01/23/23 12/16/24 History 100 mg-100 mg-100 mg-125 mg tab ginkgo biloba 60 mg capsule 60 mg PO QAM 03/10/23 12/16/24 History ondansetron HCl 8 mg tablet 8 mg PO Q12H PRN nausea and 07/26/24 12/16/24 Rx vomiting 6 days #12 tabs budesonide 0.5 mg/2 mL suspension 0.5 mg (2 mL) inhalation DAILY 30 08/06/24 12/16/24 Rx for nebulization days #60 mL acetaminophen 500 mg tablet 1,000 mg PO BID PRN 09/03/24 12/16/24 History celecoxib 200 mg capsule (Celebrex) 200 mg PO QAM PRN 09/03/24 12/16/24 History comp.stocking,knee,long,medium #12 ea 09/03/24 12/16/24 Rx cyclosporine 0.05 % eye drops in a 1 drp OPB BID PRN 09/03/24 12/16/24 History dropperette (Restasis) fenugreek seed extract 500 mg 500 mg PO BID 09/03/24 12/16/24 History capsule cholecalciferol (vitamin D3) 1,250 50,000 unit PO Q7D #14 caps 10/26/24 12/16/24 Rx mcg (50,000 unit) capsule Auto Titrating CPAP See Rx Instructions .Route 12/08/24 12/16/24 Rx .COMPLEX #1 ea Past Med/Surg History Problem List (Updated 02/06/25 @ 00:24 by Martha Machuca PA-C) Hyponatremia Acute cholecystitis Cholelithiasis (Acute) Right sided abdominal pain (Acute) Hypertriglyceridemia BMI 40.0-44.9, adult Morbid (severe) obesity due to excess calories Diastolic dysfunction Hypertrophy of both inferior nasal turbinates 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 Esophageal varices (08/2023) Grade 1, EGD Aug 2023 Liver cirrhosis Arthritis associated with inflammatory bowel disease Urinary urgency Venous insufficiency (chronic) (peripheral) Idiopathic polyneuropathy Cholelithiasis Hepatic steatosis Sleep apnea H/O attention deficit disorder Lower urinary tract symptoms (LUTS) Allergic rhinitis Osteoarthritis BPH (benign prostatic hyperplasia) GERD (gastroesophageal reflux disease) Hypertension Crohn's disease Follows with GI Medical History Left maxillary sinusitis History of anesthesia reaction "has had wonky breathing issues after surgery in the past, his blood oxygen levels seem to drop and they have a hard time keeping them up without oxygen. 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 Idiopathic polyneuropathy Hypertension Hepatic steatosis Hx of attention deficit hyperactivity disorder GERD (gastroesophageal reflux disease) Hx of esophageal varices Grade 1, EGD Aug 2023 > procedure completed in [place] Dysphagia Crohn's disease Sleep apnea CPAP History of COVID-19 06/2021: loss taste/smell, SOB, chest congestion > resolved Hx of tuberculosis s/p INH therapy x 1 yr (~2007) Bipolar disorder Rotator cuff tear, right Surgical History S/P sinus surgery (07/27/24) H/O unilateral orchiectomy History of esophagogastroduodenoscopy (EGD) Hx of colonoscopy 2023 S/P orchiectomy (08/2022) Left Hx of knee surgery Knee cap "put back in place" S/P arthroscopy of left shoulder rotator cuff repair History of arthroscopy of right shoulder rotator cuff repair History of total knee replacement Right History of cystoscopy Hx of vasectomy History of herniorrhaphy Umbilical hernia History of appendectomy H/O resection of small bowel (2008) History of tooth extraction History of tonsillectomy and adenoidectomy Family History Mother Diabetes Hypertension Multiple sclerosis Father Diabetes Hypertension Skin cancer Dementia Parkinson disease Other No family history of adverse response to anesthesia No family history of bleeding disorder Denies family history of Ovarian cancer Prostate cancer Myocardial infarction Breast cancer Colorectal cancer Social History Smoking Status: Former smoker Tobacco Type: Cigarettes Age Started Using Tobacco: 19; Age Quit Using Tobacco: 45; packs per day: 1; Second Hand Exposure: No; Do You Dip or Chew Tobacco: No; Hx Alcohol Use: Yes Alcohol type: beer and hard liquor Hx Substance Use: No Preferred Language: Mac[place] Communication Ability: Effective Visual Impairment: No Limitations Hearing Ability: Normal Bureau Director Required: No Beliefs That Will Affect Care: None marital status: Current Living Situation: Spouse Current Living Situation Comment: lives with current occupational status: retired current occupation: retired How many Children do You have: 5 Feels Safe at Home: Yes Childhood Exposure to Second-Hand Smoke: Yes Diet: regular Diet Comment: regular/ low residue caffeine: Yes (Coffee x 3 per day) during the past year weight has: decreased > 10 lbs Dental Care, Regularly: No Physical Activity Frequency: Daily Seatbelt Use: sometimes Sunscreen Use: Yes Assistive Devices: CPAP and Glasses Review of Systems Review of Systems: See HPI Physical Exam Physical Exam: The patient is awake, alert and oriented 3, well developed and well nourished, normocephalic and atraumatic, in no acute distress. Non-toxic appearing. HEENT- EOMI, mucous membranes moist. Hearing grossly intact. Heart-normal S1 and S2. No murmurs, rubs or gallops. Lungs-clear bilaterally, no respiratory distress, no accessory muscle use. Abdomen-normal bowel sounds and soft. No ascites noted. Tender to RUQ and RLLQ. Extremities- no clubbing, cyanosis, or edema. Rheumatologic-normal range of motion. Psychiatric-normal affect. Results & Data Results & Data Vital Signs (Past 12 Hours) Vital Signs Temp Pulse Pulse Resp BP BP Pulse Ox 02/05/25 23:33 89 02/05/25 23:00 80 16 109/63 95 02/05/25 21:18 97 H 16 111/76 93 02/05/25 19:58 104 H 16 94 02/05/25 19:41 106 H 02/05/25 19:21 36.7 C 105 H 20 121/80 94 02/05/25 19:18 02/05/25 19:18 104 H 18 119/71 94 O2 Del Method 02/05/25 23:33 02/05/25 23:00 Room Air 02/05/25 21:18 Room Air 02/05/25 19:58 Room Air 02/05/25 19:41 02/05/25 19:21 Room Air 02/05/25 19:18 Room Air 02/05/25 19:18 Room Air Laboratory Results reviewed CBC, CMP, UA Diagnostic Findings reviewed AP CT Medications Administered EDZosyn 4.5G IV, Zofran 4 Mg IV, Tylenol 1G IV, 1L NSS bolus ECG Additional Comments: Sinus rhythm with PACs, rate 98 QTc 446 Code Status & VTE Plan Code Status full VTE Prophylaxis Plan VTE Prophylaxis will be ordered: Yes Supervising Physician Co-Signing Physician Notes Patient seen and examined, chart reviewed, case discussed with Martha Garza PA-C and I agree with the assessment and plan as above except as otherwise noted Labs and images reviewed Tristen is a 59-year-old male with a history of Crohn's who presents to the ER with abdominal pain. Has a chronically elevated bilirubin. On ER evaluation he does not have a leukocytosis but does have ongoing right upper quadrant pain worse on palpation. CTA/P shows 6 mm gallbladder wall thickening and surrounding fluid suspicious for acute cholecystitis. This was discussed by the ER with surgery, is recommended for medical admission and antibiotics and surgical consultation. He does have a history of Crohn's, no acute inflammatory changes of the bowel are noted. He does not have a transaminitis. Patient admitted on Zosyn, surgical consultation placed, and gallbladder ultrasound is pending. Agree with above PG Care Time/CCT Total # of Minutes Spent Total Time Spent with Patient: Total time spent is greater than 50% in coordination of care (as documented) at patient's floor/unit and/or counseling patient: Coding Level of Care Code 40779 INT INP/OBS CARE 3/75MIN Diagnoses Acute cholecystitis K81.0 Hyponatremia E87.1 Crohn's disease K50.919 Digestive disease complication type: unspecified complication Gastrointestinal tract location: unspecified location Liver cirrhosis K74.60 (3) Crohn's disease Digestive disease complication type: unspecified complication Gastrointestinal tract location: unspecified location Qualified Code(s): K50.919 - Crohn's disease, unspecified, with unspecified complications
[2025-02-06] MEDS: LACTATED RINGER'S 1,000 ML IV SCH (01:04)
[2025-02-06] MEDS ORDERED: DOCUSATE SODIUM 100 MG CAP PO PRN (02:14)
[2025-02-06] MEDS ORDERED: ONDANSETRON INJ 2 MG/ML 2 ML VIAL IV PRN (02:14)
[2025-02-06] MEDS ORDERED: ALBUTEROL HFA 8 GM INHALER INH PRN (02:14)
[2025-02-06] MEDS ORDERED: MELATONIN 3 MG TAB PO PRN (02:14)
--- NOTE | 2025-02-06 03:37 | Ultrasound Report ---
EXAM: US gallbladder CLINICAL HISTORY: ?acute [place] on CT TECHNIQUE: Limited ultrasound of the liver and gallbladder (RUQ) was performed in greyscale and Doppler. COMPARISON: No prior studies are available for comparison. FINDINGS: Liver: Liver size: Mildly enlarged, the right lobe measuring 20.6 cm, displays heterogenous echotexture with nodular outlines no definite focal lesions. Hepatic vasculature appears normal. Gallbladder: The gallbladder is distended with multiple calculi within the lumen of the gallbladder. The wall of the gallbladder appeared edematous and thickened, wall thickness of about 4.2 mm. A streak of pericholecystic fluid is seen. Comet tail artifact also noted along the nondependent wall of the gallbladder findings are likely to represent acute, on top of chronic, cholecystitis associated with adenomyomatosis. Please correlate clinically, and follow-up is advised. Biliary Tree: Common bile duct diameter: [5 mm].The common bile duct is within normal limits in caliber and not dilated evidence of choledocholithiasis or biliary obstruction. Right kidney is normal in size measuring 13.5 centimeters sin agittal diameter with normal parenchymal thickness and normal corticomedullary differentiation, no hydronephrosis or stones small cyst is seen near the lower pole, measuring about 1.7 x 1.4 x 1.4 cm with no septations no calcifications and no sizable soft tissue component IMPRESSION: 1. Parenchyma to his liver disease [early cirrhotic changes] with no focal lesions. 2. The gallbladder is distended with multiple calculi within the lumen of the gallbladder. The wall of the gallbladder appeared edematous and thickened, wall thickness of about 4.2 mm. A streak of pericholecystic fluid is seen. Comet tail artifact also noted along the nondependent wall of the gallbladder findings are likely to represent acute, on top of chronic, cholecystitis associated with adenomyomatosis. Please correlate clinically, and follow-up is advised. 3. Right renal benign-looking cyst. Electronically signed by Yasir Garcia 02-06-2025 03:36 AM
[2025-02-06] MEDS: PIPERACILLIN/TAZOBACTAM 4.5 GM/100 ML BAG IV SCH (05:37)
[2025-02-06] MEDS: ACETAMINOPHEN 1,000 MG/100 ML VIAL IV PRN (05:42)
[2025-02-06 06:52] LABS: Alanine Aminotransferase 21.0 U/L (7-52); Albumin Globulin Ratio 1.4 (0.9-2); Alkaline Phosphatase 52.0 U/L (34-104); Anion Gap 5.0 (3-11); Bilirubin,Total 1.6 mg/dl (0.2-1.0); Blood Urea Nitrogen 12.0 mg/dl (6-23); Calcium 8.0 mg/dl (8.6-10.3); Carbon Dioxide 29.0 mmol/L (21-32); Chloride 102.0 mmol/L (98-107); Creatinine Clr Calc Pharmacy 117.1 ml/min; Globulin 2.4 gm/dl (2.5-4.0); Glucose 106.0 mg/dl (70-99(Fasting)); Hematocrit (blood only) 38.5 % (42.0-52.0); Hemoglobin 13.3 g/dl (14.0-18.0); Magnesium 1.6 mg/dl (1.7-2.4); Mean Corpuscular Hemoglobin 28.7 pg (25.0-34.0); Mean Corpuscular Volume 83.0 fL (80.0-100.0); Platelet Count 72 K/uL (130-400); Potassium 3.4 mmol/L (3.5-5.1); RDW Standard Deviation 44.6 fL (36.4-46.3); Red Blood Count 4.64 M/uL (4.70-6.10); Sodium 136.0 mmol/L (136-145); Total Protein 5.8 gm/dl (6.0-8.3); White Blood Count 4.09 K/ul (4.8-10.8)
[2025-02-06] MEDS: BUDESONIDE 0.5 MG/2 ML VIAL (PULMICORT) INH SCH (07:01)
[2025-02-06 07:26] LABS: ALC (manual) 1.92 K/uL (1.2-3.4); ANC (manual) 1.92 K/uL (1.4-6.5); Reactive Lymphocytes # (manual) 1.31 K/uL; Reactive Lymphocytes % (manual) 32 %
--- NOTE | 2025-02-06 10:06 | Hospitalist Progress Note ---
Date of Service February 06, 2025 Assessment & Plan (1) Acute cholecystitis: (2) Hyponatremia: (3) Crohn's disease: (4) Liver cirrhosis: Plan Patient is a 59-year-old male with past medical history of Crohn's disease on Humira, liver cirrhosis with grade 1 esophageal varices, KELLY on CPAP, GERD, BPH. Patient presented due to abdominal pain, fever, and chills that began on Friday and was found to have acute cholecystitis with a T bilirubin 2.2. He was admitted for IV antibiotics and to have surgery eval. #Acute cholecystitis CT A/P showed multiple noncalcified gallstones with gallbladder wall thickening (6mm) suggestive of acute cholecystitis. Gallb ladder ultrasound with findings consistent with acute on chronic cholecystitis associated with adenomyomatosis. LFTs on admission showed T. bili 2.2 now at 1.6, otherwise WNL. Nonseptic presentation, no leukocytosis, VSS, afebrile. RUQ pain, worse with palpation. Surgery consulted - continue IV antibiotics, will start clear liquid diet for now. Can advance to low fat as tolerated Continue Zosyn Continue IVF with LR at 80 mL/hour x 2 L Pain control with IV Tylenol as needed Nausea control Zofran as needed If improves with antibiotics, could have outpatient procedure with his [facility] team given his history of cirhosis #Hyponatremia Na 132 on admission, suspect hypovolemic hyponatremia with poor p.o. intake. Improved to 136 following IV fluids #Crohn's disease follows with [facility] Dr. Jensen. - Immunocompromise on Humira, twice monthly - most recent injection 02/03 #Cirrhosis follows with [facility] hepatology. CT A/P showed portal venous hypertension which patient has known history of. Known portal gastropathy/grade 1 esophageal varices. #KELLY CPAP at bedtime VTE ppx: SCDs, defer chemical with possible surgical management Dispo: Pending symptom improvement of acute antonietta Admission and Anticipated Discharge Date Admission Date: February 06, 2025 Supervising Physician Co-Signing Physician Notes Attending Attestation - Chart reviewed, care plan d/w VIBHA Herzog. I agree w/ the schumacher components of her documentation. appreciate gen surg consultation. Jf Miller MD Subjective Patient seen and evaluated a bedside. He reports feeling better, notes his abdominal pain is well-controlled at this time. He denies nausea, fever, chills. He reports general surgery just saw him and said he can have a diet because they are not doing surgery today. He denies any additional complaints or concerns at this time. Physical Exam Physical Exam: General: No acute distress, nondiaphoretic, well-developed, well-nourished. Cardiac: Regular rate and rhythm without murmurs gallops or rubs. Pulm: Clear to auscultation bilaterally without wheezes, rales or rhonchi. Normal respiratory effort. 95% on room air. Abdominal: Soft, nondistended. Tender to palpation of RUQ and RLQ. Positive bowel sounds x 4. Neuro: A&O x3. No focal neurological deficits. Results & Data Results & Data Vital Signs (Past 12 Hours) Vital Signs Temp Pulse Pulse Resp BP Pulse Ox O2 Del Method 02/06/25 07:19 98.2 F 83 17 102/67 94 Room Air 02/06/25 07:02 83 15 96 Room Air 02/06/25 03:17 76 22 97 02/06/25 02:38 Room Air, CPAP 02/06/25 02:15 97.5 F L 79 14 127/81 92 Room Air 02/06/25 01:43 98.1 F 76 18 121/79 94 Room Air 02/05/25 23:33 89 02/05/25 23:00 80 16 109/63 95 Room Air Laboratory Results Reviewed CBC with differential Reviewed CMP, chemistries Reviewed UA Diagnostic Findings Reviewed CT A/P Reviewed GB US Abdomen/Pelvis CT 02/05/25 19:58 Exam(s): CT ABDOMEN + PELVIS With Contrast IV Amt: 90 ml optiray 320 EXAM: CT Abdomen and Pelvis With Intravenous Contrast CLINICAL HISTORY: Reason for exam: RLQ pain; dysuria, h/o Crohn's disease TECHNIQUE: Axial computed tomography images of the abdomen and pelvis with intravenous contrast. CTDI is 28.14 mGy and DLP is 1415.4 mGy-cm. Automated exposure control was utilized for the study. A dose lowering technique was utilized adhering to the principles of ALARA. CONTRAST: Patient received 90 ml optiray 320 of IV contrast COMPARISON: 03/10/2023 FINDINGS: Lung bases: Unremarkable. No mass. No consolidation. ABDOMEN: Liver: The liver is enlarged measuring 21 cm craniocaudad. No focal liver mass lesion is seen. Gallbladder and bile ducts: There are multiple noncalcified gallstones in the dependent portion of the gallbladder as well as 6 mm gallbladder wall thickening and surrounding fluid. No ductal dilation. Pancreas: Unremarkable. No mass. No ductal dilation. Spleen: The spleen is enlarged measuring 20 x 20.8 x 12.7 cm 2.77 L, increased since previous when it measured 16 x 10.5 x 16.5 cm 1.45 L. Adrenals: Unremarkable. No mass. Kidneys and ureters: Nonobstructive 3 mm caliceal calculus in the left kidney. No hydronephrosis or ureterolithiasis is seen involving either kidney. Stomach and bowel: Unremarkable. No obstruction. No mucosal thickening. PELVIS: Appendix: No findings to suggest acute appendicitis. Bladder: Unremarkable. No mass. Reproductive: Unremarkable as visualized. ABDOMEN and PELVIS: Intraperitoneal space: Bowel loops are nondilated. There is a staple line at a small bowel to mid right colon anastomosis. No pneumoperitoneum, free fluid, or acute inflammatory changes are seen involving the bowel. Bones/joints: Mild degenerative changes in the spine. No acute fracture or subluxation. Soft tissues: Unremarkable. Vasculature: The portal vein is dilated measuring 19 mm suggesting portal venous hypertension. No ascites. Lymph nodes: Unremarkable. No enlarged lymph nodes. IMPRESSION: 1. The portal vein is dilated measuring 19 mm suggesting portal venous hypertension. No ascites. 2. There are multiple noncalcified gallstones in the dependent portion of the gallbladder as well as 6 mm gallbladder wall thickening and surrounding fluid. Consider acute cholecystitis. 3. The spleen is enlarged measuring 20 x 20.8 x 12.7 cm 2.77 L, increased since previous when it measured 16 x 10.5 x 16.5 cm 1.45 L. 4. Bowel loops are nondilated. There is a staple line at a small bowel to mid right colon anastomosis. No pneumoperitoneum, free fluid, or acute inflammatory changes are seen involving the bowel. Electronically signed by: Christ Ruiz MD 02/05/25 23:28 PM Gallbladder Ultrasound 02/06/25 00:00 EXAM: US gallbladder CLINICAL HISTORY: ?acute [place] on CT TECHNIQUE: Limited ultrasound of the liver and gallbladder (RUQ) was performed in greyscale and Doppler. COMPARISON: No prior studies are available for comparison. FINDINGS: Liver: Liver size: Mildly enlarged, the right lobe measuring 20.6 cm, displays heterogenous echotexture with nodular outlines no definite focal lesions. Hepatic vasculature appears normal. Gallbladder: The gallbladder is distended with multiple calculi within the lumen of the gallbladder. The wall of the gallbladder appeared edematous and thickened, wall thickness of about 4.2 mm. A streak of pericholecystic fluid is seen. Comet tail artifact also noted along the nondependent wall of the gallbladder findings are likely to represent acute, on top of chronic, cholecystitis associated with adenomyomatosis. Please correlate clinically, and follow-up is advised. Biliary Tree: Common bile duct diameter: [5 mm].The common bile duct is within normal limits in caliber and not dilated evidence of choledocholithiasis or biliary obstruction. Right kidney is normal in size measuring 13.5 centimeters sin agittal diameter with normal parenchymal thickness and normal corticomedullary differentiation, no hydronephrosis or stones small cyst is seen near the lower pole, measuring about 1.7 x 1.4 x 1.4 cm with no septations no calcifications and no sizable soft tissue component IMPRESSION: 1. Parenchyma to his liver disease [early cirrhotic changes] with no focal lesions. 2. The gallbladder is distended with multiple calculi within the lumen of the gallbladder. The wall of the gallbladder appeared edematous and thickened, wall thickness of about 4.2 mm. A streak of pericholecystic fluid is seen. Comet tail artifact also noted along the nondependent wall of the gallbladder findings are likely to represent acute, on top of chronic, cholecystitis associated with adenomyomatosis. Please correlate clinically, and follow-up is advised. 3. Right renal benign-looking cyst. Electronically signed by Yasir Garcia 02-06-2025 03:36 AM PG Care Time/CCT Total # of Minutes Spent Total Time Spent with Patient: Total time spent is greater than 50% in coordination of care (as documented) at patient's floor/unit and/or counseling patient: Coding Level of Care Code 49290 SUB INP/OBS CARE 2/35MIN Diagnoses Acute cholecystitis K81.0 Hyponatremia E87.1 Crohn's disease K50.919 Digestive disease complication type: unspecified complication Gastrointestinal tract location: unspecified location Liver cirrhosis K74.60 (3) Crohn's disease Digestive disease complication type: unspecified complication Gastrointestinal tract location: unspecified location Qualified Code(s): K50.919 - Crohn's disease, unspecified, with unspecified complications
--- NOTE | 2025-02-06 12:14 | Electrocardiogram Report ---
Test Reason : Blood Pressure : */* mmHG Vent. Rate : 98 BPM Atrial Rate : 98 BPM P-R Int : 162 ms QRS Dur : 88 ms QT Int : 350 ms P-R-T Axes : 52 71 14 degrees QTcB Int : 446 ms Sinus rhythm with Premature atrial complexes with Aberrant conduction Low voltage QRS Borderline ECG When compared with ECG of 15-Apr-2024 11:24, Aberrant conduction is now Present T wave inversion now evident in Inferior leads Confirmed by Bob Fiore ([id number]) on 02/06/2025 12:14:47 PM Referred By: REFERRED SELF Confirmed By: Bob Fiore
[2025-02-06] MEDS: ACETAMINOPHEN 325 MG TAB PO PRN (12:25)
--- NOTE | 2025-02-06 15:39 | Surgery Consultation ---
Date of Consultation February 06, 2025 Assessment & Plan (1) Acute cholecystitis: I personally reviewed his imaging, c/w acute calculous cholecystitis, no evidence for CBD involvement on labs. T bili elevated at 2.2 in a patient with h/o cirrhosis secondary to medication. Continue with IV abx at this time May have low fat diet if he is able to tolerate Will see how how his symptoms are tomorrow. If this will get better with abx, he may proceed to his treating physicians in [place] for further management. History of Present Illness Attending Physician: Jf Miller MD History of Present Illness Patient is a 59-year-old male with past medical history of Crohn's disease on Humira and had a surgery for this, liver cirrhosis with grade 1 esophageal varices, KELLY on CPAP, GERD, BPH. Other PSHx includes an abdominal hernia repair. He obtains annual colonoscopies. Tristen presented due to abdominal pain, fever, and chills that began on Friday and was found to have acute c holecystitis with a T bilirubin 2.2. AST, ALT and Alk Phos all WNL. CT A/P and RUQ US hve revealed acute calculous cholecystitis with pericholecystic fluid and GB wall thickening seen on both studies. He is admitted to the medical service and a surgical consultation has been requested. Tristen explains that he has known he had GB issues as he has had prior GB attacks. He sees GI in [place] who recommended he hold off on surgery for his liver numbers to calm down so his surgery was held off. This particular time, he began having primarily RUQ pain on Friday and mild nausea. He states he has not been really able to eat well. Initially he thought this was a Crohn's attack and backed down his diet as he usually does but this did not resolve his symptoms. By Friday when he woke up, he began having chills. This am he says he feels better with decreased abdominal pain and better mental status. Allergies Allergy/AdvReac Type Severity Reaction Status Date / Time azathioprine AdvReac Intermediate Neuro Verified 12/16/24 13:35 changes, flu-like symptoms Home Medications Medication Instructions Recorded Confirmed Type cyanocobalamin (vitamin B-12) 5,000 mcg IM WK 11/26/18 12/16/24 History 1,000 mcg/mL injection solution multivitamin 1 tab PO QAM 11/26/18 12/16/24 History adalimumab 40 mg/0.8 mL 40 mg subcut Q14D 04/19/21 12/16/24 History subcutaneous pen kit (Humira Pen) folic acid 400 mcg tablet 0.4 mg PO BID #30 tabs 04/19/21 12/16/24 Rx insulin syringe-needle U-100 1 mL #100 ea 04/19/21 12/16/24 Rx 30 gauge x 1/2" (BD Insulin Syringe Ultra-Fine) omega 3-swo-bup-fish oil 1,200 mg 1 cap PO BID #60 caps 04/19/21 12/16/24 Rx (144 mg-216 mg) capsule (Fish Oil) saw palmetto 450 mg capsule 900 mg (2 x 450 mg) PO BID #60 caps 04/19/21 12/16/24 Rx zinc acetate 50 mg (zinc) capsule 50 mg PO QAM 06/22/21 12/16/24 History (Galzin) albuterol sulfate 90 mcg/actuation 2 puff inhalation Q6H PRN 11/19/21 12/16/24 Rx aerosol inhaler shortness of breath or wheezing #18 grams inhalational spacing device #10 ea 11/19/21 12/16/24 Rx (Aerochamber MV spacer) [place] 1 tab PO BID 08/30/22 12/16/24 History tramadol 50 mg tablet 50 mg PO Q6H PRN pain #10 tabs 09/03/22 12/16/24 Rx magnesium oxide 400 mg PO DAILY 11/21/22 12/16/24 History sxjjgeph-hxffbm-gig-noz-bku-magq-horse 1 tab PO BID 01/23/23 12/16/24 History 100 mg-100 mg-100 mg-125 mg tab ginkgo biloba 60 mg capsule 60 mg PO QAM 03/10/23 12/16/24 History ondansetron HCl 8 mg tablet 8 mg PO Q12H PRN nausea and 07/26/24 12/16/24 Rx vomiting 6 days #12 tabs budesonide 0.5 mg/2 mL suspension 0.5 mg (2 mL) inhalation DAILY 30 08/06/24 12/16/24 Rx for nebulization days #60 mL acetaminophen 500 mg tablet 1,000 mg PO BID PRN 09/03/24 12/16/24 History celecoxib 200 mg capsule (Celebrex) 200 mg PO QAM PRN 09/03/24 12/16/24 History comp.stocking,knee,long,medium #12 ea 09/03/24 12/16/24 Rx cyclosporine 0.05 % eye drops in a 1 drp OPB BID PRN 09/03/24 12/16/24 History dropperette (Restasis) fenugreek seed extract 500 mg 500 mg PO BID 09/03/24 12/16/24 History capsule cholecalciferol (vitamin D3) 1,250 50,000 unit PO Q7D #14 caps 10/26/24 12/16/24 Rx mcg (50,000 unit) capsule Auto Titrating CPAP See Rx Instructions .Route 12/08/24 12/16/24 Rx .COMPLEX #1 ea Patient History Medical History Left maxillary sinusitis History of anesthesia reaction "has had wonky breathing issues after surgery in the past, his blood oxygen levels seem to drop and they have a hard time keeping them up without oxygen. 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 Idiopathic polyneuropathy Hypertension Hepatic steatosis Hx of attention deficit hyperactivity disorder GERD (gastroesophageal reflux disease) Hx of esophageal varices Grade 1, EGD Aug 2023 > procedure completed in [place] Dysphagia Crohn's disease Sleep apnea CPAP History of COVID-19 06/2021: loss taste/smell, SOB, chest congestion > resolved Hx of tuberculosis s/p INH therapy x 1 yr (~2007) Bipolar disorder Rotator cuff tear, right Surgical History S/P sinus surgery (07/27/24) H/O unilateral orchiectomy History of esophagogastroduodenoscopy (EGD) Hx of colonoscopy 2023 S/P orchiectomy (08/2022) Left Hx of knee surgery Knee cap "put back in place" S/P arthroscopy of left shoulder rotator cuff repair History of arthroscopy of right shoulder rotator cuff repair History of total knee replacement Right History of cystoscopy Hx of vasectomy History of herniorrhaphy Umbilical hernia History of appendectomy H/O resection of small bowel (2008) History of tooth extraction History of tonsillectomy and adenoidectomy Family History Mother Diabetes Hypertension Multiple sclerosis Father Diabetes Hypertension Skin cancer Dementia Parkinson disease Other No family history of adverse response to anesthesia No family history of bleeding disorder Denies family history of Ovarian cancer Prostate cancer Myocardial infarction Breast cancer Colorectal cancer Social History Smoking Status: Former smoker Tobacco Type: Cigarettes Age Started Using Tobacco: 19; Age Quit Using Tobacco: 45; packs per day: 1; Second Hand Exposure: No; Do You Dip or Chew Tobacco: No; Hx Alcohol Use: Yes Alcohol type: hard liquor Hx Substance Use: No Preferred Language: Khmer Communication Ability: Effective Visual Impairment: No Limitations Hearing Ability: Normal 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 Beliefs That Will Affect Care: Rastafari Rastafari Beliefs: Faith marital status: Current Living Situation: Spouse Current Living Situation Comment: lives with current occupational status: retired current occupation: retired How many Children do You have: 5 Other Information That Helps Us Care for You: No Feels Safe at Home: Yes Safety Concerns: Feels Safe At This Time Childhood Exposure to Second-Hand Smoke: Yes Diet: regular Diet Comment: regular/ low residue caffeine: Yes (Coffee x 3 per day) during the past year weight has: decreased > 10 lbs Dental Care, Regularly: No Physical Activity Frequency: Daily Seatbelt Use: sometimes Sunscreen Use: Yes Assistive Devices: CPAP and Glasses Review of Systems Review of Systems: All systems reviewed & are unremarkable except as noted in HPI & below Physical Exam Constitutional: + ill appearing (chronic) and + obese; n ot in distress and not diaphoretic Respiratory: normal respiratory effort; no respiratory distress, no labored breathing and does not use accessory muscles Cardiovascular: Rate/Rhythm: regular rate; not tachycardic Extremities: no edema Gastrointestinal (Abdomen): Inspection/Auscultation: + abdomen distended Percussion/Palpation: + abdomen tender (RUQ), + guarding (Voluntary) and abdomen soft; abdomen not rigid Psychiatric: Orientation: alert and oriented x 3 Results & Data Vital Signs (Past 12 Hours) Vital Signs Temp Pulse Resp BP Pulse Ox O2 Del Method 02/06/25 15:26 36.8 C 72 18 119/75 95 Room Air 02/06/25 08:23 Room Air 02/06/25 07:19 36.8 C 83 17 102/67 94 Room Air 02/06/25 07:02 83 15 96 Room Air Diagnostic Findings Exam(s): CT ABDOMEN + PELVIS With Contrast IV Amt: 90 ml optiray 320 EXAM: CT Abdomen and Pelvis With Intravenous Contrast CLINICAL HISTORY: Reason for exam: RLQ pain; dysuria, h/o Crohn's disease TECHNIQUE: Axial computed tomography images of the abdomen and pelvis with intravenous contrast. CTDI is 28.14 mGy and DLP is 1415.4 mGy-cm. Automated exposure control was utilized for the study. A dose lowering technique was utilized adhering to the principles of ALARA. CONTRAST: Patient received 90 ml optiray 320 of IV contrast COMPARISON: 03/10/2023 FINDINGS: Lung bases: Unremarkable. No mass. No consolidation. ABDOMEN: Liver: The liver is enlarged measuring 21 cm craniocaudad. No focal liver mass lesion is seen. Gallbladder and bile ducts: There are multiple noncalcified gallstones in the dependent portion of the gallbladder as well as 6 mm gallbladder wall thickening and surrounding fluid. No ductal dilation. Pancreas: Unremarkable. No mass. No ductal dilation. Spleen: The spleen is enlarged measuring 20 x 20.8 x 12.7 cm 2.77 L, increased since previous when it measured 16 x 10.5 x 16.5 cm 1.45 L. Adrenals: Unremarkable. No mass. Kidneys and ureters: Nonobstructive 3 mm caliceal calculus in the left kidney. No hydronephrosis or ureterolithiasis is seen involving either kidney. Stomach and bowel: Unremarkable. No obstruction. No mucosal thickening. PELVIS: Appendix: No findings to suggest acute appendicitis. Bladder: Unremarkable. No mass. Reproductive: Unremarkable as visualized. ABDOMEN and PELVIS: Intraperitoneal space: Bowel loops are nondilated. There is a staple line at a small bowel to mid right colon anastomosis. No pneumoperitoneum, free fluid, or acute inflammatory changes are seen involving the bowel. Bones/joints: Mild degenerative changes in the spine. No acute fracture or subluxation. Soft tissues: Unremarkable. Vasculature: The portal vein is dilated measuring 19 mm suggesting portal venous hypertension. No ascites. Lymph nodes: Unremarkable. No enlarged lymph nodes. IMPRESSION: 1. The portal vein is dilated measuring 19 mm suggesting portal venous hypertension. No ascites. 2. There are multiple noncalcified gallstones in the dependent portion of the gallbladder as well as 6 mm gallbladder wall thickening and surrounding fluid. Consider acute cholecystitis. 3. The spleen is enlarged measuring 20 x 20.8 x 12.7 cm 2.77 L, increased since previous when it measured 16 x 10.5 x 16.5 cm 1.45 L. 4. Bowel loops are nondilated. There is a staple line at a small bowel to mid right colon anastomosis. No pneumoperitoneum, free fluid, or acute inflammatory changes are seen involving the bowel. Electronically signed by: Christ Ruiz MD 02/05/25 23:28 PM [place], [place] [phone] Ultrasound Report Patient: TRISTEN ESPINOZA Admit Date: 02/06/25 MR#: [id number] Address1: [address] [place] [address] Acct ID:[id number] Address2: Date: 1965 [facility] Zip: [place] [address] Age: 59 Location: 3N Sex: M Room/Bed: N3- Att Phy: Jf Miller MD Diagnosis: ACUTE CHOLECYSTITIS Shantal Phy: Jaki Handley DO Service Date: 02/06/25 Fam Phy: Interpreting Phy: [facility]: Kevin Levine MD Ordering Phy: Ernst Baum MD cc: ~ ADDENDUM Addendum Report EXAM: US gallbladder ADDENDUM: The results were sent successfully via fax at [phone] at 3:32 AM OIL PRODUCER, 02/06/2025. Electronically signed by Yasir Garcia 02-06-2025 04:59 AM ADDENDUM END EXAM: US gallbladder CLINICAL HISTORY: ?acute [place] on CT TECHNIQUE: Limited ultrasound of the liver and gallbladder (RUQ) was performed in greyscale and Doppler. COMPARISON: No prior studies are available for comparison. FINDINGS: Liver: Liver size: Mildly enlarged, the right lobe measuring 20.6 cm, displays heterogenous echotexture with nodular outlines no definite focal lesions. Hepatic vasculature appears normal. Gallbladder: The gallbladder is distended with multiple calculi within the lumen of the gallbladder. The wall of the gallbladder appeared edematous and thickened, wall thickness of about 4.2 mm. A streak of pericholecystic fluid is seen. Comet tail artifact also noted along the nondependent wall of the gallbladder findings are likely to represent acute, on top of chronic, cholecystitis associated with adenomyomatosis. Please correlate clinically, and follow-up is advised. Biliary Tree: Common bile duct diameter: [5 mm].The common bile duct is within normal limits in caliber and not dilated evidence of choledocholithiasis or biliary obstruction. Right kidney is normal in size measuring 13.5 centimeters sin agittal diameter with normal parenchymal thickness and normal corticomedullary differentiation, no hydronephrosis or stones small cyst is seen near the lower pole, measuring about 1.7 x 1.4 x 1.4 cm with no septations no calcifications and no sizable soft tissue component IMPRESSION: 1. Parenchyma to his liver disease [early cirrhotic changes] with no focal lesions. 2. The gallbladder is distended with multiple calculi within the lumen of the gallbladder. The wall of the gallbladder appeared edematous and thickened, wall thickness of about 4.2 mm. A streak of pericholecystic fluid is seen. Comet tail artifact also noted along the nondependent wall of the gallbladder findings are likely to represent acute, on top of chronic, cholecystitis associated with adenomyomatosis. Please correlate clinically, and follow-up is advised. 3. Right renal benign-looking cyst. Electronically signed by Yasir Garcia 02-06-2025 03:36 AM Dictated: 02/06/25 0058 Transcribed: PG Care Time/CCT Total # of Minutes Spent Total Time Spent with Patient: Total time spent is greater than 50% in coordination of care (as documented) at patient's floor/unit and/or counseling patient: Coding Level of Care Code 79531 IN/OBS CONSULT LVL 3,45M Diagnoses Acute cholecystitis K81.0
[2025-02-07 07:14] VITALS: BP 115/81; TEMP 98.8
[2025-02-07 07:22] VITALS: PULSE 81; RESP 16; O2SAT 95
[2025-02-07 08:00] LABS: Hematocrit (blood only) 36.9 % (42.0-52.0); Hemoglobin 12.8 g/dl (14.0-18.0); Mean Corpuscular Hemoglobin 28.5 pg (25.0-34.0); Mean Corpuscular Volume 82.2 fL (80.0-100.0); Platelet Count 84 K/uL (130-400); RDW Standard Deviation 43.6 fL (36.4-46.3); Red Blood Count 4.49 M/uL (4.70-6.10); White Blood Count 3.66 K/ul (4.8-10.8)
[2025-02-07 08:13] LABS: Alanine Aminotransferase 26.0 U/L (7-52); Albumin Globulin Ratio 1.5 (0.9-2); Alkaline Phosphatase 53.0 U/L (34-104); Anion Gap 4.0 (3-11); Bilirubin,Total 1.3 mg/dl (0.2-1.0); Blood Urea Nitrogen 7.0 mg/dl (6-23); Calcium 8.0 mg/dl (8.6-10.3); Carbon Dioxide 30.0 mmol/L (21-32); Chloride 103.0 mmol/L (98-107); Creatinine Clr Calc Pharmacy 159.9 ml/min; Globulin 2.3 gm/dl (2.5-4.0); Glucose 105.0 mg/dl (70-99(Fasting)); Potassium 3.5 mmol/L (3.5-5.1); Sodium 137.0 mmol/L (136-145); Total Protein 5.8 gm/dl (6.0-8.3)
[2025-02-07 08:36] LABS: ALC (manual) 2.05 K/uL (1.2-3.4); ANC (manual) 1.21 K/uL (1.4-6.5); Reactive Lymphocytes # (manual) 1.24 K/uL; Reactive Lymphocytes % (manual) 34 %
--- NOTE | 2025-02-07 09:13 | Hospitalist Progress Note ---
Date of Service February 07, 2025 Assessment & Plan (1) Acute cholecystitis: (2) Hyponatremia: (3) Crohn's disease: (4) Liver cirrhosis: Plan Patient is a 59-year-old male with past medical history of Crohn's disease on Humira, liver cirrhosis with grade 1 esophageal varices, KELLY on CPAP, GERD, BPH. Patient presented due to abdominal pain, fever, and chills that began on Friday and was found to have acute cholecystitis with a T bilirubin 2.2. He was admitted for IV antibiotics and to have surgery eval. #Acute cholecystitis CT A/P showed multiple noncalcified gallstones with gallbladder wall thickening (6mm) suggestive of acute cholecystitis. Gallb ladder ultrasound with findings consistent with acute on chronic cholecystitis associated with adenomyomatosis. LFTs on admission showed T. bili 2.2 now at 1.6, otherwise WNL. Nonseptic presentation, no leukocytosis, VSS, afebrile. RUQ pain, worse with palpation. Surgery consulted - continue IV antibiotics, will start clear liquid diet for now. Can advance to low fat as tolerated Continue Zosyn Continue IVF with LR at 80 mL/hour x 2 L Pain control with IV Tylenol as needed Nausea control Zofran as needed If improves with antibiotics, could have outpatient procedure with his [facility] team given his history of cirhosis On full liquid diet, will advance to low fat if tolerate. Consideration to dc on Augmentin and follow up w/ [facility]? #Hyponatremia Na 132 on admission, suspect hypovolemic hyponatremia with poor p.o. intake. Improved to 136 following IV fluids K improved/stable Mag 1.6-- 2gm IV ordered and will repeat for completeness, ?no replacement yesterday #Crohn's disease follows with [facility] Dr. Jensen. - Immunocompromise on Humira, twice monthly - most recent injection 02/03 #Cirrhosis follows with [facility] hepatology. CT A/P showed portal venous hypertension which patient has known history of. Known portal gastropathy/grade 1 esophageal varices. #KELLY CPAP at bedtime VTE ppx: SCDs, defer chemical with possible surgical management Dispo: Pending symptom improvement of acute antonietta Admission and Anticipated Discharge Date Admission Date: February 06, 2025 Results & Data Results & Data Vital Signs (Past 12 Hours) Vital Signs Temp Pulse Resp BP Pulse Ox O2 Del Method 02/07/25 08:02 Room Air 02/07/25 07:21 81 16 95 Nasal Cannula 02/07/25 07:12 37.1 C 78 18 115/81 97 Room Air PG Care Time/CCT Total # of Minutes Spent Total Time Spent with Patient: Total time spent is greater than 50% in coordination of care (as documented) at patient's floor/unit and/or counseling patient: Coding Diagnoses Acute cholecystitis K81.0 Hyponatremia E87.1 Crohn's disease K50.919 Digestive disease complication type: unspecified complication Gastrointestinal tract location: unspecified location Liver cirrhosis K74.60 (3) Crohn's disease Digestive disease complication type: unspecified complication Gastrointestinal tract location: unspecified location Qualified Code(s): K50.919 - Crohn's disease, unspecified, with unspecified complications
--- NOTE | 2025-02-07 09:14 | Surgery Progress Note ---
<Statement entered by Jus Valadez, - 02/07/25 15:55> I have seen and examined this patient this am. I agree with this plan. Date of Service February 07, 2025 Assessment & Plan (1) Acute cholecystitis: Plan: Patient doing well and pain/symptoms have improved with IV antibiotics Continue with IV abx for now and can transition over to oral abx prior to discharge. Low fat diet ordered for this morning, if he is able to tolerate from a surgical standpoint he would be ok for discharge and follow up with his physicians in [place] for further management/surgical intervention in the near future. Continue medical management per primary team, surgery will follow. 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 Admission and Anticipated Discharge Date Admission Date: February 06, 2025 Subjective Patient seen and evaluated this morning, states he is feeling significantly better than previous Abdominal pain has improved, has tolerated low-fat full liquids over the last 24 hours without any issues VSS, afebrile, continues on IV ABX. LFTs WNL and T.bili downtrending to 1.3 Physical Exam Constitutional: WD/WN, vitals as above Respiratory: normal respiratory effort, lungs clear to auscultation Cardiovascular: Rate/Rhythm: regular rate Gastrointestinal (Abdomen): Abdomen soft, nondistended, minimal TTP in the RUQ. No rebound or guarding Skin: no rashes, warm and dry Results & Data Vital Signs (Past 12 Hours) Vital Signs Temp Pulse Resp BP Pulse Ox O2 Del Method 02/07/25 08:02 Room Air 02/07/25 07:21 81 16 95 Nasal Cannula 02/07/25 07:12 37.1 C 78 18 115/81 97 Room Air PG Care Time/CCT Total # of Minutes Spent Total Time Spent with Patient: Total time spent is greater than 50% in coordination of care (as documented) at patient's floor/unit and/or counseling patient: Coding [place] [address] SUB INP/OBS CARE 08/28MIN Patient Type Established History Problem Focused Exam Problem Focused Medical Decision Making Straight Forward Diagnoses Acute cholecystitis K81.0
--- NOTE | 2025-02-07 09:31 | Discharge Summary ---
Discharge Summary Date of Service February 07, 2025 Principal Dx & Hospital Course #1 = Principal Diagnosis (1) Acute cholecystitis: (2) Hyponatremia: (3) Crohn's disease: (4) Liver cirrhosis: Plan 59yo male with PMHx Crohn's disease (on Humira) liver cirrhosis with grade 1 esophageal varices, KELLY on CPAP, GERD, BPH presented for abdominal pain, fever/chills starting on FRIDAY. #Acute cholecystitis CTAP noting multiple noncalcified gallstones w/ GB wall thickening suggestive of acute cholecystis. Gallbladder ultrasound with findings consistent with acute on chronic cholecystitis associated with adenomyomatosis. LFTs on admission showed T. bili 2.2, normal otherwise. Lipase not checked Surgery consulted Placed on Zosyn IV, IVF support and pain control/antiemetics as needed Surgery recommending conservative treatment with antibiotics and had diet advanced to low fat without issue and not needing ongoing pain control. Discussed with patietn and surgery and tolerating advancement of diet and de cision to discharge on AUGMENTIN to complete the course. Discussed w/ supervising provider given on Humira/immunocompromised, decision to extend treatment to 14 days and f/u PCP/GI outpatient prior to resuming his Humira. Discussed to monitor for any fever/chills or worsening abdominal pain to return to the ER. TB down to 1.3 prior to dc. BM 02/07 Also to have f/u [facility] for cirrhosis as well #Hyponatremia Na 132 on admission, suspect hypovolemic hyponatremia with poor p.o. intake and IVF provided for hydration and normalized on repeat. Also notable patient had low K and normalized with replacement. Mag checked/IV replacement ordered and normalized on repeat testing. #Crohn's disease follows with [facility] Dr. Jensen. - Immunocompromise on Humira, twice monthly - most recent injection 02/03 and discussed as above to discuss w/ his provider prior to resuming his usual schedule. #Cirrhosis follows with [facility] hepatology. CT A/P showed portal venous hypertension which patient has known history of. Known portal gastropathy/grade 1 esophageal varices. F/u [facility] recommended #KELLY CPAP at bedtime Notes For Next Care Provider ENsure follow up with [facility] hepatology for cirrhosis. Monitor for any issues w/ conservative treatment for acute antonietta but doing well w/ abx and diet advancement Medication Changes From Visit Augmentin BID x 12 more days for total 14 day course. Admission HPI Per Admitting Provider Patient is a 59-year-old male with past medical history of Crohn's disease on Humira, liver cirrhosis with grade 1 esophageal varices, KELYL on CPAP, GERD, BPH. Patient presented due to abdominal pain, fever, and chills that began on Friday and was found to have acute cholecystitis with a T bilirubin 2.2. He is being admitted for IV antibiotics and to have surgery eval. Patient seen at bedside With his present. He stated that since Friday he has had right lower quadrant abdominal pain as well as fevers and chills. He did not take his temperature at home. He thought it might have been a Crohn's flareup so he took Benadryl and Tylenol at home, which typically relieve his Crohn's flareups, which did not help his symptoms. Pain does get worse with eating however patient has not been able to eat or drink much. He endorses nausea but no vomiting. He also endorses yellow diarrhea since Friday, denies any hematochezia. He denies any chest pain or shortness of breath. He denies nicotine use. He does occasionally drink alcohol, did have a beverage last night. He did take his home medications today, has discontinued many of them including metoprolol and spironolactone. He still uses CPAP for sleep apnea. He wishes to be full code. Admission Exam Per Admitting Provider The patient is awake, alert and oriented 3, well developed and well nourished, normocephalic and atraumatic, in no acute distress. Non-toxic appearing. HEENT- EOMI, mucous membranes moist. Hearing grossly intact. Heart-normal S1 and S2. No murmurs, rubs or gallops. Lungs-clear bilaterally, no respiratory distress, no accessory muscle use. Abdomen-normal bowel sounds and soft. No ascites noted. Tender to RUQ and RLLQ. Extremities- no clubbing, cyanosis, or edema. Rheumatologic-normal range of motion. Psychiatric-normal affect. Discharge Exam General: 59yo male sitting up in bed, obese, NAD, denies pain HEENT: head atraumatic, normocephalic, mmm, trachea midline Resp: even/unlabored, no wheezing/rales CV: RRR, no significant m/r/g, no pitting edema GI: +BS, soft, slight distension but soft, no overt tenderness, minimal cramping but no guarding/rebound no rodas MSK/Neuro: nonfocal, not confused, answering questions appropriately Psych: AOx3, cooperative with exam Discharge Plan Discharge Items Patient Disposition: Home - Self-Care Reason For Visit: ACUTE CHOLECYSTITIS Discharge Diagnosis: Acute Cholecytsitis Condition on Discharge: Good Goals: You have been hospitalized for an acute medical problem. During your stay at [facility], we have made an effort to correct the problem that brought you to the hospital while keeping you as comfortable as possible. Medications were used to bring your condition under control and your discharge instructions will include directions for any medications you should take after leaving the hospital. Please make sure you see your Primary Care Provider as part of your follow up plan. Activity: As commented below Non-emergency contact: Primary Care Provider, Specialist and Floor Trader Call non-emergency contact if: you have any medication questions, your symptoms worsen, your pain is not controlled, your pain is concerning for you and you have a fever Follow-up/Referrals: Jaki Handley DO [Primary Care Provider] - 02/15/25 11:00 am Diet: Low Fiber and Low Fat Addtl Attending Provider Instructions: You have been hospitalized for abdominal pain, fever/chills and found to have evidence for acute infection in the gallbladder. Surgery was consulted and opted for CONSERVATIVE treatment with antibiotics and have done well on such. You are to continue AUGMENTIN twice daily for another 12 days to complete a 14 day course given immunocompromised with Humira. You should talk with your specialist before resuming home biologic and please discuss cirrhosis and management as seen on imaging. Please avoid any alcohol. Please continue LOW FAT, LOW FIBER diet at discharge. Please follow up with primary care in the next 7-10 days to monitor your progress. Please return to the ER if you have any increased fever/chills, pain, nausea/vomiting or inability to keep up with oral hydration. It has been a pleasure being a part of the medical team providing for you while you have been in the hospital. Take care! Pending Studies at Discharge: No Stand-Alone Forms: My [facility] [employer], Smoking Cessation Medications and DC Order Prescriptions: New amoxicillin-pot clavulanate 875-125 mg tablet 1 tab PO BID 12 Days Qty: 24 0RF Continued ondansetron HCl 8 mg tablet 8 mg PO Q12H PRN (Reason: nausea and vomiting) 6 Days Qty: 12 0RF cholecalciferol (vitamin D3) 1,250 mcg (50,000 unit) capsule 50,000 unit PO Q7D Qty: 14 1RF magnesium oxide 400 mg magnesium tablet 400 mg PO DAILY acetaminophen 500 mg tablet 1,000 mg PO BID PRN Humira Pen 40 mg/0.8 mL pen injector kit 40 mg subcut Q14D Rx Instructions: WEDNES[place]YS Q 2 WEEKS saw palmetto 450 mg capsule 900 mg PO BID Qty: 60 0RF Rx Instructions: give with food (meal/snack) omega 3-bus-exf-fish oil [Fish Oil] 1,200 (144-216) mg capsule 1 cap PO BID Qty: 60 0RF Patient Comments: stopped 08/25/22 folic acid 400 mcg tablet 0.4 mg PO BID Qty: 30 2RF albuterol sulfate 90 mcg/actuation HFA aerosol inhaler 2 puff inhalation Q6H PRN (Reason: shortness of breath or wheezing) Qty: 18 3RF Galzin 50 mg (zinc) capsule 50 mg PO QAM [id number] mg tablet 1 tab PO BID Auto Titrating CPAP Misc See Rx Instructions .ROUTE .COMPLEX Qty: 1 0RF Rx Instructions: Transition from CPAP to AutoPap 5 to 15 cm of water, mask fit to patient comfort, heated humidification, compliance download capabilities, [facility] med care budesonide 0.5 mg/2 mL suspension for nebulization 0.5 mg inhalation DAILY 30 Days Qty: 60 3RF multivitamin Tablet 1 tab PO QAM cyanocobalamin (vitamin B-12) 1,000 mcg/mL Solution 5,000 mcg IM WK Rx Instructions: W[place] ginkgo biloba 60 mg capsule 60 mg PO QAM Rx Instructions: give with meal/snack cyclosporine [Restasis] 0.05 % dropperette 1 drp OPB BID PRN fenugreek seed extract 500 mg capsule 500 mg PO BID [place] 1 tab PO BID Rx Instructions: 40,000 units tramadol 50 mg tablet 50 mg PO Q6H PRN (Reason: pain) Qty: 10 0RF Rx Instructions: for acute post-surgical pain not managed with tylenol/ice Held celecoxib [Celebrex] 200 mg capsule 200 mg PO QAM PRN Hold Instructions: Resume on 02/12/25. No Action (DME) insulin syringe-needle U-100 [BD Insulin Syringe Ultra-Fine] 1 mL 30 gauge x 1/2" syringe See Rx Instructions .Route Qty: 100 0RF Rx Instructions: As directed (DME) Aerochamber MV Spacer See Rx Instructions .Route Qty: 10 0RF Rx Instructions: As directed (DME) comp.stocking,knee,long,medium Misc See Rx Instructions .Route Qty: 12 0RF Rx Instructions: Bilateral Thigh high, compression 20-30mmhg Discharge Orders: Discharge Order (Routine); Ordered 02/07/25 Ordered By: Emilia Garrison Admission Data Admit Date/Time: 02/06/25 00:22 Attending Provider: Jf Miller Admit Provider: Kevin Levine Primary Care Provider: Jaki Handley Other Providers: Kevin Levine; Jus Valadez Hospital Stay Data Consultations 02/05/25 23:39 Consult General Surgery Routine ED Decision to Admit Stat Diagnostic Imagining Performed Abdomen/Pelvis CT 02/05/25 19:58 Exam(s): CT ABDOMEN + PELVIS With Contrast IV Amt: 90 ml optiray 320 EXAM: CT Abdomen and Pelvis With Intravenous Contrast CLINICAL HISTORY: Reason for exam: RLQ pain; dysuria, h/o Crohn's disease TECHNIQUE: Axial computed tomography images of the abdomen and pelvis with intravenous contrast. CTDI is 28.14 mGy and DLP is 1415.4 mGy-cm. Automated exposure control was utilized for the study. A dose lowering technique was utilized adhering to the principles of ALARA. CONTRAST: Patient received 90 ml optiray 320 of IV contrast COMPARISON: 03/10/2023 FINDINGS: Lung bases: Unremarkable. No mass. No consolidation. ABDOMEN: Liver: The liver is enlarged measuring 21 cm craniocaudad. No focal liver mass lesion is seen. Gallbladder and bile ducts: There are multiple noncalcified gallstones in the dependent portion of the gallbladder as well as 6 mm gallbladder wall thickening and surrounding fluid. No ductal dilation. Pancreas: Unremarkable. No mass. No ductal dilation. Spleen: The spleen is enlarged measuring 20 x 20.8 x 12.7 cm 2.77 L, increased since previous when it measured 16 x 10.5 x 16.5 cm 1.45 L. Adrenals: Unremarkable. No mass. Kidneys and ureters: Nonobstructive 3 mm caliceal calculus in the left kidney. No hydronephrosis or ureterolithiasis is seen involving either kidney. Stomach and bowel: Unremarkable. No obstruction. No mucosal thickening. PELVIS: Appendix: No findings to suggest acute appendicitis. Bladder: Unremarkable. No mass. Reproductive: Unremarkable as visualized. ABDOMEN and PELVIS: Intraperitoneal space: Bowel loops are nondilated. There is a staple line at a small bowel to mid right colon anastomosis. No pneumoperitoneum, free fluid, or acute inflammatory changes are seen involving the bowel. Bones/joints: Mild degenerative changes in the spine. No acute fracture or subluxation. Soft tissues: Unremarkable. Vasculature: The portal vein is dilated measuring 19 mm suggesting portal venous hypertension. No ascites. Lymph nodes: Unremarkable. No enlarged lymph nodes. IMPRESSION: 1. The portal vein is dilated measuring 19 mm suggesting portal venous hypertension. No ascites. 2. There are multiple noncalcified gallstones in the dependent portion of the gallbladder as well as 6 mm gallbladder wall thickening and surrounding fluid. Consider acute cholecystitis. 3. The spleen is enlarged measuring 20 x 20.8 x 12.7 cm 2.77 L, increased since previous when it measured 16 x 10.5 x 16.5 cm 1.45 L. 4. Bowel loops are nondilated. There is a staple line at a small bowel to mid right colon anastomosis. No pneumoperitoneum, free fluid, or acute inflammatory changes are seen involving the bowel. Electronically signed by: Christ Ruiz MD 02/05/25 23:28 PM Gallbladder Ultrasound 02/06/25 00:00 EXAM: US gallbladder CLINICAL HISTORY: ?acute [place] on CT TECHNIQUE: Limited ultrasound of the liver and gallbladder (RUQ) was performed in greyscale and Doppler. COMPARISON: No prior studies are available for comparison. FINDINGS: Liver: Liver size: Mildly enlarged, the right lobe measuring 20.6 cm, displays heterogenous echotexture with nodular outlines no definite focal lesions. Hepatic vasculature appears normal. Gallbladder: The gallbladder is distended with multiple calculi within the lumen of the gallbladder. The wall of the gallbladder appeared edematous and thickened, wall thickness of about 4.2 mm. A streak of pericholecystic fluid is seen. Comet tail artifact also noted along the nondependent wall of the gallbladder findings are likely to represent acute, on top of chronic, cholecystitis associated with adenomyomatosis. Please correlate clinically, and follow-up is advised. Biliary Tree: Common bile duct diameter: [5 mm].The common bile duct is within normal limits in caliber and not dilated evidence of choledocholithiasis or biliary obstruction. Right kidney is normal in size measuring 13.5 centimeters sin agittal diameter with normal parenchymal thickness and normal corticomedullary differentiation, no hydronephrosis or stones small cyst is seen near the lower pole, measuring about 1.7 x 1.4 x 1.4 cm with no septations no calcifications and no sizable soft tissue component IMPRESSION: 1. Parenchyma to his liver disease [early cirrhotic changes] with no focal lesions. 2. The gallbladder is distended with multiple calculi within the lumen of the gallbladder. The wall of the gallbladder appeared edematous and thickened, wall thickness of about 4.2 mm. A streak of pericholecystic fluid is seen. Comet tail artifact also noted along the nondependent wall of the gallbladder findings are likely to represent acute, on top of chronic, cholecystitis associated with adenomyomatosis. Please correlate clinically, and follow-up is advised. 3. Right renal benign-looking cyst. Electronically signed by Yasir Garcia 02-06-2025 03:36 AM Discharge Instructions Given to Patient (Per Discharging Provider) You have been hospitalized for abdominal pain, fever/chills and found to have evidence for acute infection in the gallbladder. Surgery was consulted and opted for CONSERVATIVE treatment with antibiotics and have done well on such. You are to continue AUGMENTIN twice daily for another 12 days to complete a 14 day course given immunocompromised with Humira. You should talk with your specialist before resuming home biologic and please discuss cirrhosis and management as seen on imaging. Please avoid any alcohol. Please continue LOW FAT, LOW FIBER diet at discharge. Please follow up with primary care in the next 7-10 days to monitor your progres s. Please return to the ER if you have any increased fever/chills, pain, nausea/vomiting or inability to keep up with oral hydration. It has been a pleasure being a part of the medical team providing for you while you have been in the hospital. Take care! Total Time Total Time Spent Total Time Spent (In Minutes): 40 Coding Level of Care Code 68133 INP/OBS DISCH >30 MIN Diagnoses Acute cholecystitis K81.0 Hyponatremia E87.1 Crohn's disease K50.919 Digestive disease complication type: unspecified complication Gastrointestinal tract location: unspecified location Liver cirrhosis K74.60
[2025-02-07 09:44] LABS: Magnesium 1.7 mg/dl (1.7-2.4)
[2025-02-07] MEDS: MAGNESIUM SULFATE / D5W 1 GM/100 ML BAG IV SCH (10:06)
== END 2025-02-07 13:53 | disposition home or self-care (01) ==
LOC: ED 19:17 → 3N 19:17 → SUATTDRO 02-06 00:22 → 3N 02-06 01:45